=== PATIENT | female | born 1955 | race Caucasian/White ===

== ENCOUNTER → 2021-04-03 08:17 | Outpatient (BNVA) | payer MEDICARE, MEDICAID, SELFPAY | PROVIDERS: Visit Provider Nurse Practitioner Family | DX: G43.109 Migraine with aura, not intractable, without status migrainosus (principal); R25.1 Tremor, unspecified | CPT/HCPCS: Q3014 ==

== ENCOUNTER → 2021-05-26 08:21 | Outpatient (BNVA) | payer MEDICARE, MEDICAID, SELFPAY | PROVIDERS: PCP Internal Medicine; Visit Provider Nurse Practitioner Family | DX: G43.109 Migraine with aura, not intractable, without status migrainosus (principal); R53.1 Weakness; G25.0 Essential tremor | CPT/HCPCS: 99212 ==

== ENCOUNTER → 2021-08-04 08:09 | Outpatient (BNVA) | payer MEDICARE, MEDICAID, SELFPAY | PROVIDERS: PCP Internal Medicine; Visit Provider Nurse Practitioner Family | DX: G25.0 Essential tremor (principal); R20.2 Paresthesia of skin; R53.1 Weakness; G43.109 Migraine with aura, not intractable, without status migrainosus | CPT/HCPCS: 99212 ==

== ENCOUNTER 2021-08-20 08:28 | Outpatient (REF) | payer MEDICARE, MEDICAID, SELFPAY ==
--- NOTE | 2021-08-20 08:35 | EMG_ITS ---
This is a 65-year-old woman with numbness in both feet. She gets intermittent numbness and tingling that comes and goes. PHYSICAL EXAMINATION: On examination, she is alert and oriented with normal intellectual functions. Cranial nerves II through XII are normal. Reflexes hypoactive. IMPRESSION: Rule out sensory neuropathy. 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 Normal EMG of the right L4-S1 innervated muscles. MD OZE Macias/GRETCHEN / [id number]
== END 2021-08-20 08:29 | disposition home or self-care (01) ==
LOC: HO.NEURO 08:28
PROVIDERS: PCP Internal Medicine; Visit Provider Nurse Practitioner Family
DX: R20.2 Paresthesia of skin (principal)
CPT/HCPCS: 95885; 95911

== ENCOUNTER 2021-09-10 12:45 | Outpatient (REF) | payer MEDICARE, MEDICAID, SELFPAY ==
--- NOTE | 2021-09-10 12:48 | EEG_ITS ---
This is a 16-channel EEG with an EKG lead. The patient is reported awake during the tracing. Background EEG rhythm is 12 to 14 hertz low to medium amplitude posteriorly and lower amplitude fast anteriorly. Photic stimulation and hyperventilation were not performed. No definite sharp wave spikes or paroxysmal tendency noted. Cardiac lead does not reveal any significant abnormality. IMPRESSION: Unremarkable EEG. MD MAIA Villanueva/GRETCHEN / [id number]
== END 2021-09-10 12:46 | disposition home or self-care (01) ==
LOC: HO.NEURO 12:45
PROVIDERS: Visit Provider Nurse Practitioner Family
DX: G43.109 Migraine with aura, not intractable, without status migrainosus (principal); R53.1 Weakness
CPT/HCPCS: 95816

== ENCOUNTER → 2021-11-03 08:12 | Outpatient (BNVA) | payer MEDICARE, MEDICAID, SELFPAY | PROVIDERS: PCP Internal Medicine; Visit Provider Nurse Practitioner Family | DX: G25.0 Essential tremor (principal); R53.1 Weakness; G43.109 Migraine with aura, not intractable, without status migrainosus; R20.2 Paresthesia of skin | CPT/HCPCS: 99212 ==

== ENCOUNTER → 2022-07-01 10:31 | Outpatient (BNVA) | payer MEDICARE, MEDICAID, SELFPAY | PROVIDERS: PCP Internal Medicine; Visit Provider Nurse Practitioner Family | DX: G25.0 Essential tremor (principal); R20.2 Paresthesia of skin; Z79.899 Other long term (current) drug therapy | CPT/HCPCS: 99212 ==

== ENCOUNTER 2022-11-30 11:20 | Outpatient (AMB) | payer MEDICARE, MEDICAID, SELFPAY ==
--- NOTE | 2022-11-30 11:27 | MHC.OFFVIS ---
Intake Vital Signs 11/30/22 11:28 Height 5 ft 2 in Weight 220 lb 8 oz BMI 40.3 BP 130/72 Blood Pressure Location Rt brachial Position Sitting Pulse 98 Pulse Source Pulse Oximeter Pulse Oximetry (%) 99 Oxygen Delivery Method Room Air Intake Visit Reasons: 5m follow up Tremors-Confirmed Intake Note: Patient presents for 5 month follow up tremors. Patient states tremors are just getting worst . Allergies umeclidinium [From Incruse Ellipta] Allergy (Severe, Verified 11/30/22 11:30) Anaphylaxis mold Allergy (Intermediate, Verified 11/30/22 11:30) Itchy Eyes Medication List - Last Reconciled 11/30/22 by NAMRATA Guillermo albuterol sulfate 90 mcg/actuation (Ventolin HFA) 2 puffs inhalation Q4-6H PRN albuterol sulfate mg inhalation Q4H PRN alendronate 70 mg PO QWEEK amlodipine 10 mg PO DAILY aspirin 81 mg PO DAILY gvwyayeadt-nqydspmi-recdmbotmr 160-9-4.8 mcg/actuation (Breztri Aerosphere) inhalations inhalation cholecalciferol (vitamin D3) 25 mcg PO DAILY citalopram 20 mg PO DAILY estradiol 0.01%(0.1mg/gram) grams vaginal fenofibrate nanocrystallized 145 mg PO DAILY gabapentin 100mg bid and 300mg qhs orally bedtime; 30 days lancets (FreeStyle Lancets) As directed loratadine 20 mg PO DAILY lorazepam 0.5 mg PO DAILY PRN losartan 25 mg PO DAILY metformin 500 mg PO DAILY mirabegron ER (Myrbetriq) 25 mg PO DAILY multivitamin with folic acid 400 mcg (Daily-Alden (with folic acid)) 1 tab PO DAILY nortriptyline 50 mg PO BEDTIME omeprazole 40 mg PO DAILY ropinirole 0.5 mg (2 x 0.25 mg) PO TID 30 days rosuvastatin 40 mg PO DAILY tolterodine ER 4 mg PO DAILY topiramate (Topamax) 100 mg PO BEDTIME 30 days HPI HPI Comments History of Present Illness Details Right-handed 67-yr-old female presents for f/u visit. The tremor is more bothersome. The tremor is worse on the left, but she is more affected by the right handed tremor as she is right handed. The tremor makes it difficult to perform ADL's, such as writing, eating, holding something. The tremor causes social embarrassment, especially when trying to eat. Ropinirole is not helping. Pt is interested in trying Casey trio type device- her cardiac loop montor is being removed next week. Pt reports her BLE numbness/tingling is better with gabapentin and using slippers in her home helps. Her migariens are well-controlled. She is using her CPAP nightly, but sometimes she may not sleep well. [facility] Medical History COPD (chronic obstructive pulmonary disease) Family History Father Myocardial infarction FHx: prostate cancer Emphysema lung Mother HTN (hypertension) Breast cancer Cervical cancer Social History Household Members: None Housing: Apartment Alcohol intake: current Alcohol intake frequency: holidays/special occasions only Patient Tobacco Use Status: Former Tobacco user Substance Use Type: Marijuana Review of Systems Const All systems reviewed & are unremarkable except as noted in HPI and below Physical Exam Vital Signs: Last Vital Signs Pulse 98 11/30/22 11:28 BP 130/72 11/30/22 11:28 Pulse Ox 99 11/30/22 11:28 Oxygen Delivery Method Room Air 11/30/22 11:28 BMI result Body Mass Index 40.3 Const General: cooperative and no acute distress Resp Effort & Inspection: normal respiratory effort and able to speak in complete sentences Neuro Other: General: A&O x's 3 Expression: Intact- chronic mild left facial droop Voice: Intact Tremor: BUE L > R kinetic and postural tremor. Tone: None Dyskinesia: None FFM: Intact Gait: Steady gait Psych: Pleasant affect Assessment & Plan Assessment & Plan (1) Essential tremor: Code(s): G25.0 - Essential tremor (2) Migraine with aura: Code(s): G43.109 - Migraine with aura, not intractable, without status migrainosus (3) Paresthesia of both lower extremities: Code(s): R20.2 - Paresthesia of skin Plan For Essential tremor- Continue Ropinirole for now. Once cardiac loop recorder removed next week-will initiate order for Casey kIQ System with TAPS (Transcutaneous Afferent Patterned Stimulation)- bilateral arms. Pt would benefit from TAPs tx as pt has bothersome kinetic and postural tremor d/t ET which impedes ADL abilities of writing and eating, which causes emotional distress. Pt tremor perists despite reasonable trials of Primidone, Gabapentin, Ropinirole. Pt is not a candidate to try Beta-Blockers d/t symptomatic Asmtha/COPD. Future considerations- DBS, FUS. For paresthesias: Continue Gabapentin to 100mg bid and 300mg qhs For migraine: Continue Nortriptyline, Topiramate. ?f/u in 4 months or sooner prn Coding Level of Care Code Est Pt Level 4 (39932) Diagnoses Essential tremor G25.0 Migraine with aura G43.109 Paresthesia of both lower extremities R20.2
[2022-11-30 11:28] VITALS: BP 130/72; PULSE 98; O2SAT 99; BMI 40.3
== END 2022-11-30 12:03 | disposition home or self-care (01) ==
PROVIDERS: Visit Provider Nurse Practitioner Family
DX: G25.0 Essential tremor (principal); G43.109 Migraine with aura, not intractable, without status migrainosus; R20.2 Paresthesia of skin
CPT/HCPCS: 99214

== ENCOUNTER → 2022-11-30 11:20 | Outpatient (BNVA) | payer MEDICARE, MEDICAID, SELFPAY | PROVIDERS: Visit Provider Nurse Practitioner Family | DX: G25.0 Essential tremor (principal); G43.109 Migraine with aura, not intractable, without status migrainosus; R20.2 Paresthesia of skin | CPT/HCPCS: 99212 ==

== ENCOUNTER 2023-06-22 13:56 | Outpatient (AMB) | payer OTHER, SELFPAY ==
--- NOTE | 2023-06-22 13:57 | MHC.OFFVIS ---
Vital Signs 06/22/23 14:07 Height 5 ft 2 in Weight 231 lb 8 oz BMI 42.3 BP 142/70 H Blood Pressure Location Rt brachial Position Sitting Pulse 111 H Pulse Source Pulse Oximeter Pulse Oximetry (%) 97 Oxygen Delivery Method Room Air Intake Visit Reasons: 4 mnts f/u appt-CONF w/address Intake Note: Patient presents for 4 months f/u. the tremors on both hands are getting worse. Wants to talk about deep breathing simulator. Allergies umeclidinium [From Incruse Ellipta] Allergy (Severe, Verified 06/22/23 14:02) Anaphylaxis mold Allergy (Intermediate, Verified 06/22/23 14:02) Itchy Eyes Medication List - Last Reconciled 06/22/23 by ANMRATA Guillermo albuterol sulfate 90 mcg/actuation (Ventolin HFA) 2 puffs inhalation Q4-6H PRN albuterol sulfate mg inhalation Q4H PRN alendronate 70 mg PO QWEEK amlodipine 10 mg PO DAILY aspirin 81 mg PO DAILY imrfqrfxvg-ltwcbkht-jieovjqyop 160-9-4.8 mcg/actuation (Breztri Aerosphere) inhalations inhalation bupropion HCl 100 mg PO BID cholecalciferol (vitamin D3) 25 mcg PO DAILY citalopram 20 mg PO DAILY estradiol 0.01%(0.1mg/gram) grams vaginal fenofibrate nanocrystallized 145 mg PO DAILY gabapentin 100mg bid and 300mg qhs orally bedtime; 30 days lancets (FreeStyle Lancets) As directed loratadine 20 mg PO DAILY lorazepam 0.5 mg PO DAILY PRN losartan 25 mg PO DAILY metformin 500 mg PO DAILY mirabegron ER (Myrbetriq) 25 mg PO DAILY nortriptyline 50 mg PO BEDTIME omeprazole 40 mg PO DAILY rimegepant (Nurtec ODT) 75 mg PO ONCE PRN 30 days MDD 1 tab ropinirole 0.5 mg (2 x 0.25 mg) PO TID 30 days rosuvastatin 40 mg PO DAILY tolterodine ER 4 mg PO DAILY topiramate (Topamax) 100 mg PO BEDTIME 30 days HPI Comments Details: 67-yr-old female presents for f/u visit. Pt had a [facility] ER eval for sudden onset left sided weakness. Head CT, Head/Neck CTA, Brain MRI w/o- no acute findings, slight progression of white matter T2/FLAIR hyperintensities. Per pt, a nurse told he rsmatthew had had a TIA. Per d/c note- dx likely atypical migraine . Pt had notified the office after this, as pt has had increase in her typical migarine. Pt has h/o migraine a/w left sided weakness and paresthesias. Pt was advised to start Nurtec. Pt states since, her migraines are well controlled on Topiramate, and Nurtec helps with breakthrough migraine. Having 3-4 migraines per month. Pt is curious about DBS tx for tremor. Pt reports she can sometimes be dizzy- like the world is moving or like the ground is moving. She can also feel lightheaded, when she stands up to quickly will fall back onto her couch. She had a recent fall, tripped over her own 2 feet. Pt states at her PCP office, she had a vestibular eval- was told dizziness not r/t inner ear. Also EKG and orthostatic BPs- pt states was abnormal. Her PCP has recently referred her to Cardiology- [facility] clinic. She is working w/ a community health specialist from [employer] in her building. She is now attending meals in a community room- provided by [employer]. They are helping her get a lifeline device, MANAGER PATIENT, and straighten out her food stamps. Pt reports she is still having tremors- with rest and action. Does not notice if more right or left sided. She is prone to spill things. She is using her heavy silverware and rubber straws. Using covered water cup, but has not been using this for coffee. Hands can feel stiff, tingling, cold- especially if holding something for a long time. 03/10/23, Brain MRI w/o IMPRESSION: 1. No acute/subacute infarct, mass, hemorrhage, or other acute intracranial abnormality. 2. Minimal T2/FLAIR hyperintense foci in the white matter, nonspecific but most likely reflecting chronic small vessel disease which has slightly progressed since 10/07/2020. 03/09/23, CT Angio Head/Neck Hyperacute Stroke IMPRESSION: No proximal occlusion or high grade stenosis in the major arteries of the head and neck. 04/10/19, Echocardiogram, Summary The left ventricular size is normal. Left ventricular wall thickness is normal. The LV systolic function is vigorous . The left ventricular ejection fraction is 65-75 %. No obvious wall motion abnormalities seen on limited views. Left ventricular filling pressures are indeterminate. PFSH Medical History COPD (chronic obstructive pulmonary disease) Family History Father Myocardial infarction FHx: prostate cancer Emphysema lung Mother HTN (hypertension) Breast cancer Cervical cancer Social History Household Members: None Housing: Apartment Alcohol intake: current Alcohol intake frequency: holidays/special occasions only Patient Tobacco Use Status: Former Tobacco user Substance Use Type: Marijuana Review of Systems Const All systems reviewed & are unremarkable except as noted in HPI and below Physical Exam Vital Signs: Last Vital Signs Pulse 111 H 06/22/23 14:07 BP 142/70 H 06/22/23 14:07 Pulse Ox 97 06/22/23 14:07 Oxygen Delivery Method Room Air 06/22/23 14:07 BMI result Body Mass Index 42.3 Const General: cooperative and no acute distress Resp Effort & Inspection: normal respiratory effort and able to speak in complete sentences Neuro Other: General: A&O x's 3 Expression: Intact- chronic mild left facial droop Voice: Intact Tremor: BUE L > R kinetic and postural tremor. Tone: None Dyskinesia: None FFM: Intact Foot taps- slight decrease on left Gait: Steady gait Psych: Pleasant affect Assessment & Plan Assessment & Plan (1) Vertigo: Code(s): R42 - Dizziness and giddiness Category: Medical (2) Tremor: Code(s): R25.1 - Tremor, unspecified Category: Medical (3) Orthostatic lightheadedness: Code(s): R42 - Dizziness and giddiness Category: Medical (4) Paresthesia and pain of both upper extremities: Code(s): R20.2 - Paresthesia of skin; M79.601 - Pain in right arm; M79.602 - Pain in left arm Category: Medical (5) Migraine with aura: Code(s): G43.109 - Migraine with aura, not intractable, without status migrainosus Category: Medical Plan Pt is advsied to: Have PT vestibular eval & tx.- order given to pt. Tilt table test to assess for cardiogenic vs neurogenic orthostatic hypotension. Cardiology consult as ordered BUE EMG/NCS. For Essential tremor- Discussed that pt's s/s of dizziness, lightheadedness will need to be better managed prior to considering DBS tx for tremor. Continue Ropinirole for now- may need to consider reducing. Pt tremor perists despite reasonable trials of Primidone, Gabapentin, Ropinirole. Pt is not a candidate to try Beta-Blockers d/t symptomatic Asmtha/COPD. For paresthesias: Continue Gabapentin to 100mg bid and 300mg qhs For migraine: Continue Nortriptyline, Topiramate. Continue Nurtec ODT 75mg qd prn. Acute migraine tx contraindications: all triptans contraindicated d/t h/o TIA, HTN, HLD. ?f/u upon review of above and in 6 months or sooner prn Orders: Orders ECG Tilt Table Test Today M79.601 - Pain in right arm, M79.602 - Pain in left arm, R20.2 - Paresthesia of skin, R25.1 - Tremor, unspecified, R42 - Dizziness and giddiness NE electromyogram (EMG) Today M79.601 - Pain in right arm, M79.602 - Pain in left arm, R20.2 - Paresthesia of skin, R25.1 - Tremor, unspecified PT Evaluation and Treatment Today R42 - Dizziness and giddiness NE nerve conduction velocity Today M79.601 - Pain in right arm, M79.602 - Pain in left arm, R20.2 - Paresthesia of skin, R25.1 - Tremor, unspecified Coding Level of Care Code Est Pt Level 4 (42473) Diagnoses Vertigo R42 Tremor R25.1 Orthostatic lightheadedness R42 Paresthesia and pain of both upper extremities R20.2; M79.601; M79.602 Migraine with aura G43.109
[2023-06-22 14:07] VITALS: BP 142/70; PULSE 111; O2SAT 97; BMI 42.3
== END 2023-06-22 14:02 | disposition home or self-care (01) ==
PROVIDERS: PCP Internal Medicine; Visit Provider Nurse Practitioner Family
DX: R42 Dizziness and giddiness (principal); R25.1 Tremor, unspecified; R20.2 Paresthesia of skin; M79.601 Pain in right arm; M79.602 Pain in left arm; G43.109 Migraine with aura, not intractable, without status migrainosus
CPT/HCPCS: 99214

== ENCOUNTER → 2023-06-22 13:56 | Outpatient (BNVA) | payer OTHER, MEDICARE, SELFPAY | PROVIDERS: PCP Internal Medicine; Visit Provider Nurse Practitioner Family | DX: R42 Dizziness and giddiness (principal); R25.1 Tremor, unspecified; R20.2 Paresthesia of skin; M79.601 Pain in right arm; M79.602 Pain in left arm; G43.109 Migraine with aura, not intractable, without status migrainosus; Z79.899 Other long term (current) drug therapy | CPT/HCPCS: 99212 ==

== ENCOUNTER 2023-06-29 08:27 | Outpatient (REF) | payer OTHER, SELFPAY ==
--- NOTE | 2023-06-29 08:29 | EMG_ITS ---
Bilateral median and ulnar motor and sensory studies were performed. Bilateral radial and median and lateral antecubital sensory studies were performed and paraspinal muscles were tested with a needle. IMPRESSION: Mild bilateral median neuropathy across carpal tunnel affecting sensory components. MD MAIA Villanueva/GRETCHEN / [id number]
== END 2023-06-29 08:28 | disposition home or self-care (01) ==
LOC: HO.NEURO 08:27
PROVIDERS: PCP Internal Medicine; Visit Provider Nurse Practitioner Family
DX: R25.1 Tremor, unspecified (principal); R20.2 Paresthesia of skin; M79.601 Pain in right arm; M79.602 Pain in left arm
CPT/HCPCS: 95886; 95913

== ENCOUNTER 2024-02-04 14:12 | Outpatient (AMB) | payer OTHER, SELFPAY ==
--- OUTSIDE RECORDS SUMMARY | 2024-02-04 14:14 | XMS_ITS ---
Author Organization [facility] Address [address] [facility], [facility] [place] [address] Care Team Providers Care Coal Passer Name Role Phone Jude Potts [phone] ALLERGIES, ADVERSE REACTIONS, ALERTS Substance Code Code System Type Reaction Severity Status Start Date End Date Incruse Ellipta 0989443 RxNorm Drug allergy () 0 Incruse Ellipta 2643378 RxNorm Drug allergy () 1 MEDICATIONS Medication Code Code System Start Date Stop Date Route Dosage Directions Fill Instructions Augmentin 088155 RxNorm 020 2019 oral 1 doxycycline monohydrate 6295738 RxNorm 020 2019 1 prednisone 364075 RxNorm 020 2019 1 simvastatin RxNorm 11/05/19 22 tramadol RxNorm 11/05/19 22 loratadine RxNorm 11/05/19 22 alendronate RxNorm 04/03/19 23 benzonatate RxNorm 04/03/19 23 losartan RxNorm 04/03/19 23 rosuvastatin RxNorm 04/03/19 23 tolterodine RxNorm 04/03/19 23 Paxlovid (EUA) 7813446 RxNorm 04/03/19 23 2022 oral 3 requip RxNorm losartan 0 RxNorm oral lorazepam RxNorm 020 docusate sodium 0 RxNorm oral metformin RxNorm 11/05/19 22 hydralazine 0 RxNorm oral alendronate 0 RxNorm oral albuterol sulfate RxNorm diclofenac sodium 0 RxNorm topical gabapentin RxNorm citalopram RxNorm 020 benzonatate 585854 RxNorm 020 01/24 oral 1 topiramate RxNorm amlodipine RxNorm 020 omeprazole RxNorm 020 nortriptyline RxNorm 020 Vitamin D3 RxNorm benzonatate 514606 RxNorm 022 023 oral 1 prednisone 489857 RxNorm 1 021 oral 1 Aspirin Childrens RxNorm 020 Ventolin HFA RxNorm 04/03/19 rosuvastatin 0 RxNorm oral bupropion HBr 0 RxNorm oral Breztri Aerosphere 0 RxNorm inhalation Lagevrio (EUA) 1048998 RxNorm 11/05/19 22 2021 oral 4 PROBLEMS Problem Name Code Code System Start Date End Date Stat Anxiety disorder 01958330 [facility] 01/10/2020 Ac tive GERD 068649472 [facility] 01/10/2020 Active Hyperlipidemia 78962094 [facility] 01/10/2020 Acti ve Hypertension 84727329 [facility] 01/10/2020 Active Depression 38484606 [facility] 01/10/2020 Active Tremor, unspecified (781.0, R25.1) 57156597 [facility] Inactive Allergic rhinitis 23257979 [facility] 01/10/2020 A ctive Asthma 233995937 [facility] 01/10/2020 Active Migraines 91463061 [facility] 01/10/2020 Active Insomnia (780.52, G47.00) 001275628 [facility] 06/16/2020 Inactive Bronchitis, acute (466.0, J20.9) 46742853 [facility] 020 Inactive Chronic obstructive pulmonar y disease, unspecified 11909530 [facility] 01/15/2020 Active Contact with and (suspected) exposure to other viral communicable diseases (Z20.828) [facility] 01/19/2020 Inactive Chronic obstructive pulmonar y disease with (acute) lower respiratory infection (J44.0) [facility] 01/19/2020 Inactive Cough (R05) [facility] 01/19/2020 Inactive Other disorders of periphera l nervous system (355.9, G64) 406774884 [facility] 06/16/2020 Inactive COVID-19, confirmed by labor atory testing (U07.1) 627999253 [facility] 11/04/2021 Inactive Diabetes, Type 2 64996120 [facility] 11/04/2021 Act maren Cough, unspecified (R05.9) [facility] 11/06/2021 Inactive COVID-19, Screening Encounte r (Z11.52) 717384420 [facility] 02/10/2022 Inactive Viral infection, unspecified (B34.9) 04908184 [facility] 02/10/2022 Inactive Other fatigue (R53.83) [facility] 02/12/2022 Inactive Contact with and (suspected) exposure to COVID-19 (Z20.822) [facility] 02/12/2022 Inactive Acute pharyngitis, unspecifi ed (J02.9) [facility] 04/07/2022 Inactive Restless legs syndrome 17205576 [facility] Active Age-related osteoporosis wit hout current pathological fracture 42003862 [facility] Active Osteoporosis without current pathological fracture 76878554 [facility] Active Other specified forms of tremor 01158991 [facility] Active Chest pain, unspecified 43611257 [facility] 01/11/2024 Active ENCOUNTERS Encounter Diagnosis Code Code System Date Stat Chest pain, unspecified 93170920 [facility] 01/11/2024 A ctive IMMUNIZATIONS Vaccine Code Code System Vaccine Name Date Status Lot Number Photoengraving Etcher Name Additional Notes 115 CVX Tdap 06/27/19 23 Completed [id number] [employer] VITAL SIGNS Code Code System Vitals Name Date Value and Un its 8462-4 Loinc Blood Pressure-Diastolic 01/11/2024 68 mmHg 8480-6 [facility] Blood Pressure-Systolic 01/11/2024 1 07 mmHg 8867-4 [facility]inc Heart Rate 01/11/2024 113 /min 9279-1 Loinc Respiratory Rate 01/11/2024 20 /min 8310-5 Loinc Body Temperature 01/11/2024 97.6 F 00809-0 [facility] Oxygen Saturation 01/11/2024 98 % SOCIAL HISTORY * None PROCEDURES Code Code System Procedure Date Status Notes 40651 Cpt4 Electrocardiogra m - 12 Lead 01/11/2024 completed Jude Potts - 01/11/2024 96 beats per minute, regular rate, sinus rhythm, Impression: Normal sinus rhythm with rate of 96, wavy baseline but appears to have around half to [address] depression in 2, V4, V5, V6. A9150 Cpt4 PO Aspirin 01/11/2024 completed Melanie Pavon - 01/11/2024 Dose: 324 mg (4?81 mg). Form: tablet (chewable). Route: oral. Expiration date: 01/10/2025. Photoengraving Etcher lot #: [id number]. [facility] #: [id number].Patient was observed for 15 minutes. Patient tolerated procedure well. MEDICAL EQUIPMENT * Patient has no history of implantable devices ASSESSMENT * None TREATMENT PLAN No Treatment Plan Items Lab Tests None GOALS * None HEALTH CONCERNS * No Health Concerns FUNCTIONAL AND COGNITIVE STATUS * None CONSULTATION NOTES * Kailyn Steve - 01/11/2024 ED TransferSchedule: CompletedNotes:* Comments: 68-year-old female with a history of COPD, hypertension presenting with cough for 2 weeks, however, also notes she has been experiencing chest pain with right arm pain and numbness since last night. EKG here demonstrates ST abnormalities primarily in the lateral precordial leads. Full dose chewable aspirin given. Mode of transport is EMSStability Status is stableOrdered 01/11/2024 12:17 PM by Julian Juarez edited 01/12/2024 04:08 PM by Kailyn Steve MA HARGE SUMMARY NOTES * None HISTORY AND PHYSICAL NOTES * Reason for visit - Illness Patient: GAGE JORDAN, Sex: F (ID# [id number]) Date of : 1955 (68 years) Visit on 01/11/2024 (Log# [id number]) Historian: Self History of Present Illness: 68-year-old female with a history of hypertension and COPD presenting for evaluation of cough, chest pain and right arm pain. Patient states she has been coughing for 2 weeks. Cough seems to have gotten worse. Starting last night she began having pain in the right side of her chest that extends into her right arm with right arm numbness. She feels this is triggered by coughing, however, patient has been repeatedly coughing so seems difficult to discern pain induced by coughing from the chest/arm pain being from elsewhere. Patient has no associated diaphoresis, nausea vomiting or weakness. Complaint: The patient presents with a chief complaint of cough of the chest since 2 weeks ago. The patient also reports congestion, headache, and nasal congestion as abnormal symptoms related to the complaint. Review of Systems: The patient complains of the following recent symptoms: Neurological: headache ENT and Mouth: nasal congestion Respiratory: congestion cough: See HPI Allergies: Incruse Ellipta: Drug allergy. Medications: lorazepam: lorazepam; 0 refill(s); metformin: metformin; 0 refill(s); albuterol sulfate: albuterol sulfate; 0 refill(s); gabapentin: gabapentin; 0 refill(s); citalopram: citalopram; 0 refill(s); topiramate: topiramate; 0 refill(s); amlodipine: amlodipine; 0 refill(s); omeprazole: omeprazole; 0 refill(s); nortriptyline: nortriptyline; 0 refill(s); Vitamin D3: Vitamin D3; 0 refill(s); Aspirin Childrens: Aspirin Childrens; 0 refill(s); Ventolin HFA: Ventolin HFA; 0 refill(s); alendronate: alendronate; (oral) days; 0 refill(s); losartan: losartan; (oral) days; 0 refill(s); rosuvastatin: rosuvastatin; (oral) days; 0 refill(s); requip: requip; 0 refill(s); Breztri Aerosphere: Breztri Aerosphere; (inhalation) days; 0 refill(s); bupropion HBr: bupropion HBr; (oral) days; 0 refill(s); diclofenac sodium: diclofenac sodium; (topical) days; 0 refill(s); docusate sodium: docusate sodium; (oral) days; 0 refill(s); hydralazine: hydralazine; (oral) days; 0 refill(s); Problem List: Anxiety disorder (status Active) GERD (status Active) Hyperlipidemia (status Active) Hypertension (status Active) Depression (status Active) Allergic rhinitis (status Active) Asthma (status Active) Migraines (status Active) Chronic obstructive pulmonary disease, unspecified (status Active) Diabetes, Type 2 (status Active) Restless legs syndrome (status Active) Age-related osteoporosis without current pathological fracture (status Active) Osteoporosis without current pathological fracture (status Active) Other specified forms of tremor (status Active) Surgeries: Bladder surgery, w/cryosurgery: - (Not Sure of Date) Hysterectomy, Partial: - (Not Sure of Date) Ankle Surgery, NOS: - (Not Sure of Date) Appendectomy: - (Not Sure of Date) Carpal Tunnel Release: - (Not Sure of Date) Shoulder Surgery: - (Not Sure of Date) Tubal Ligation: - (Not Sure of Date) Social History: Tobacco Use: denies Alcohol: denies Street / Unprescribed Drugs: denies Family History: patient specifies no conditions Preventive Measures: patient specifies all up-to-date Vitals: 11:40 AM (01/11/2024)Temperature: 97.6 ?F, Pulse: 113 BPM, BP: 107/68, Respirations: 20/min, O2 Saturation: 98%, O2 Delivery: RAFirst entered 01/11/2024 11:40 by Melanie Pavon Physical Exam: The following exam elements were documented to be normal: Psychiatric: oriented and alert. General: Well appearing, no acute distress HEENT: - NC/AT - no conjunctival injection or scleral icterus CV: RRR, no mgr Lungs: Minor scattered wheezing, rhonchi that clear with cough MSK: Moving all extremities Neuro: Awake and alert x3, no focal deficits Procedures and Supplies: Electrocardiogram - 12 Lead96 beats per minute, regular rate, sinus rhythm, Impression: Normal sinus rhythm with rate of 96, wavy baseline but appears to have around half to [address] depression in 2, V4, V5, V6. Code(s): 23822 Ordered 01/11/2024 12:06 by Jude Potts Completed 01/11/2024 12:12 by Melanie Pavon Reviewed 01/11/2024 12:15 by Jude Potts PO AspirinDose: 324 mg (4?81 mg). Form: tablet (chewable). Route: oral. Expiration date: 01/10/2025. Photoengraving Etcher lot #: [id number]. [facility] #: [id number]. Patient was observed for 15 minutes. Patient tolerated procedure well. Code(s): A9150 Order entered 01/11/2024 12:18 by Melanie Pavon Completed 01/11/2024 12:18 by Melanie Pavon Diagnoses: Chest pain, unspecified (R07.9) Differential Diagnosis: ACS Muscular chest pain with pinched nerve Medical Decision Making Notes: EMS contacted immediately after evaluation and EKG obtained. Patient's chest and right arm pain concerning for potential cardiac etiology. No prior EKGs for comparison. Referrals: ED Transfer Schedule: To be scheduled STAT. Notes: Comments: 68-year-old female with a history of COPD, hypertension presenting with cough for 2 weeks, however, also notes she has been experiencing chest pain with right arm pain and numbness since last night. EKG here demonstrates ST abnormalities primarily in the lateral precordial leads. Full dose chewable aspirin given. Mode of transport is EMS Stability Status is stable Ordered 01/11/2024 12:17 PM by Jude Potts PA-C Visit discharged at 01/11/2024 12:26:49 PM by Jude Potts PA-C Signed electronically by Jude Potts PA-C on 01/11/2024 12:26:49 PM IMAGING NOTES * None LABORATORY REPORT NARRATIVE NOTES * None PATHOLOGY REPORT NARRATIVE NOTES * None PROGRESS NOTES * None
--- OUTSIDE RECORDS SUMMARY | 2024-02-04 14:14 | XMS_ITS ---
Author Organization [facility] Address [address] [facility], [facility] [place] [address] Care Team Providers Care Attacher Name Role Phone Jude Potts [phone] ALLERGIES, ADVERSE REACTIONS, ALERTS Substance Code Code System Type Reaction Severity Status Start Date End Date Incruse Ellipta 5214850 RxNorm Drug allergy () 1 Incruse Ellipta 8485437 RxNorm Drug allergy () 0 MEDICATIONS Medication Code Code System Start Date Stop Date Route Dosage Directions Fill Instructions Augmentin 123436 RxNorm 020 2019 oral 1 doxycycline monohydrate 8166786 RxNorm 020 2019 1 prednisone 917972 RxNorm 020 2019 1 simvastatin RxNorm 11/05/19 22 tramadol RxNorm 11/05/19 22 loratadine RxNorm 11/05/19 22 alendronate RxNorm 04/03/19 23 benzonatate RxNorm 04/03/19 23 losartan RxNorm 04/03/19 23 rosuvastatin RxNorm 04/03/19 23 tolterodine RxNorm 04/03/19 23 Paxlovid (EUA) 3701221 RxNorm 04/03/19 23 2022 oral 3 requip RxNorm losartan 0 RxNorm oral lorazepam RxNorm 020 docusate sodium 0 RxNorm oral metformin RxNorm 11/05/19 22 hydralazine 0 RxNorm oral alendronate 0 RxNorm oral albuterol sulfate RxNorm diclofenac sodium 0 RxNorm topical gabapentin RxNorm citalopram RxNorm 020 benzonatate 531883 RxNorm 020 01/24 oral 1 topiramate RxNorm amlodipine RxNorm 020 omeprazole RxNorm 020 nortriptyline RxNorm 020 Vitamin D3 RxNorm benzonatate 780821 RxNorm 022 023 oral 1 prednisone 465528 RxNorm 1 021 oral 1 Aspirin Childrens RxNorm 020 Ventolin HFA RxNorm 04/03/19 rosuvastatin 0 RxNorm oral bupropion HBr 0 RxNorm oral Breztri Aerosphere 0 RxNorm inhalation Lagevrio (EUA) 1492494 RxNorm 11/05/19 22 2021 oral 4 PROBLEMS Problem Name Code Code System Start Date End Date Stat Anxiety disorder 16476100 [facility] 01/10/2020 Ac tive GERD 952532853 [facility] 01/10/2020 Active Hyperlipidemia 23825790 [facility] 01/10/2020 Acti ve Hypertension 90124352 [facility] 01/10/2020 Active Depression 25882162 [facility] 01/10/2020 Active Tremor, unspecified (781.0, R25.1) 17798698 [facility] Inactive Allergic rhinitis 62798586 [facility] 01/10/2020 A ctive Asthma 111697473 [facility] 01/10/2020 Active Migraines 26834354 [facility] 01/10/2020 Active Insomnia (780.52, G47.00) 391288252 [facility] 06/16/2020 Inactive Bronchitis, acute (466.0, J20.9) 37317638 [facility] 020 Inactive Chronic obstructive pulmonar y disease, unspecified 34132389 [facility] 01/15/2020 Active Contact with and (suspected) exposure to other viral communicable diseases (Z20.828) [facility] 01/19/2020 Inactive Chronic obstructive pulmonar y disease with (acute) lower respiratory infection (J44.0) [facility] 01/19/2020 Inactive Cough (R05) [facility] 01/19/2020 Inactive Other disorders of periphera l nervous system (355.9, G64) 117192189 [facility] 06/16/2020 Inactive COVID-19, confirmed by labor atory testing (U07.1) 195389014 [facility] 11/04/2021 Inactive Diabetes, Type 2 88728666 [facility] 11/04/2021 Act maren Cough, unspecified (R05.9) [facility] 11/06/2021 Inactive COVID-19, Screening Encounte r (Z11.52) 708538610 [facility] 02/10/2022 Inactive Viral infection, unspecified (B34.9) 88041831 [facility] 02/10/2022 Inactive Other fatigue (R53.83) [facility] 02/12/2022 Inactive Contact with and (suspected) exposure to COVID-19 (Z20.822) [facility] 02/12/2022 Inactive Acute pharyngitis, unspecifi ed (J02.9) [facility] 04/07/2022 Inactive Restless legs syndrome 47738571 [facility] Active Age-related osteoporosis wit hout current pathological fracture 64982759 [facility] Active Osteoporosis without current pathological fracture 18559218 [facility] Active Other specified forms of tremor 15159280 [facility] Active Chest pain, unspecified 04002703 [facility] 01/11/2024 Active ENCOUNTERS Encounter Diagnosis Code Code System Date Stat COPD 68110265 [facility] 04/13/2023 Active Acute cough 64328659 [facility] 04/13/2023 Active IMMUNIZATIONS Vaccine Code Code System Vaccine Name Date Status Lot Number Revenue Agent Name Additional Notes 115 CVX Tdap 06/27/19 23 Completed [id number] [employer] P[employer]ur VITAL SIGNS Code Code System Vitals Name Date Value and Un its 8462-4 [facility] Blood Pressure-Diastolic 04/13/2023 85 mmHg 8480-6 [facility] Blood Pressure-Systolic 04/13/2023 1 43 mmHg 8867-4 [facility] Heart Rate 04/13/2023 96 /min 8310-5 Loinc Body Temperature 04/13/2023 98.2 F 75104-0 [facility] Oxygen Saturation 04/13/2023 99 % SOCIAL HISTORY * None PROCEDURES * None RESULTS Test Code Code System Description Result Value Date Ref erence Range [facility] SARS-CoV-2 NEGATIVE 04/13/2023 [facility] Flu A NEGATIVE 04/13/2023 Lo[facility] Flu B NEGATIVE 04/13/2023 Lo[facility] RSV NEGATIVE 04/13/2023 MEDICAL EQUIPMENT * Patient has no history of implantable devices ASSESSMENT Assessment You likely have a viral uppe r respiratory illness causing your symptoms.Take the prednisone as prescribed.Use your albuterol inhaler 2 puffs every 4-6 hours as needed.Warm tea with honey can be helpful.Take the cough medication as prescribed.We will contact you with the testing.We will contact you with the results of the COVID/FLU testing.If you test positive for COVID19:CDC guidelines for isolation:-Isolate for at least 5 days from symptom onset. Please note that the first day of illness is Day 0. - If you have no symptoms or your symptoms are resolving after 5 days you can leave your house, however, you must continue to wear a mask at all times when around others for an additional 5 days (through day 10 of illness). You should avoid high risk individuals. Avoid restaurants or other places where you would be required to take down your mask, which may result in you exposing others. - If you initially have no symptoms but begin feeling sick within 10 days of your positive result you must use the day of symptom onset as your new Day 0.- If you have a fever you must continue to stay home until your fever is resolved for at least 24 hours without the use of Tylenol and/or Motrin.-Do not go to places where you are unable to wear a mask, such as restaurants and some gyms, and avoid eating around others at home/school/work until after 10 days of illness.- Loss of sense of taste/smell does not need to be improved/resolved to meet criteria to come out of isolation as this can last for a prolonged period of time.- You may refer to the CDCs website, which has more detailed instructions and guidance TREATMENT PLAN Type Description Date MEDICATION Take 04/13/2023 MEDICATION Take 20 mg tablet 04/13/2023 APPOINTMENT If not feeling mervin r in 3 day(s), please see your primary care physician. If you do not have a primary care physician, please return to this clinic. 04/13/2023 Labs Tests Test Name Code Code System Date Cepheid SARS-CoV-2, Flu A/B, RSV Multiplex Assay, Amplified Probe Molecular RT-PCR / NAAT [address] [facility] 04/13/2023 GOALS * None HEALTH CONCERNS * No Health Concerns FUNCTIONAL AND COGNITIVE STATUS * None CONSULTATION NOTES * None DISCHARGE SUMMARY NOTES * None HISTORY AND PHYSICAL NOTES * Reason for visit - Illness IMAGING NOTES * None LABORATORY REPORT NARRATIVE NOTES * None PATHOLOGY REPORT NARRATIVE NOTES * None PROGRESS NOTES * None
[2024-02-04 14:36] VITALS: BMI 40.4
--- NOTE | 2024-02-04 14:36 | MHC.OFFVIS ---
Vital Signs 02/04/24 14:36 Height 5 ft 2 in Weight 221 lb BMI 40.4 Intake Visit Reasons: 6 mo f/u Intake Note: Patient presents for 6 month follow up. migraines are good but the tremors are bad. Allergies umeclidinium [From Incruse Ellipta] Allergy (Severe, Verified 02/04/24 14:40) Anaphylaxis mold Allergy (Intermediate, Verified 02/04/24 14:40) Itchy Eyes Medication List - Last Reconciled 02/04/24 by NAMRATA Guillermo albuterol sulfate 90 mcg/actuation (Ventolin HFA) 2 puffs inhalation Q4-6H PRN albuterol sulfate mg inhalation Q4H PRN alendronate 70 mg PO QWEEK amlodipine 10 mg PO DAILY aspirin 81 mg PO DAILY oteqnqhdbz-guoaamsf-hmmzqijoni 160-9-4.8 mcg/actuation (Breztri Aerosphere) inhalations inhalation bupropion HCl 100 mg PO BID cholecalciferol (vitamin D3) 25 mcg PO DAILY citalopram 20 mg PO DAILY estradiol 0.01%(0.1mg/gram) grams vaginal fenofibrate nanocrystallized 145 mg PO DAILY gabapentin 100mg bid and 300mg qhs orally bedtime; 30 days lancets (FreeStyle Lancets) As directed loratadine 20 mg PO DAILY lorazepam 0.5 mg PO DAILY PRN losartan 25 mg PO DAILY metformin 500 mg PO DAILY mirabegron ER (Myrbetriq) 25 mg PO DAILY nortriptyline 50 mg PO BEDTIME omeprazole 40 mg PO DAILY rimegepant (Nurtec ODT) 75 mg PO ONCE PRN 30 days MDD 1 tab ropinirole 0.5 mg (2 x 0.25 mg) PO TID 30 days rosuvastatin 40 mg PO DAILY tolterodine ER 4 mg PO DAILY topiramate (Topamax) 100 mg PO BEDTIME 30 days HPI Comments Details: 68-yr-old female presents for f/u visit. Pt reports her dizziness has been better w/ doing vestibular PT. She may occasionally have orthostatic lightheadedness if she stands up too quick. She has been having increased tremor- with rest and action. Does not notice if tremor is more right or left sided. Sometimes tremor interferes with her ability to prepare her food, paint, or draw. She states that the tremor does not normally make her anxious, as the people around her are used to her condition. However she does use some relaxation techniques, to try to reduce tremor when it occurs. She is prone to spill things. She is using her heavy silverware and rubber straws. Using covered water cup, but has not been using this for coffee. She is curious bout resuming medical marijuana- vapes or gummies. She had a medical marijuana card but just d/t a transportation issue. She has been going to [facility]. She has some hand tingling, soreness. She has distal finger nodules and left 2nd finger distal deformity- which patient attributes to how she washes the dishes. Reports her migraines are better controlled on Topiramate. Nurtec helps with breakthrough migraine. Having 3-4 migraines per month. [facility] Medical History COPD (chronic obstructive pulmonary disease) Family History Father Myocardial infarction FHx: prostate cancer Emphysema lung Mother HTN (hypertension) Breast cancer Cervical cancer Social History Household Members: None Housing: Apartment Alcohol intake: current Alcohol intake frequency: holidays/special occasions only Patient Tobacco Use Status: Former Tobacco user Substance Use Type: Marijuana Physical Exam Vital Signs: BMI result Body Mass Index 40.4 Const General: cooperative and no acute distress Resp Effort & Inspection: normal respiratory effort and able to speak in complete sentences Neuro Other: General: A&O x's 3 Expression: Intact- chronic mild left facial droop Voice: Intact Tremor: BUE L > R kinetic and postural tremor. Musculoskeletal: Bilateral DIP nodules. Left 2nd finger DIP deformity. Dyskinesia: None FFM: Intact Foot taps- slight decrease on left Gait: Steady gait Psych: Pleasant affect Assessment & Plan Assessment & Plan (1) Bilateral carpal tunnel syndrome: Code(s): G56.03 - Carpal tunnel syndrome, bilateral upper limbs Category: Medical (2) Vertigo: Code(s): R42 - Dizziness and giddiness Category: Medical (3) Tremor: Code(s): R25.1 - Tremor, unspecified Category: Medical (4) Orthostatic lightheadedness: Code(s): R42 - Dizziness and giddiness Category: Medical (5) Paresthesia and pain of both upper extremities: Code(s): R20.2 - Paresthesia of skin; M79.601 - Pain in right arm; M79.602 - Pain in left arm Category: Medical (6) Migraine with aura: Code(s): G43.109 - Migraine with aura, not intractable, without status migrainosus Category: Medical Plan For dizziness: Improved. Tilt table test- normal. Follow-up with cardiology as scheduled. For Essential tremor- Continue Ropinirole Discussed limitations of the current research in using marijuana for tremor symptoms. Discussed, if patient is to use this, she should do it through a certified medical marijuana clinic. Previous trials: Primidone, Gabapentin, Ropinirole. Pt is not a candidate to try Beta-Blockers d/t symptomatic Asmtha/COPD. For BUE paresthesias and hand soreness: BUE EMG/NCS- bilateral mild carpal tunnel syndrome. Trial bilateral carpal tunnel splint q.h.s.- order slip given to patient Continue Gabapentin to 100mg bid and 300mg qhs Will request Rheumatology consult- ? If arthritic changes could be contributing to her hand symptoms and tremor. For migraine: Continue Nortriptyline, Topiramate. Continue Nurtec ODT 75mg qd prn. Acute migraine tx contraindications: all triptans contraindicated d/t h/o TIA, HTN, HLD. ?f/u upon review of above and in 6 months or sooner prn Orders: Referrals Rheumatology Referral G25.0 - Essential tremor, G56.03 - Carpal tunnel syndrome, bilateral upper limbs, M79.601 - Pain in right arm, M79.602 - Pain in left arm, M79.643 - Pain in unspecified hand, R20.2 - Paresthesia of skin Medications: New [Bilateral cockup carpal tunnel splint] As directed 2 ea 0RF G56.03 - Carpal tunnel syndrome, bilateral upper limbs Refilled topiramate (Topamax) 100 mg PO BEDTIME 30 days 30 tabs 6RF Coding Level of Care Code Est Pt Level 4 (54944) Diagnoses Bilateral carpal tunnel syndrome G56.03 Vertigo R42 Tremor R25.1 Orthostatic lightheadedness R42 Paresthesia and pain of both upper extremities R20.2; M79.601; M79.602 Migraine with aura G43.109
== END 2024-02-04 15:11 | disposition home or self-care (01) ==
PROVIDERS: PCP Internal Medicine; Visit Provider Nurse Practitioner Family
DX: G56.03 Carpal tunnel syndrome, bilateral upper limbs (principal); R42 Dizziness and giddiness; R25.1 Tremor, unspecified; R20.2 Paresthesia of skin; M79.601 Pain in right arm; M79.602 Pain in left arm; G43.109 Migraine with aura, not intractable, without status migrainosus
CPT/HCPCS: 99214

== ENCOUNTER → 2024-02-04 14:12 | Outpatient (BNVA) | payer OTHER, SELFPAY | PROVIDERS: PCP Internal Medicine; Visit Provider Nurse Practitioner Family ==

== ENCOUNTER 2024-05-17 10:30 | Outpatient (AMB) | payer MEDICARE, SELFPAY ==
--- NOTE | 2024-05-17 10:33 | MHC.OFFVIS ---
Vital Signs 05/17/24 10:34 Height 5 ft 2 in Weight 214 lb 4.629 oz BMI 39.2 BP 130/70 Blood Pressure Location Rt brachial Position Sitting Pulse 79 Pulse Source Pulse Oximeter Pulse Oximetry (%) 97 Oxygen Delivery Method Room Air Intake Visit Reasons: CTS/internal ref Intake Note: Patient presents today with CTS. Allergies umeclidinium [From Incruse Ellipta] Allergy (Severe, Verified 05/17/24 10:34) Anaphylaxis mold Allergy (Intermediate, Verified 05/17/24 10:34) Itchy Eyes trellegy ellipta Allergy (Uncoded 05/17/24 10:37) Anaphylaxis HPI HPI CTS/internal ref: Details: New patient visit. Referred by Neurology for concern for arthritis. Patient has been experiencing constant pain in left 2nd finger DIPJ. She recently noticed the pain and it has been constant. She has had discomfort intermittently in other joints. No joint swelling. She is able to hold things. Denies things falling out of her hands. She has history of longstanding tremors previously treated with propranolol and gabapentin per patient. Patient is concerned her tremors are related to Parkinson's disease as her brother and father has had history of Parkinson's disease but her Neurology provider has reassured her that she does not have Parkinson's disease. She reports she was recently diagnosed with carpal tunnel syndrome on nerve conduction study. She was prescribed splints to wear at night but insurance will not cover them. 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 She is currently on disability. She vapes. Mother had rheumatoid arthritis. In no other rheumatological history in the family. Medical history, family history and medication list reviewed in expanse. [facility] Medical History (Updated 05/17/24 @ 11:53 by Mariano Juarez MD) Rupture of ligament of right ankle Rotator cuff injury COPD (chronic obstructive pulmonary disease) Family History Father Myocardial infarction FHx: prostate cancer Emphysema lung Mother HTN (hypertension) Breast cancer Cervical cancer Social History Household Members: None Housing: Apartment Alcohol intake: current Alcohol intake frequency: holidays/special occasions only Patient Tobacco Use Status: Former Tobacco user Substance Use Type: Marijuana Review of Systems Const All systems reviewed & are unremarkable except as noted in HPI and below Physical Exam Vital Signs: Last Vital Signs Pulse 79 05/17/24 10:34 BP 130/70 05/17/24 10:34 Pulse Ox 97 05/17/24 10:34 Oxygen Delivery Method Room Air 05/17/24 10:34 BMI result Body Mass Index 39.2 Const Other: General: Comfortable CVS: RRR Respiratory: clear to auscultation bilaterally. Good respiratory effort Skin: No lesions seen MSK: Tender to palpate multiple DIPJs of bilateral hands. Subluxation of DIPJs. No synovitis of any joint. Weak junk removal specialist bilateral. No tremors noted. Normal range of motion of upper extremity. Normal hip external rotation. Knee flexion bilateral 90 degrees. Assessment & Plan Assessment & Plan (1) Osteoarthritis of hands, bilateral: Comment: Nodular. Clinical diagnosis. We discussed diagnosis, next steps in evaluation and conservative management. Code(s): M19.041 - Primary osteoarthritis, right hand; M19.042 - Primary osteoarthritis, left hand Category: Medical Plan: Baseline labs ordered prior to starting diclofenac gel X-ray bilateral hands ordered OT ordered to improve hand strength She is agreeable to try diclofenac gel 1% applied to affected area up to 4 times a day. We discussed side effects and benefits She was told to avoid oral NSAIDs due to history of hypertension and hyperlipidemia Return to clinic in 3 months Orders: Orders XR hand RT min 3V Today M19.041 - Primary osteoarthritis, right hand, M19.042 - Primary osteoarthritis, left hand Alanine Aminotransferase Today M19.041 - Primary osteoarthritis, right hand, M19.042 - Primary osteoarthritis, left hand XR hand LT min 3V Today M19.041 - Primary osteoarthritis, right hand, M19.042 - Primary osteoarthritis, left hand Aspartate Amino Transferase Today M19.041 - Primary osteoarthritis, right hand, M19.042 - Primary osteoarthritis, left hand Creatinine Today M19.041 - Primary osteoarthritis, right hand, M19.042 - Primary osteoarthritis, left hand OT Evaluation and Treatment Today M19.041 - Primary osteoarthritis, right hand, M19.042 - Primary osteoarthritis, left hand Medications: New diclofenac sodium 1% apply to affected area every 4-6 hours PRN joint pain 2 grams topical QID 100 grams 5RF Coding Level of Care Code New Pt Level 4 (40309) Diagnoses Osteoarthritis of hands, bilateral M19.041; M19.042
[2024-05-17 10:34] VITALS: BP 130/70; PULSE 79; O2SAT 97; BMI 39.2
--- OUTSIDE RECORDS SUMMARY | 2024-05-17 12:22 | XMS_ITS | Clinical Summary ---
Author Organization [facility] Address [address] [place] [address] Phone Care Team Providers Care Obstetrics Scrub Nurse Name Role Phone Joel Collado MD Primary Care Provider [phone] Allergies Active Allergy Reactions Criticality Noted Date Comments Umeclidinium Worth 12/17/2016 Throat tightness Medications topiramate (TOPAMAX) 100 mg tablet Take 1 tablet (100 mg total) by mouth. 11/24/19 23 Active Breztri Aerosphere 160-9-4.8 mcg/actuation HFA aerosol inhaler inhaler Inhale 2 puffs by mouth 1 (one) time each day. 06/03/19 23 Active diclofenac (VOLTAREN) 1 % topical gel Apply 4 g topically 2 (two) times a day. 03/25/19 24 Active butalbital-ngoc taminophen-caf feine 50-300-40 mg capsule Take 1 capsule by mouth 1 (one) time each day. 06/30/19 23 Active clobetasoL (TEMOVATE) 0.05 % cream Apply to area for a week then as needed for itching 02/26/19 24 Active rosuvastatin (CRESTOR) 40 mg tablet Take 1 tablet (40 mg total) by mouth 1 (one) time each day. 01/06/20 23 Active aspirin 81 mg EC tablet Take 1 tablet (81 mg total) by mouth 1 (one) time each day. 11/21/20 23 Active amLODIPine (NORVASC) 10 mg tablet Take 1 tablet (10 mg total) by mouth 1 (one) time each day. 01/06/20 Active buPROPion SR (WELLBUTRIN SR) 100 mg 12 hr tablet Take 1 tablet (100 mg total) by mouth 2 (two) times a day. 01/29/20 Active citalopram (CeleXA) 20 mg tablet Take 1 tablet (20 mg total) by mouth 1 (one) time each day. 12/25/19 Active nortriptyline (PAMELOR) 50 mg capsule Take 1 capsule (50 mg total) by mouth at bedtime. 02/14/20 Active loratadine (CLARITIN) 10 mg tablet Take 1 tablet (10 mg total) by mouth 1 (one) time each day. 07/28/19 Active freestyle (Prodigy Lancets) 28 gauge lancets 1 Units by Not Applicable route. 09/03/19 Active blood-glucose meter [facility] [place] 05/08/19 Active isopropyl alcohol-benzoc wong 70-6 % pads, medicated 1 Device by Not Applicable route. 10/25/19 Active albuterol 2.5 mg /3 mL (0.083 %) nebulizer solution Take 1 Vial by nebulization every 4 hours as needed for Wheezing, Shortness of Breath or Cough. Active blood-glucose meter kit Blood Glucose Monitoring Suppl (ONE TOUCH ULTRA 2) w/Device Kit Use to check blood sugar once a day Active citalopram (CeleXA) 20 mg tablet Active estradioL (ESTRACE) 0.01 % (0.1 mg/gram) vaginal cream Use 1-2 grams weekly vaginally Active gabapentin (NEURONTIN) 100 mg capsule Take 3 Capsules by mouth at bedtime. Active incontinence pad, liner, disp pad Incontinence Supply Disposable (Depend Pant Extra Large) [facility] [place] Depends silhouette L-XL ??Use 2-3 times daily for Incontinence Indefinite Use Active LORazepam (ATIVAN) 0.5 mg tablet Take 1 tablet (0.5 mg total) by mouth every 6 (six) hours if needed for anxiety. Active rimegepant (Nurtec) 75 mg dispersible tablet Active OneTouch UltraSoft Lancets Use one lancet to check blood sugar once a day Active OneTouch Ultra Test test strip USE TO TEST BLOOD SUGAR TWICE DAILY. Active rOPINIRole (REQUIP) 0.25 mg tablet Take 2 Tablets by mouth 3 times daily. Active predniSONE (DELTASONE) 20 mg tablet Take 3 tablets daily x 3 days, then 2 tablets daily x 3 days then 1 tablet daily x 3 days 18 tablet 01/17/20 24 Active Ventolin HFA 90 mcg/actuation inhaler INHALE 2 PUFFS BY MOUTH FOUR TIMES A DAY NEEDED FOR WHEEZING OR SHORTNESS OF BREATH 18 g 3 02/15/19 25 026 Active alendronate (FOSAMAX) 70 mg tablet TAKE 1 TABLET BY MOUTH EVERY 7 DAYS ON AN EMPTY STOMACH WITH 8 OUNCES OF WATER. NO FOOD/DRINK FOR 30 MINUTES AFTER.TAKE 1 TABLET BY MOUTH EVERY 7 DAYS ON AN EMPTY STOMACH WITH 8 OUNCES OF WATER. NO FOOD/DRINK FOR 30 MINUTES AFTER. 4 tablet 1 03/21/19 25 Active hydrALAZINE (APRESOLINE) 10 mg tablet Take 1 tablet (10 mg total) by mouth 2 (two) times a day. 28 tablet 1 03/21/19 25 Active omeprazole (PriLOSEC) [address] capsule Take 2 capsules (40 mg total) by mouth 1 (one) time each day. 28 capsule 1 03/21/19 25 Active Vitamin D3 25 mcg (1,000 unit) capsule TAKE 1 CAPSULE BY MOUTH DAILY 28 capsule 5 03/21/19 25 Active hydrALAZINE (APRESOLINE) 10 mg tablet TAKE 1 TABLET BY MOUTH TWICE A DAY 56 tablet 5 03/21/19 25 Active omeprazole (PriLOSEC) [address] capsule TAKE 2 CAPSULES BY MOUTH DAILY 56 capsule 5 03/21/19 25 Active lancets (Execution LabsTouch Delica Plus Lancet) 30 gauge USE TO TEST BLOOD SUGAR TWICE A DAY 100 each 03/21/19 25 Active alendronate (FOSAMAX) 70 mg tablet TAKE 1 TABLET BY MOUTH EVERY 7 DAYS ON AN EMPTY STOMACH WITH 8 OUNCES OF WATER. NO FOOD/DRINK FOR 30 MINUTES AFTER.TAKE 1 TABLET BY MOUTH EVERY 7 DAYS ON AN EMPTY STOMACH WITH 8 OUNCES OF WATER. NO FOOD/DRINK FOR 30 MINUTES AFTER. 4 tablet 1 03/21/19 25 Active losartan (COZAAR) 100 mg tablet TAKE 1 TABLET BY MOUTH DAILY 90 tablet 1 04/11/19 25 Active metFORMIN (GLUCOPHAGE) 500 mg tablet TAKE 1 TABLET BY MOUTH EVERY MORNING 90 tablet 1 04/11/19 25 Active docusate sodium (COLACE) 100 mg capsule TAKE 1 CAPSULE BY MOUTH TWICE A DAY 56 capsule 2 05/11/19 25 Active docusate sodium (COLACE) 100 mg capsule Take 1 Capsule by mouth 2 times daily as needed for Constipation. 025 Discontinued Active Problems Problem Noted Date Diagnosed Date Moderate obstructive sleep apnea 11/25/2023 Primary osteoarthritis of left knee 06/07/2023 Primary osteoarthritis of right knee 06/07/2023 Morbid obesity with BMI of 40.0-44.9, adult 03/18 Morbid obesity 04/05/2023 Tension headache 03/18/2023 Type 2 diabetes mellitus, co ntrolled, with renal complications 05/20/2021 Chronic foot pain, right 06/18/2020 Stage 3a chronic kidney disease 12/04/2019 TIA (transient ischemic attack) 04/17/2019 Overview (04/05/2023): Left facial numbness, arm weakness 04/06 Left shoulder tendinitis 12/02/2018 Cervical spondylosis without myelopathy 10/22/19 Rotator cuff tendinitis, left 10/21/2018 Pulmonary nodules 08/26/2018 Chronic obstructive pulmonary disease 08/25/2017 IBS (irritable bowel syndrome) 06/17/2017 MARINO and COPD overlap syndrome 01/21/2017 Overview (04/05/2023): NOT TREATED (April 2019) [facility] Polysomnogram: Date 01/16/2017; Wt 204# SE 78%; SM 94%; REM 23%; RDI 34 (AHI 32), worse in REM (RDI 51- AHI 46), Central apneas 23; Obstructive apneas 86; Mixed apneas 1; hypopneas 109; RERAs 17; average oxygen saturation 895% (lowest 80% - without saturations <88% for 5% or more of study); PLMs 3. [facility] Polysomnogram treatment study. Date 03/29/2017 . SE 87 % SM 88 %; spent 23 % of the study in REM. At the optimal pressure of CPAP @ 9; RDI 1.2 (AHI 1.2), Central apneas 2; Obstructive apneas 0; Mixed apneas 0; hypopneas 0; RERAs 0; and, average oxygen saturation was 94%. For the entire study, PLMs ~5. [facility] Home Sleep Apnea Test: Date 08/11/2019; BMI 24; RDI 19, AHI 19; average oxygen saturation 95% (lowest 70% without saturations <88% for 5% or more of study) SMS treatment polysomnogram 05/03/2021; weight 217; BMI 40. Recommendations CPAP set at 10 with heated humidification and/or mask/interface fitting as recommended with close follow-up and monitoring; alternative options include O AT, ENT procedure; weight loss. - Obstructive sleep apnea - severe; mostly hypopneas and obstructive apneas; without sleep related hypoxia by 2016 diagnostic polysomnogram. CPAP study 2017 showed good control of AHI. - Obstructive Sleep Apnea - moderate; without sleep related hypoventilation by 2019 home sleep apnea test. Obstructive sleep apnea 01/21/2017 Overview (11/25/2023): [facility] treatment Polysomnogram: Date 01/21/2023; Wt 220#; BMI 40.24; SE 92%; SM 94%; REM 13%; CPAP @6 10- 12 cm: AHI 3, REM AHI 2, Central apneas 9; Obstructive apneas 0; Mixed apneas 0; hypopneas 13; average oxygen saturation 94% (lowest 88%); PL~11 [facility] Home Sleep Apnea Test: Date 08/11/2019; BMI 24 ; AHI 19; average oxygen saturation 95% (lowest 70% with saturations <88% for 5% or more of study) - Obstructive Sleep Apnea - moderate; with sleep related hypoventilation by 2019 home sleep apnea test. Last Assessment & Plan: Life supply CPAP 4 to 11 cm changed to CPAP 12 Thoracic degenerative disc disease 01/17/2016 Esophageal dysmotility 12/27/2015 Fibromyalgia 07/11/2015 PTSD (post-traumatic stress disorder) 07/11/2015 Tremor 06/12/2015 Overview (04/05/2023): Follows with neurology (jailene) GERD (gastroesophageal reflux disease) 5 Anxiety 02/28/2014 Depression, major, in partial remission 02/28/19 15 HTN (hypertension), benign 02/28/2014 Hyperlipidemia 02/28/2014 OAB (overactive bladder) 02/28/2014 Osteoporosis 02/28/2014 Overview (04/05/2023): 08/30 T score spine -1.3 hip -1.1 FRAX score 9.8% 10 year fracture risk 03/06 T score spine -1.7 hip -1.0 FRAX score 20% 10 year fracture risk Encounters Date Type Department Care Team Description 04/27/2024 Telephone [facility] [address] [place] [address] Joel Collado MD Request For Order(s) ([facility]) 02/21/2024 Telephone Internal [facility] [place] [address] [facility] [place] [address] Joel Collado MD Nausea from Last 3 Months Immunizations Name Administration Dates Next Due Influenza Quadravalent, MDCK , 0.5ml, preservative free (Flucelvax) 6mo and older 11/04/2017 Influenza Quadravalent, MDCK , 0.5ml, with preservative (Flucelvax) 6mo and older 12/17/2016 Influenza trivalent, 0.5mL ( Fluzone High-dose) 65yo and older 11/03/2022 Influenza trivalent, 0.5mL, preservative free (Fluarix; FluLaval; Fluzone) ages 6mo and older (Afluria) 3 years and older 12/06/2015 Influenza trivalent, with pr eservative (Fluzone; Afluria) 6mo and older 12/19/2020,12/07/2019,12/27/2013,02/15 Influenza, live, intranasal, quadrivalent (FluMist) 2yo to less than 50yo 11/26/2021 Moderna SARS-CoV-2 COVID-19, mRNA, LNP-S, preservative free 02/13/2021 Pneumococcal conjugate 20 va lent (Prevnar 20, PCV 20) 2mo and older 11/03/2022 Pneumococcal polysaccharide 23 valent (Pneumovax 23) 2yo and older 04/24/2012 Td Tetanus diptheria (Tdvax) 7yo and older 02/15/2005 Tdap Tetanus diptheria acell ular pertussis (Boostrix; Adacel) 7yo and older 06/26/2022,06/12/2015 Zoster recombinant (Shingrix ) 19yo and older 12/30/2018,09/23/2018 Surgical History Surgery Date Site/Laterality Comments APPENDECTOMY PROCEDURE: HISTORICAL APPENDECTOMY OTHER SURGICAL HISTORY 20 years ago PROCEDURE: HISTORICAL TOTAL HYSTERECTOMY W/O BSO; COMMENT: for bleeding CARPAL TUNNEL RELEASE Bilateral PROCEDURE: HISTORICAL CARPAL TUNNEL REL ROTATOR CUFF REPAIR 03/12/2015 Right PROCEDURE: HISTORICAL ROTATOR CUFF REPAIR; COMMENT: Dr. Declan Haynes OTHER SURGICAL HISTORY 03/12/2015 Right PROCEDURE: [place] PARTIAL EXCISION BONE CLAVICLE; COMMENT: Dr. Declan Haynes (distal clavical excision) TUBAL LIGATION PROCEDURE: HISTORICAL TUBAL LIGATION; COMMENT: and tubal BLADDER SURGERY 09/2015 PROCEDURE: HISTORICAL BLADDER SURGERY; COMMENT: bladder sling; Dr. Brannon OTHER SURGICAL HISTORY 08/2018 PROCEDURE: MAMMOGRAM Medical History Medical History Date Comments Diabetes ([facility]) DX:Diabetes ( [facility]) Hypertension DX:Hypertension Hyperlipemia DX:Hyperlipemia Obesity DX:Obesity Depression DX:Depression GERD (gastroesophageal reflux disease) DX:GERD (gastroesophageal reflux disease) Fibromyalgia 07/11/2015 DX:Fibromyalgia PTSD (post-traumatic stress disorder) 07/11/2015 DX:PTSD (post-traumatic stress disorder) TIA (transient ischemic attack) 04/17/2019 DX:TIA (transient ischemic attack); COMMENT: Left facial numbness, arm weakness 04/06 Type 2 diabetes mellitus, co ntrolled, with renal complications ([facility]) 05/20/2021 DX:Type 2 diabetes mellitus, controlled, with renal complications ([facility]) COVID-19 virus infection 11/07/2021 DX:COVI D-19 virus infection Right rotator cuff tear 01/21/2016 DX:Right rotator cuff tear; COMMENT: Partial tear s/p repair 03/12/[address] Declan Haynes Family History Medical History Relation Name Comments Lung cancer Brother esophageal canc er Alcohol abuse Daughter Emphysema Father MD, prostate ca ncer Breast cancer Mother Dementia Mother hypertension, b reast cancer, cervical cancer Lung cancer Sister also lymphoma Relation Name Status Comments Brother Daughter Father Mother Sister Social History Tobacco Use Types Packs/Day Years Used Date Smoking Tobacco: Former Cigarettes Q uit: 02/04/2016 Smokeless Tobacco: Never Alcohol Use Standard Drinks/Week Comments Yes 0 (1 standard drink = 0.6 oz pur e alcohol) Comments No Sex and Gender Information Value Date Recorded Sex Assigned at Not on file Legal Sex Female 5:19 PM EST Gender Identity Not on file Sexual Orientation Not on file Obstetrics History Last Filed Vital Signs Vital Sign Reading Time Taken Comments Blood Pressure 136/82 01/17/2024 11:48 AM EST Pulse 111 01/17/2024 11:27 AM EST Temperature 35.6 ??C (96 ??F) 01/05/2024 9:06 AM EST Respiratory Rate 16 01/05/2024 9:06 AM EST Oxygen Saturation 95% 01/17/2024 11:27 AM EST Inhaled Oxygen Concentration - - Weight 100 kg (220 lb 6.4 oz) 01/17/2024 11:27 A M EST Height 157.5 cm (5' 2 ) 01/17/2024 11:27 AM EST Body Mass Index 40.31 01/17/2024 11:27 AM EST Plan of Treatment Upcoming Encounters Date Type Department Care Team (Late st Contact Info) Description 05/25/2024 9:00 AM EDT Office Visit Internal Medicine [address] [phone] Joel Collado MD [address] [place] [address] 07/04/2024 9:10 AM EDT Office Visit Pulmonolgy - [place] [address] [place] [phone] Jacqui Cuellar NP [address] [place] [address] 08/21/2024 10:30 AM EDT Consult Bariatric Surgery - [place] [address] [facility] [address] [place] [address] Melanie Olivares PA [address] [place] [address] 10/13/2024 10:30 AM EDT Appointment Radiology Department - [address] [phone] Health Maintenance Due Date Last Done Comments Diabetes: Annual Foot Exam 09/28/1967 Diabetes: Annual Retina Eye Exam 09/28/1967 RSV Immunization Adult Patients (1 - Risk 60-74 years 1-dose series) 2017 Social Influencers of Health Screening 01/24/2022 COVID-19 Vaccine ( season) 2023 07/03/2021, 02/13/2021, 05/30/2020, Additional history exists Diabetes: Annual Urine Albumin-Creatinine Ratio (uACR) 11/04/2023 11/03/2022 Depression Screening 02/17/2024 02/16/2023 Falls Risk Assessment 02/17/2024 02/16/2023 Medicare Annual Wellness Visit 02/17/2024 02/16/2023 Diabetes: Blood Sugar Control Test (HGBA1C) 05/25/2024 11/25/2023, 02/16/2023 Diabetes: Annual GFR (Glomerular Filtration Rate) 11/24/2024 11/25/2023, 06/17/2023, 06/17/2023 Hypertension/CHF/CAD Annual BMP Blood Test 11/24/2024 11/25/2023, 06/17/2023, 06/17/2023 Breast Cancer Screening 10/06/2025 10/07/19 24, 10/07/2023, 09/22/2022, Additional history exists Cholesterol Screening (Lipid Panel) 11/24/2028 11/25/2023, 11/03/2022 Colorectal Cancer Screening: Colonoscopy 01/07/2032 01/06/2022 DTaP,Tdap,and Td Vaccines (4 - Td or Tdap) 06/26/2032 06/26/2022, 06/12/2015, 02/15/2005 Osteoporosis Screening (Bone Density Screening) 01/15/2033 01/15/2023, 02/20/2019 Hepatitis C Screening Completed 05/22/2016 Zoster Vaccines Completed 12/30/2018, 09/23/2018 Pneumococcal Vaccine: 50+ Years Completed 11/03/2022, 04/24/2012 Influenza Vaccine Completed 11/25/2023, , 11/26/2021, Additional history exists HIB Vaccines Aged Out No longer eligi ble based on patient's age to complete this topic HPV Vaccines Aged Out No longer eligi ble based on patient's age to complete this topic Hepatitis A Vaccines Aged Out No long er eligible based on patient's age to complete this topic Hepatitis B Vaccines Aged Out No long er eligible based on patient's age to complete this topic IPV Vaccines Aged Out No longer eligi ble based on patient's age to complete this topic MMR Vaccines Aged Out No longer eligi ble based on patient's age to complete this topic Meningococcal ACWY Vaccine Aged Out N o longer eligible based on patient's age to complete this topic Meningococcal B Vacine Aged Out No lo nger eligible based on patient's age to complete this topic RSV Immunization Patients Under 20 months Aged Out No longer eligible based on patient's age to complete this topic Varicella Vaccines Aged Out No longer eligible based on patient's age to complete this topic Procedures Procedure Name Priority Date/Time Associated Diagnosis Comments SCREENING MAMMOGRAPHY BI 2-VIEW BREAST INC CAD Routine 10/07/2023 2:09 PM EDT Encounter for screening mammogram for malignant neoplasm of breast ANNUAL BMP BLOOD TEST Routine 06/17/2023 DEPRESSION SCREENING Routine 02/16/2023 FALLS RISK ASSESSMENT Routine 02/16/2023 HEMOGLOBIN A1C Routine 02/16/2023 DXA BONE DENSITY STUDY 1+ SITS AXIAL SKEL Routine 01/15/2023 8:31 AM EST Age-related osteoporosis without current pathological fracture URINE ALBUMIN CREATININE RATIO Routine 11/03/2022 LIPID PANEL Routine 11/03/2022 COLONOSCOPY Routine 01/06/2022 HEPATITIS C SCREENING Routine 05/22/2016 from Last 3 Months or Most Recently Relevant to Health Maintenance Results * SCREENING MAMMOGRAPHY BI 2-VIEW BREAST INC CAD (10/07/2023 2:09 PM EDT) Anatomical Region Laterality Modality Radiographic Katerin ging 09/22/2022 8:47 AM EDT Narrative 10/08/2023 10:14 AM EDT This is a summary report. The complete report is available in the patient's medical record. If you cannot access the medical record, please contact the sending organization for a detailed fax or copy. Full field digital screening 2D C views and 3D tomosynthesis mammography, reviewed with CAD and compared to previous. The breast tissue is heterogeneously dense, limiting sensitivity. No suspicious mass, architectural distortion or suspicious calcifications are identified. IMPRESSION: : Dense breast tissue, limiting the sensitivity of mammography. No mammographic evidence of malignancy. BIRADS 1-Negative; N. 5 year breast cancer risk assessment 3.1 % Lifetime breast cancer risk assessment 11.0 % Breast cancer risk category Low (<15%) Procedure Note Aishwarya Guaman MD - 12/01/2023 This is a summary report. The complete report is available in thepatient's medical record. If you cannot access the medical record, pleasecontact the sending organization for a detailed fax or copy. Full field digital screening 2D C views and 3D tomosynthesis mammography,reviewed with CAD and compared to previous. The breast tissue isheterogeneously dense, limiting sensitivity. No suspicious mass,architectural distortion or suspicious calcifications are identified. IMPRESSION: : Dense breast tissue, limiting the sensitivity of mammography. Nomammographic evidence of malignancy. BIRADS 1-Negative; N. 5 year breast cancer risk assessment 3.1 % Lifetime breast cancer risk assessment 11.0 % Breast cancer risk category Low (<15%) Jennifer Camacho NP IMG XR PROCEDURES Final Result * Annual BMP Blood Test (06/17/2023) Pathologist [facility] Annual BMP Blood Test abstracted Result [facility] Provider [place] HEALTH MAINTENANCE Final Result * Falls Risk Assessment (02/16/2023) [facility] Falls Risk Assessment abstracted Result [facility] HEALTH MAINTENANCE Final Result * Depression Screening (02/16/2023) [facility] Depression Screening abstracted Result [facility] HEALTH MAINTENANCE Final Result * Hemoglobin A1c (02/16/2023) [facility] Hemoglobin A1C 6.4 <=6.5 % Blood Venous blood specimen / Unknown Result [facility] LAB BLOOD ORDERABLES Kerline l Result * DXA BONE DENSITY STUDY 1+ SITS AXIAL SKEL (01/15/2023 8:31 AM EST) Anatomical Region Laterality Modality Bone Densitometr y 11/03/2022 8:44 AM EDT Narrative 01/16/2023 5:13 PM EST BONE DENSITY ? Lumbar Spine T-score is -0.5 ?? (SD relative to 20-29 y/o adult) Z-score is +1.3 ??(SD relative to age matched peers) This is normal by criteria defined by the WHO. Left Hip T-score is -1.2 Z-score is +0.3 This is consistent with osteopenia by criteria defined by the WHO. Impression: Based on the World Health Organization criteria, Maria Luisa Mukherjee should be classified as having osteopenia. This patient has a 22% risk of major osteoporotic fracture and a 11% risk of hip fracture over the next 10 years. (World Health Organization Fracture Risk Assessment) [facility] Department of Internal Medicine recommends using National Osteoporosis Foundation (NOF) guidelines in treatment decisions related to osteoporosis. NOF guidelines suggest considering treatment for postmenopausal women and men aged 50 or older presenting with the following: History of hip or vertebral fracture. T-score less than or equal to -2.5 (DXA) at the femoral neck, total hip, or spine, after appropriate evaluation to exclude secondary causes. Low bone mass (T-score between -1.0 and -2.5 at the femoral neck or spine) AND a 10-year probability of a hip fracture greater than or equal to 3% OR a 10-year probability of a major osteoporosis-related fracture greater than or equal to 20% based on the [place]-adapted WHO algorithm Please note that all treatment decisions require clinical judgment and consideration of individual patient factors, including patient preferences, co-morbidities, previous drug use, risk factors not captured in the FRAX model (e.g., frailty, falls, vitamin D deficiency, increased bone turnover, interval significant decline in bone density) and possible under- or over-estimation of fracture risk by FRAX. Procedure Note Aishwarya Guaman MD - 03/23/2023 BONE DENSITY Lumbar Spine T-score is -0.5 (SD relative to 20-29 y/o adult) Z-score is +1.3 (SD relative to age matched peers) This is normal by criteria defined by the WHO. Left Hip T-score is -1.2 Z-score is +0.3 This is consistent with osteopenia by criteria defined by the WHO. Impression: Based on the World Health Organization criteria, Maria Luisa Mukherjee should beclassified as having osteopenia. This patient has a 22% risk of majorosteoporotic fracture and a 11% risk of hip fracture over the next 10years. (World Health Organization Fracture Risk Assessment) [facility] Department of Internal Medicine recommendsusing National Osteoporosis Foundation (NOF) guidelines in treatmentdecisions related to osteoporosis. NOF guidelines suggest consideringtreatment for postmenopausal women and men aged 50 or older presentingwith the following: History of hip or vertebral fracture. T-score less than or equal to -2.5 (DXA) at the femoral neck, total hip,or spine, after appropriate evaluation to exclude secondary causes. Low bone mass (T-score between -1.0 and -2.5 at the femoral neck or spine)AND a 10-year probability of a hip fracture greater than or equal to 3% ORa 10-year probability of a major osteoporosis-related fracture greaterthan or equal to 20% based on the [place]-adapted WHO algorithm Please note that all treatment decisions require clinical judgment andconsideration of individual patient factors, including patientpreferences, co-morbidities, previous drug use, risk factors not capturedin the FRAX model (e.g., frailty, falls, vitamin D deficiency, increasedbone turnover, interval significant decline in bone density) and possibleunder- or over-estimation of fracture risk by FRAX. Joann Wei NP IMG DXA PROCEDURES Fin al Result * Urine Albumin Creatinine Ratio (11/03/2022) [facility] Urine Albumin Creatinine Ratio abstracted Result [facility] Provider HEALTH MAINTENANCE Final Result * Lipid panel (11/03/2022) [facility] LDL/HDL Ratio 2 0 - 4 Triglycerides 106 0 - 150 mg/dL Cholesterol 117 0 - 200 mg/dL HDL 73 >=40 mg/dL LDL Cholesterol 23 0 - 100 mg/dL Blood Venous blood specimen / Unknown Result [facility] Provider LAB BLOOD ORDERABLES Kerline l Result * Colonoscopy (01/06/2022) [facility] Colonoscopy no interpretation , abstracted Anatomical Region Laterality Modality Other Result [facility] Provider HEALTH MAINTENANCE Final Result * Hepatitis C Screening (05/22/2016) [facility] Hepatitis C Screening abstacted Result [facility] Provider HEALTH MAINTENANCE Final Result from Last 3 Months or Most Recently Relevant to Health Maintenance [place] Care Teams Obstetrics Scrub Nurse Relationship Specialty Start Date End Date Joel Collado MD [address] [place] [address] PCP - General Internal Medicine 12/12/19
== END 2024-05-17 11:18 | disposition home or self-care (01) ==
LOC: HO.RHES 10:31
PROVIDERS: PCP Internal Medicine; Visit Provider Internal Medicine Rheumatology
DX: M19.041 Primary osteoarthritis, right hand (principal); M19.042 Primary osteoarthritis, left hand
CPT/HCPCS: 99204

== ENCOUNTER 2024-05-17 10:30 | Outpatient (REF) | payer MEDICARE, SELFPAY ==
--- OUTSIDE RECORDS SUMMARY | 2024-05-17 13:50 | XMS_ITS | Clinical Summary ---
Author Organization [address] [facility] Address [address] [place] [address] Phone Care Team Providers Care Revenue Settlements Administrator Name Role Phone Joel Collado MD Primary Care Provider [phone] Allergies Active Allergy Reactions Criticality Noted Date Comments Umeclidinium [place] 12/17/2016 Throat tightness Medications topiramate (TOPAMAX) 100 [...] Not Applicable route. 09/03/19 Active blood-glucose meter [facility] 05/08/19 Active isopropyl alcohol-benzoc wong 70-6 % [...] Incontinence Supply Disposable (Depend Pant Extra Large) [facility] Depends silhouette L-XL ??Use 2-3 times daily [...] 56 capsule 5 03/21/19 25 Active lancets (Ohio State UniversityTouch Delica Plus Lancet) 30 gauge USE TO [...] 94%. For the entire study, PLMs ~5. [facility] Home Sleep Apnea Test: Date 08/11/2019; BMI [...] test. Obstructive sleep apnea 01/21/2017 Overview (11/25/2023): [facility] treatment Polysomnogram: Date 01/21/2023; Wt 220#; BMI 40.24; SE 92%; SM 94%; REM 13%; CPAP @6 10- 12 cm: AHI 3, REM AHI 2, Central apneas 9; Obstructive apneas 0; Mixed apneas 0; hypopneas 13; average oxygen saturation 94% (lowest 88%); PL~11 [facility] Home Sleep Apnea Test: Date 08/11/2019; BMI [...] 04/27/2024 Telephone Internal Medicine - [place] [address] [facility] [place] [address] Joel Collado MD Request For Order(s) ([facility]) 02/21/2024 Telephone Internal Medicine - [place] [address] [facility] [place] [address] Joel Collado MD Nausea from [...] Hay[place] OTHER SURGICAL HISTORY 03/12/2015 Right PROCEDURE: VA PARTIAL EXCISION BONE CLAVICLE; COMMENT: Dr. Declan Haynes (distal clavical excision) TUBAL LIGATION PROCEDURE: HISTORICAL TUBAL LIGATION; COMMENT: and tubal BLADDER SURGERY 09/2015 PROCEDURE: HISTORICAL BLADDER SURGERY; COMMENT: bladder sling; Dr. Brannon OTHER SURGICAL HISTORY 08/2018 PROCEDURE: MAMMOGRAM Medical History Medical History Date Comments Diabetes ([facility]) DX:Diabetes ( [facility]) Hypertension DX:Hypertension Hyperlipemia DX:Hyperlipemia Obesity DX:Obesity Depression DX:Depression GERD (gastroesophageal reflux disease) DX:GERD (gastroesophageal reflux disease) Fibromyalgia 07/11/2015 DX:Fibromyalgia PTSD (post-traumatic stress disorder) 07/11/2015 DX:PTSD (post-traumatic stress disorder) TIA (transient ischemic attack) 04/17/2019 DX:TIA (transient ischemic attack); COMMENT: Left facial numbness, arm weakness 04/06 Type 2 diabetes mellitus, co ntrolled, with renal complications ([facility]) 05/20/2021 DX:Type 2 diabetes mellitus, controlled, with renal complications ([facility]) COVID-19 virus infection 11/07/2021 DX:COVI D-19 virus infection Right rotator cuff tear 01/21/2016 DX:Right rotator cuff tear; COMMENT: Partial tear s/p repair 03/12/[address] Declan Haynes Family History Medical History Relation Name Comments Lung cancer Brother esophageal canc er Alcohol abuse Daughter Emphysema Father [place], prostate ca ncer Breast cancer Mother Dementia [...] 9:00 AM EDT Office Visit Internal Medicine [address] [phone] Joel Collado MD [address] [place] [address] 07/04/2024 9:10 AM EDT Office Visit Pulmonolgy - [place] [address] [place] [phone] Jacqui Cuellar NP [address] [place] [address] 08/21/2024 10:30 AM EDT Consult Bariatric Surgery - [place] [address] [facility] [address] [place] [address] Melanie Olivares PA [address] [place] [address] 10/13/2024 10:30 AM EDT Appointment Radiology Department - [address] [phone] Health Maintenance Due Date Last Done Comments [...] BMP Blood Test (06/17/2023) Pathologist [facility] Annual BMP Blood Test abstracted Result [facility] Provider AL HEALTH MAINTENANCE Final Result * Falls Risk Assessment (02/16/2023) [facility] Falls Risk Assessment abstracted Result [facility] HEALTH MAINTENANCE Final Result * Depression Screening (02/16/2023) [facility] Depression Screening abstracted Result [facility] HEALTH MAINTENANCE Final Result * Hemoglobin A1c (02/16/2023) [facility] Hemoglobin A1C 6.4 <=6.5 % Blood Venous blood specimen / Unknown Result [facility] LAB BLOOD ORDERABLES Kerline l Result [...] (World Health Organization Fracture Risk Assessment) [facility] Department of Internal Medicine recommends [...] (World Health Organization Fracture Risk Assessment) [facility] Department of Internal Medicine recommendsusing [...] Result * Urine Albumin Creatinine Ratio (11/03/2022) [facility] Urine Albumin Creatinine Ratio abstracted Result [facility] Provider HEALTH MAINTENANCE Final Result * Lipid panel (11/03/2022) [facility] LDL/HDL Ratio 2 0 - 4 Triglycerides 106 0 - 150 mg/dL Cholesterol 117 0 - 200 mg/dL HDL 73 >=40 mg/dL LDL Cholesterol 23 0 - 100 mg/dL Blood Venous blood specimen / Unknown Result [facility] Provider LAB BLOOD ORDERABLES Kerline l Result * Colonoscopy (01/06/2022) [facility] Colonoscopy no interpretation , abstracted Anatomical Region Laterality Modality Other Result [facility] Provider HEALTH MAINTENANCE Final Result * Hepatitis C Screening (05/22/2016) [facility] Hepatitis C Screening abstacted Result [facility] Provider HEALTH MAINTENANCE Final Result from Last 3 Months or Most Recently Relevant to Health Maintenance [place] Care Teams Revenue Settlements Administrator Relationship Specialty Start Date End Date Joel Collado MD [address] [place] [address] PCP - General Internal Medicine 12/12/19
[2024-05-17 18:40] LABS: Alanine Aminotransferase 7 U/L (0-31); Aspartate Amino Transferase 16 U/L (5-31); Estimated Glomerular Filt Rate > 60
== END 2024-05-17 10:31 | disposition home or self-care (01) ==
LOC: HO.HKASLDS 10:30
PROVIDERS: PCP Internal Medicine; Visit Provider Internal Medicine Rheumatology
DX: Z13.89 Encounter for screening for other disorder (principal)
CPT/HCPCS: 36415; 82565; 84450; 84460

== ENCOUNTER 2024-05-17 11:54 | Outpatient (REF) | payer MEDICARE, SELFPAY ==
--- NOTE | ~2024-05-17 | XR_ITS ---
EXAMINATION: XR HAND/WRIST, RIGHT XR HAND/WRIST, LEFT CLINICAL INFORMATION: M19.041 - Primary osteoarthritis, right hand COMPARISON: None TECHNIQUE: PA, oblique, and Norgaard views of the each hand and wrist. FINDINGS: RIGHT HAND/WRIST: No fracture, dislocation, or suspicious bone lesion. Normal alignment. There are DIP joint arthritic changes with central erosion and marginal productive bony changes, in keeping with primary erosive osteoarthritis. There are severe changes in the second and third digits, with lesser changes in the fourth and fifth digits. Mild ulnar deviation of the second DIP joint. Mild changes in the interphalangeal joint of the thumb, and first MCP joint. There is otherwise relative preservation of the MCPs and PIPs. The carpal bones are normally aligned. Mild blunting of the lumbar styloid noted. Mild negative ulnar variance. Mild radiocarpal joint space narrowing and mild degenerative arthritis in the first CMC joint. No soft tissue abnormalities. LEFT HAND/WRIST: No fracture, dislocation, or suspicious bone lesion. Normal alignment. There are DIP joint arthritic changes with central erosion and marginal productive bony changes, in keeping with primary erosive osteoarthritis. There are severe changes in the second and third digits, with lesser changes in the fourth and fifth digits. Mild ulnar deviation of the second DIP joint. Mild changes in the interphalangeal joint of the thumb, and first MCP joint. There is otherwise relative preservation of the MCPs and PIPs. The carpal bones are normally aligned. Mild negative ulnar variance. Mild radiocarpal joint space narrowing and mild degenerative arthritis in the first CMC joint. No soft tissue abnormalities. XR/XR Hand Bilat min 3v IMPRESSION: 1. 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 2. Additional less severe arthritic findings as discussed. Electronically signed by: Demond Smith MD 05/18/2024 09:44 AM EDT
--- OUTSIDE RECORDS SUMMARY | 2024-05-17 14:26 | XMS_ITS | Encounter Summary ---
Author Organization [facility] Address [address] [place] [address] Care Team Providers Care Emergency Management Specialist Name Role Phone Carmen Skelton MD Primary Care Provider [phone] Joel Collado MD Primary Care Provider [phone] Ratna Brannon MD Unavailable Unavailable Reason for Visit * Reason Onset Date Comments Faxed Order 11/01/2019 Encounter Details Date Type Department Care Team Description 11/01/2019 Telephone Adult Medicine [facility] [address] [place] [address] [phone] Carmen Skelton MD [address] [place] [address] [phone] Faxed Order Social History Tobacco Use Types Packs/Day Years Used Date Smoking Tobacco: Former Cigarettes Q uit: 02/04/2016 Smokeless Tobacco: Never Alcohol Use Standard Drinks/Week Comments Yes 0 (1 standard drink = 0.6 oz pure alcohol) history alcohol abuse; occasionally Sex Assigned at Date Recorded Female 03/16/2023 7:[address] Job Start Date Occupation Industry Not on file Not on file Not on file documented as of this encounter Miscellaneous Notes * Telephone Encounter - Rhona Mcmullen - 11/01/2019 3:03 PM EDT Face to face encounter, for Dr. Carmen Skelton's signature documented in this encounter Plan of Treatment Not on file documented as of this encounter Visit Diagnoses Not on filedocumented in this encounter Care Teams Emergency Management Specialist Relationship Specialty Start Date End Date Carmen Skelton MD [address] [place] [address] PCP - General Internal Medicine 05/30/15 12/11/19 Joel Collado MD [address] [place] [address] PCP - General Internal Medicine 12/12/19 Ratna Brannon MD [address] [place] [address] Obstetrics/Gynecology 11/03/22 documented as of this encounter
--- OUTSIDE RECORDS SUMMARY | 2024-05-17 14:26 | XMS_ITS | Encounter Summary ---
Author Organization [facility] Address [address] [place] [address] Care Team Providers Care Educational Fundraising Director Name Role Phone Joel Collado MD Primary Care Provider [phone] Ratna Brannon MD Unavailable Unavailable Reason for Visit * Reason Onset Date Comments APPOINTMENT 11/26/2020 Encounter Details Date Type Department Care Team Description 11/26/2020 Telephone Pulmonology - [place] [address] [facility] [address] [place] [phone] Carie Nance, DEBUBBLIZER [address] [place] [address] APPOINTMENT Social History Tobacco Use Types Packs/Day Years [...] encounter Miscellaneous Notes * Telephone Encounter - Hayley Buck - 11/26/2020 4:40 PM EDT 11/26/20 Left mesaage for patient to call to scheduled 1 year follow up for MARINO with Carie Nance. documented in this encounter Plan of Treatment Not on file documented as of this encounter Visit Diagnoses Not on filedocumented in this encounter Care Teams Educational Fundraising Director Relationship Specialty Start Date End Date Joel Collado MD [address] [place] [address] PCP - General Internal Medicine 12/12/19 Ratna Brannon MD [address] [place] [address] Obstetrics/Gynecology 11/03/22 documented as of this encounter
--- OUTSIDE RECORDS SUMMARY | 2024-05-17 14:26 | XMS_ITS | Encounter Summary ---
Author Organization [facility] Address [address] [place] [address] Care Team Providers Care Glass Enamel Mixer Name Role Phone Joel Collado MD Primary Care Provider [phone] Ratna Brannon MD Unavailable Unavailable Reason for Visit * Reason Onset Date Comments Faxed Order 11/13/2020 [employer] e Encounter Details Date Type Department Care Team Description 11/13/2020 Telephone Adult Medicine [address] [phone] Joel Collado MD [address] [place] [address] Faxed Order ([facility] Care) Social History Tobacco Use Types Packs/Day Years Used Date Smoking Tobacco: Former Cigarettes Q uit: 02/04/2016 Smokeless Tobacco: Never Alcohol Use Standard Drinks/Week Comments Yes 0 (1 standard drink = 0.6 oz pure alcohol) history alcohol abuse; occasionally Sex Assigned at Date Recorded Female 03/16/2023 7:18 AM EST Job Start Date Occupation Industry Not on file Not on file Not on file COVID-19 Exposure Response Date Recorded In the last month, have you been in contact with someone who was confirmed or suspected to have Coronavirus / COVID-19? No / Unsure 10/24/2020 1:42 PM EDT documented as of this encounter Miscellaneous Notes * Telephone Encounter - Lois Jimenez - 11/13/2020 10:[address] in Doctor Bin :[facility] Please Sign,Fax when Completed documented in this encounter Plan of Treatment Not on file documented as of this encounter Visit Diagnoses Not on filedocumented in this encounter Care Teams Glass Enamel Mixer Relationship Specialty Start Date End Date Joel Collado MD [address] [place] [address] PCP - General Internal Medicine 12/12/19 Ratna Brannon MD [address] [place] [address] Obstetrics/Gynecology 11/03/22 documented as of this encounter
--- OUTSIDE RECORDS SUMMARY | 2024-05-17 14:26 | XMS_ITS | Encounter Summary ---
Author Organization [facility] Address [address] [place] [address] Care Team Providers Care Scrubber Operator Name Role Phone Joel Collado MD Primary Care Provider [phone] Ratna Brannon MD Unavailable Unavailable Reason for Visit * Reason Onset Date Comments refill request 07/27/2022 Encounter Details Date Type Department Care Team Description 07/27/2022 Refill Pulmonology - [place] [address] [facility] [address] [place] [phone] Jacqui Cuellar APRN 175 [facility] [address] [place] [phone] refill request Social History Tobacco Use Types Packs/Day Years [...] encounter Miscellaneous Notes * Telephone Encounter - Francisca Goodson - 07/27/2022 8:40 AM EDT STANLEY:06/02/22 NoV: 12/02/22 documented in this encounter Plan of Treatment Not on file documented as of this encounter Visit Diagnoses Diagnosis Centrilobular emphysema (HCC) Other emphysema documented in this encounter Care Teams Scrubber Operator Relationship Specialty Start Date End Date Joel Collado MD [address] [place] [address] PCP - General Internal Medicine 12/12/19 Ratna Brannon MD [address] [place] [address] Obstetrics/Gynecology 11/03/22 documented as of this encounter
--- OUTSIDE RECORDS SUMMARY | 2024-05-17 14:26 | XMS_ITS | Encounter Summary ---
Author Organization [facility] Address [address] [place] [address] Care Team Providers Care Business Instructor Name Role Phone Joel Collado MD Primary Care Provider [phone] Ratna Brannon MD Unavailable Unavailable Reason for Visit * Reason Onset Date Comments medication problems 11/18/2022 Encounter Details Date Type Department Care Team Description 11/18/2022 Telephone Adult Medicine [address] [phone] Joel Collado MD [address] [place] [address] [phone] medication problems Social History Tobacco Use Types Packs/Day Years [...] Exposure Response Date Recorded In the last 10 days, have yo u been in contact with someone who was confirmed or suspected to have Coronavirus/COVID-19? No / Unsure 11/03/2022 8:05 AM EDT documented as of this encounter Miscellaneous Notes * Telephone Encounter - Alysia Barclay - 11/18/2022 3:07 PM EDT documented in this encounter Plan of Treatment Not on file documented as of this encounter Visit Diagnoses Not on filedocumented in this encounter Care Teams Business Instructor Relationship Specialty Start Date End Date Joel Collado MD [address] [place] [address] PCP - General Internal Medicine 12/12/19 Ratna Brannon MD [address] [place] [address] Obstetrics/Gynecology 11/03/22 documented as of this encounter
--- OUTSIDE RECORDS SUMMARY | 2024-05-17 14:26 | XMS_ITS | Encounter Summary ---
Author Organization [facility] Address [address] [place] [address] Care Team Providers Care Piano Stringer Name Role Phone Joel Collado MD Primary Care Provider [phone] Ratna Brannon MD Unavailable Unavailable Reason for Visit * Reason Onset Date Comments Faxed Refill 04/16/2020 Encounter Details Date Type Department Care Team Description 04/16/2020 Refill Adult Medicine B - [address] [address] Joel Collado MD [address] [place] [address] Faxed Refill Social History Tobacco Use Types Packs/Day Years [...] encounter Miscellaneous Notes * Telephone Encounter - Katy Barnett M.A. - 04/16/2020 2:12 PM EST Last office visit: 02.12.20 Pending 04.24.20 Lab Results Component Value Date NA 142 12/02/2019 K 4.5 12/02/2019 CO2 32 12/02/2019 CL 105 12/02/2019 BUN 15 12/02/2019 CREAT 1.05 12/02/2019 GLU 100 12/02/2019 CA 9.4 12/02/2019 GFR 53 12/02/2019 Lab Results Component Value Date CHOL 166 12/02/2019 LDL 72 12/02/2019 HDL 75 12/02/2019 TRIG 96 12/02/2019 SGOT 22 06/21/2017 SGPT 28 06/21/2017 * Telephone Encounter - Rain Garduno - 04/16/2020 1:32 PM EST Patient would like script to be: E-PRESCRIBED/FAXED TO PHARMACY WHEN WAS THE PATIENT'S LAST APPOINTMENT IN ADULT MEDICINE? 02/12/2020 WHEN WAS THE LAST TIME THE PATIENT SAW THEIR PCP? Same as above Does patient have an upcoming appointment? Yes 04/24/2020 (THE MEDICATION REQUESTED IS ON THE MED LIST ABOVE) All of the medications requested were on the CURRENT MEDS list Did you check the Pharmacy information above?: YES Patient wants: 30 -day supply Is this a mail order prescription request ? NO If the refill is from a FAXED refill request what is the RX # listed on the fax? N/A Patients current insurance carrier is: [place] / [place] / Product Type: MEDICARE [id number] documented in this encounter Plan of Treatment Not on file documented as of this encounter Visit Diagnoses Not on filedocumented in this encounter Care Teams Piano Stringer Relationship Specialty Start Date End Date Joel Collado MD [address] [place] [address] PCP - General Internal Medicine 12/12/19 Ratna Brannon MD [address] [place] [address] Obstetrics/Gynecology 11/03/22 documented as of this encounter
--- OUTSIDE RECORDS SUMMARY | 2024-05-17 14:26 | XMS_ITS | Encounter Summary ---
Author Organization [facility] Address [address] [place] [address] Care Team Providers Care Pharmacy Informatics Manager Name Role Phone Joel Collado MD Primary Care Provider [phone] Ratna Brannon MD Unavailable Unavailable Encounter Details Date Type Department Care Team Description 11/25/2020 Home Health Certification Medical Records [address] [place] [address] Social History Tobacco Use Types Packs/Day Years [...] on file documented as of this encounter Plan of Treatment Not on file documented as of this encounter Visit Diagnoses Not on filedocumented in this encounter Care Teams Pharmacy Informatics Manager Relationship Specialty Start Date End Date Joel Collado MD [address] [place] [address] PCP - General Internal Medicine 12/12/19 Ratna Brannon MD [address] [place] [address] Obstetrics/Gynecology 11/03/22 documented as of this encounter
--- OUTSIDE RECORDS SUMMARY | 2024-05-17 14:26 | XMS_ITS | Encounter Summary ---
Author Organization [facility] Address [address] [place] [address] Care Team Providers Care Cabinet Assembler Name Role Phone Joel Collado MD Primary Care Provider [phone] Ratna Brannon MD Unavailable Unavailable Reason for Visit * Reason Onset Date Comments medication problems 10/31/2020 Encounter Details Date Type Department Care Team Description 10/31/2020 Telephone Adult Medicine [address] [phone] Joel Collado MD [address] [place] [address] [phone] medication problems Social History Tobacco Use Types [...] * Telephone Encounter - Lois Jimenez - 11/04/2020 12:17 PM EDT Pt is calling asking about the script and asking if she can get the frestyle one instead cause her insurance does pay for that one and for it not to say prediabetic * Telephone Encounter - Aishwarya Heck M.A. - 11/01/2020 4:42 PM EDT Script pended, but needs DM diagnosis attached, please add diagnosis, thank you. Script can not be approved with prediabetes diagnosis as it was sent this way yesterday. * Telephone Encounter - Joel Collado MD - 11/01/2020 4:40 PM EDT 6.5 is diabetes at this point-- thank you * Telephone Encounter - Aishwarya Heck M.A. - 11/01/2020 12:52 PM EDT Prediabetes is the only diagnosis on problem list related, a1c was 6.5% on 10/24/20. Please advise ifthis patient is now considered diabetic as glucometer Rx was sent with prediabetes diagnosis, heber. Patient last seen 10/24/20. * Telephone Encounter - Vilma [place] - 11/01/2020 11:56 AM EDT Pt states that her insurance co is not covering the glucose monitor because the diagnosis is listedas prediabetic and not diabetic. She ask could it be changed and resubmitted with the diabetic diagnosis. Pls send to: [facility]/pharmacy #[id number] - [place] - [address] [place] [address] AT [address], [address] [facility] I-90?[phone] * Telephone Encounter - Aishwarya Heck M.A. - 10/31/2020 3:25 PM EDT New meter pended. Last seen 10/24/20, next appt 01/27/21 Lab Results Component Value Date HGBA1C 6.5 10/24/2020 MALBUR < 5.0 10/24/2020 MALBCR < 8.6 10/24/2020 CHOL 126 10/24/2020 LDL 38 10/24/2020 HDL 64 10/24/2020 TRIG 123 10/24/2020 GLU 115 10/24/2020 CREAT 1.03 10/24/2020 * Telephone Encounter - Jia Gannon - 10/31/2020 3:16 PM EDT Who is calling? The patient Name of the medication Blood Glucose Monitoring Suppl (ONE TOUCH ULTRA 2) w/Device Kit ; ONE TOUCH BASIC STRIPS What is the specific problem or interaction? Patient stating pharmacy does not carry that model andher insurance doesn't cover it If the patient is having a problem with taking the med - how long has the problem been going on? N/A documented in this encounter Plan of Treatment Not on file documented as of this encounter Visit Diagnoses Diagnosis Prediabetes- Primary Other abnormal glucose Diabetes mellitus, latent Secondary diabetes mellitus without mention of complication, not stated as uncontrolled, or unspecified documented in this encounter Care Teams Cabinet Assembler Relationship Specialty Start Date End Date Joel Collado MD [address] [place] [phone] PCP - General Internal Medicine 12/12/19 Ratna Brannon MD [address] [place] [address] Obstetrics/Gynecology 11/03/22 documented as of this encounter
--- OUTSIDE RECORDS SUMMARY | 2024-05-17 14:26 | XMS_ITS | Encounter Summary ---
Author Organization [facility] Address [address] [place] [address] Care Team Providers Care Hand Sizer Name Role Phone Joel Collado MD Primary Care Provider [phone] Ratna Brannon MD Unavailable Unavailable Reason for Visit * Reason Onset Date Comments Medication 07/16/2022 Encounter Details Date Type Department Care Team Description 07/16/2022 Telephone Adult Medicine A [address] [address] Joel Collado MD [address] [place] [address] Medication Social History Tobacco Use Types Packs/Day Years [...] encounter Miscellaneous Notes * Telephone Encounter - Pau Isabel M.A. - 07/16/2022 9:36 AM EDT Last office visit 05/07/22 Lab Results Component Value Date NA 141 05/07/2022 K 3.8 05/07/2022 CO2 26 05/07/2022 CL 107 05/07/2022 BUN 17 05/07/2022 CREAT 1.10 05/07/2022 GLU 100 05/07/2022 CA 8.8 05/07/2022 GFR 56 05/07/2022 Lab Results Component Value Date HGBA1C 5.8 05/07/2022 MALBUR < 5.0 05/07/2022 MALBCR < 6.7 05/07/2022 CHOL 185 05/07/2022 LDL 92 05/07/2022 HDL 73 05/07/2022 TRIG 102 05/07/2022 GLU 100 05/07/2022 CREAT 1.10 05/07/2022 * Telephone Encounter - Rain West - 07/16/2022 9:26 AM EDT Who is calling? A pharmacist: Pharmacy: [facility] Pharmacist Name: Pharmacy Phone # Name of the medication FreeStyle Lancets Misc What is the specific problem or interaction? The insurance doestn cover this brand would need to beprotege brand for lancets and test strips If the patient is having a problem with taking the med - how long has the problem been going on? N/A documented in this encounter Plan of Treatment Not on file documented as of this encounter Visit Diagnoses Not on filedocumented in this encounter Care Teams Hand Sizer Relationship Specialty Start Date End Date Joel Collado MD [address] [place] [address] PCP - General Internal Medicine 12/12/19 Ratna Brannon MD [address] [place] [address] Obstetrics/Gynecology 11/03/22 documented as of this encounter
--- OUTSIDE RECORDS SUMMARY | 2024-05-17 14:26 | XMS_ITS | Encounter Summary ---
Author Organization [facility] Address [address] [place] [address] Care Team Providers Care Manager Of School Name Role Phone Joel Collado MD Primary Care Provider [phone] Ratna Brannon MD Unavailable Unavailable Reason for Visit * Reason Onset Date Comments Faxed Order 03/02/2022 [facility] Health Plan of Care Encounter Details Date Type Department Care Team Description 03/02/2022 Telephone Adult Medicine [address] [phone] Joel Collado MD [address] [place] [address] Faxed Order ([facility] ) Social History Tobacco Use Types Packs/Day Years [...] suspected to have Coronavirus/COVID-19? No / Unsure 03/04/2022 12:16 PM EST documented as of this encounter Miscellaneous Notes * Telephone Encounter - Chen Vincent - 03/02/2022 1:37 PM EST Faxed order received by [facility]. Order placed in Dr. Collado's bin for signature. Please fax back to [phone] after completion. documented in this encounter Plan of Treatment Not on file documented as of this encounter Visit Diagnoses Not on filedocumented in this encounter Care Teams Manager Of School Relationship Specialty Start Date End Date Joel Collado MD [address] [place] [address] PCP - General Internal Medicine 12/12/19 Ratna Brannon MD [address] [place] [address] Obstetrics/Gynecology 11/03/22 documented as of this encounter
--- OUTSIDE RECORDS SUMMARY | 2024-05-17 14:26 | XMS_ITS | Encounter Summary ---
Author Organization [facility] Address [address] [place] [address] Care Team Providers Care Landfill Gas Technician Name Role Phone Joel Collado MD Primary Care Provider [phone] Ratna Brannon MD Unavailable Unavailable Encounter Details Date Type Department Care Team Description 11/06/2020 Rescue Instructor Report Medical Records [address] [place] [address] Bright Purdy MD Social History Tobacco Use Types Packs/Day Years [...] PM EDT documented as of this encounter Plan of Treatment Not on file documented as of this encounter Visit Diagnoses Not on filedocumented in this encounter Care Teams Landfill Gas Technician Relationship Specialty Start Date End Date Joel Collado MD [address] [place] [address] PCP - General Internal Medicine 12/12/19 Ratna Brannon MD [address] [place] [address] Obstetrics/Gynecology 11/03/22 documented as of this encounter
--- OUTSIDE RECORDS SUMMARY | 2024-05-17 14:26 | XMS_ITS | Encounter Summary ---
Author Organization [facility] Address [address] [place] [address] Care Team Providers Care Fisher Crab Name Role Phone Joel Collado MD Primary Care Provider [phone] Ratna Brannon MD Unavailable Unavailable Encounter Details Date Type Department Care Team Description 08/03/2022 Orders Only [facility] Lung Screening Program [place] [address] [facility] [address] [place] [address] Phil Weems MD 299 [facility] [place] [address] [place] [address] History of tobacco abuse Social History Tobacco Use Types Packs/Day Years [...] on file documented as of this encounter Procedures Procedure Name Priority Date/Time Associated Diagnosis Comments CT LOW DOSE LUNG SCREEN ANNUAL Routine 07/25/2022 History of tobacco abuse documented in this encounter Results * CT LOW DOSE LUNG SCREEN ANNUAL (07/25/2022) Phil Weems MD CT SCANS documented in this encounter Visit Diagnoses Diagnosis History of tobacco abuse Personal history of tobacco use, presenting hazards to health documented in this encounter Care Teams Fisher Crab Relationship Specialty Start Date End Date Joel Collado MD [address] [place] [address] PCP - General Internal Medicine 12/12/19 Ratna Brannon MD [address] [place] [address] Obstetrics/Gynecology 11/03/22 documented as of this encounter
--- OUTSIDE RECORDS SUMMARY | 2024-05-17 14:26 | XMS_ITS | Encounter Summary ---
Author Organization [facility] Address [address] [place] [address] Care Team Providers Care Ski Molder Name Role Phone Joel Collado MD Primary Care Provider [phone] Ratna Brannon MD Unavailable Unavailable Reason for Visit * Reason Comments E-prescribe Rx Request Encounter Details Date Type Department Care Team Description 11/27/2022 Refill Pulmonology - [place] 175 [facility] [address] [place] [phone] Jacqui Cuellar APRN 175 [facility] 200 [place] [phone] E-prescribe Rx Request Social History Tobacco Use Types Packs/Day Years [...] encounter Miscellaneous Notes * Telephone Encounter - Winnie Ojeda - 11/27/2022 4:43 PM EDT [place] 06/02/22 NOV 12/02/22 documented in this encounter Plan of Treatment Not on file documented as of this encounter Visit Diagnoses Diagnosis MARINO and COPD overlap syndrome (HCC) Centrilobular emphysema (HCC) Other emphysema Follow up at [facility] for screening for malignant neoplasm of lung Pulmonary nodules Other nonspecific abnormal finding of lung field MARINO (obstructive sleep apnea) Obstructive sleep apnea (adult) (pediatric) Chronic idiopathic granulomatous disease (HCC) Fibromyalgia Mylagia and myositis, unspecified documented in this encounter Care Teams Ski Molder Relationship Specialty Start Date End Date Joel Collado MD [address] [place] [address] PCP - General Internal Medicine 12/12/19 Ratna Brannon MD [address] [place] [address] Obstetrics/Gynecology 11/03/22 documented as of this encounter
--- OUTSIDE RECORDS SUMMARY | 2024-05-17 14:26 | XMS_ITS | Encounter Summary ---
Author Organization [facility] Address [address] [place] [address] Care Team Providers Care Baby Attendant Name Role Phone Joel Collado MD Primary Care Provider [phone] Ratna Brannon MD Unavailable Unavailable Reason for Visit * Reason Onset Date Comments DME Request 08/24/2022 Encounter Details Date Type Department Care Team Description 08/24/2022 Telephone Pulmonology - [place] 175 [facility] [address] [place] [phone] Jacqui Cuellar APRN 175 [facility] [address] [place] [phone] DME Request Social History Tobacco Use Types Packs/Day [...] * Telephone Encounter - Francisca Goodson - 08/24/2022 2:27 PM EDT Name of Product: A7030 Full Face Mask Qty.1 3 mos A7031 Full Face Cushion Qty.1 1 mos A7032 Nasal Cushion Qty.2 2 mos A7033 Nasal Pillows Qty.2 2 mos A7037 Cpap Tubing, STD Qty.1 3 mos A4604 Heated Tubing, Qty.1 3 mos A7038 Disposable Filters Qty.2 1 mos A7039 Non-Disposable Filter Qty.1 6 mos A7036 Chin Strap Qty.1 6 mos A7046 Water Chamber Repl, Qty.1 6 mos A7035 Headgear, Cpap Qty.1 6 mos A7034 Nasal Mask Qty.1 3 mos Specific information about product same as above # Needed 12 Reason patient is asking for this supply? G47.33, I10, G47.10, F51.04 Have you received this supply before? If yes , when?: yes - 06/08/22 Have you discussed the need for this supply with a provider at a recent visit? NO If yes, with who and when? N/A When completed: Fax to other office/MD at fax # [phone] Have you told the patient it will take 7-10 days for completion of this request? NO documented in this encounter Plan of Treatment Not on file documented as of this encounter Visit Diagnoses Not on filedocumented in this encounter Care Teams Baby Attendant Relationship Specialty Start Date End Date Joel Collado MD [address] [place] [address] PCP - General Internal Medicine 12/12/19 Ratna Brannon MD [address] [place] [address] Obstetrics/Gynecology 11/03/22 documented as of this encounter
--- OUTSIDE RECORDS SUMMARY | 2024-05-17 14:26 | XMS_ITS | Encounter Summary ---
Author Organization [facility] Address [address] [place] [address] Care Team Providers Care Jewel Setter Name Role Phone Joel Collado MD Primary Care Provider [phone] Ratna Brannon MD Unavailable Unavailable Encounter Details Date Type Department Care Team Description 07/11/2020 Gas Or Water Meter Installer Report Medical Records [address] [place] [address] Bright Purdy MD Social History Tobacco Use [...] have Coronavirus / COVID-19? No / Unsure 07/09/2020 1:25 PM EDT documented as of this encounter Plan of Treatment Not on file documented as of this encounter Visit Diagnoses Not on filedocumented in this encounter Care Teams Jewel Setter Relationship Specialty Start Date End Date Joel Collado MD [address] [place] [address] PCP - General Internal Medicine 12/12/19 Ratna Brannon MD [address] [place] [address] Obstetrics/Gynecology 11/03/22 documented as of this encounter
--- OUTSIDE RECORDS SUMMARY | 2024-05-17 14:26 | XMS_ITS | Encounter Summary ---
Author Organization [facility] Address [address] [place] [address] Care Team Providers Care Pamphlet Distributor Name Role Phone Joel Collado MD Primary Care Provider [phone] Ratna Brannon MD Unavailable Unavailable Reason for Visit * Reason Onset Date Comments Medication 12/23/2021 Encounter Details Date Type Department Care Team Description 12/23/2021 Refill Gastroenterology - [place] 175 [facility] [address] [place] [phone] Jeannine Mackey MD [address] [place] [address] Medication Social History Tobacco Use Types Packs/Day [...] suspected to have Coronavirus/COVID-19? No / Unsure 12/12/2021 8:52 AM EDT documented as of this encounter Plan of Treatment Not on file documented as of this encounter Visit Diagnoses Not on filedocumented in this encounter Care Teams Pamphlet Distributor Relationship Specialty Start Date End Date Joel oCllado MD [address] [place] [address] PCP - General Internal Medicine 12/12/19 Ratna Brannon MD [address] [place] [address] Obstetrics/Gynecology 11/03/22 documented as of this encounter
--- OUTSIDE RECORDS SUMMARY | 2024-05-17 14:26 | XMS_ITS | Encounter Summary ---
Author Organization [facility] Address [address] [place] [address] Care Team Providers Care Stage Set Up Worker Name Role Phone Joel Collado MD Primary Care Provider [phone] Ratna Brannon MD Unavailable Unavailable Encounter Details Date Type Department Care Team Description 11/25/2020 Home Health Certification Medical Records [address] [place] [address] Social History Tobacco Use Types Packs/Day Years [...] on filedocumented in this encounter Care Teams Stage Set Up Worker Relationship Specialty Start Date End Date Joel Collado MD [address] [place] [address] PCP - General Internal Medicine 12/12/19 Ratna Brannon MD [address] [place] [address] Obstetrics/Gynecology 11/03/22 documented as of this encounter
--- OUTSIDE RECORDS SUMMARY | 2024-05-17 14:26 | XMS_ITS | Encounter Summary ---
Author Organization [facility] Address [address] [place] [address] Care Team Providers Care House Wirer Name Role Phone Joel Collado MD Primary Care Provider [phone] Ratna Brannon MD Unavailable Unavailable Reason for Visit * Reason Onset Date Comments Form 05/21/2020 Encounter Details Date Type Department Care Team Description 05/21/2020 Telephone Adult Medicine B - [address] [address] Joel Collado MD [address] [place] [address] Form Social History Tobacco Use Types Packs/Day Years [...] have Coronavirus / COVID-19? No / Unsure 04/24/2020 7:42 AM EST documented as of this encounter Miscellaneous Notes * Telephone Encounter - Shi Ro - 05/21/2020 11:43 AM EDT Please obatin more information. What kind of form was it? Where was it faxed over to and when? * Telephone Encounter - Melanie Victoria - 05/21/2020 11:01 AM EDT [facility] is calling regarding a form that was faxed over please advise and call when received . documented in this encounter Plan of Treatment Not on file documented as of this encounter Visit Diagnoses Not on filedocumented in this encounter Care Teams House Wirer Relationship Specialty Start Date End Date Joel Collado MD [address] [place] [address] PCP - General Internal Medicine 12/12/19 Ratna Brannon MD [address] [place] [address] Obstetrics/Gynecology 11/03/22 documented as of this encounter
--- OUTSIDE RECORDS SUMMARY | 2024-05-17 14:26 | XMS_ITS | Encounter Summary ---
Author Organization [facility] Address [address] [place] [address] Care Team Providers Care Ripper Operator Name Role Phone Joel Collado MD Primary Care Provider [phone] Ratna Brannon MD Unavailable Unavailable Reason for Visit * Reason Onset Date Comments DME Request 06/08/2022 Encounter Details Date Type Department Care Team Description 06/08/2022 Telephone Pulmonology - [place] 175 [facility] [address] [place] [phone] Jacqui Cuellar APRN 175 [facility] 200 [place] [phone] DME Request Social History Tobacco Use Types [...] suspected to have Coronavirus/COVID-19? No / Unsure 06/02/2022 3:26 PM EDT documented as of this encounter Miscellaneous Notes * Telephone Encounter - Isha Pittman - 06/08/2022 11:08 AM EDT New mask order sent to [employer],confirmation received documented in this encounter Plan of Treatment Not on file documented as of this encounter Visit Diagnoses Not on filedocumented in this encounter Care Teams Ripper Operator Relationship Specialty Start Date End Date Joel Collado MD [address] [place] [address] PCP - General Internal Medicine 12/12/19 Ratna Brannon MD [address] [place] [address] Obstetrics/Gynecology 11/03/22 documented as of this encounter
--- OUTSIDE RECORDS SUMMARY | 2024-05-17 14:26 | XMS_ITS | Encounter Summary ---
Author [facility] Address [address] [place] [address] Care Team Providers Care Cryptographic Clerk Name Role Phone Joel Collado MD Primary Care Provider Ratna Brannon MD Unavailable Unavailable Reason for Visit * Reason Onset Date Comments Faxed Order 06/09/2022 [facility] 04/02 order Encounter Details Date Type Department Care Team Description 06/09/2022 Telephone Adult Medicine [address] [address] Joel Collado MD [address] [place] [address] Faxed Order ([facility] 04/02 order ) Social History Tobacco Use Types Packs/Day [...] Miscellaneous Notes * Telephone Encounter - Chen Man Vincent - 06/09/2022 11:58 AM EDT Faxed order received by [facility]. Order placed in 's bin for signature. Please fax back to [phone] after completion. documented in this encounter Plan of Treatment Not on file documented as of this encounter Visit Diagnoses Not on filedocumented in this encounter Care Teams Cryptographic Clerk Relationship Specialty Start Date End Date Joel Collado MD [address] [place] [address] PCP - General Internal Medicine 12/12/19 Ratna Brannon MD [address] [place] [address] Obstetrics/Gynecology 11/03/22 documented as of this encounter
--- OUTSIDE RECORDS SUMMARY | 2024-05-17 14:26 | XMS_ITS | Encounter Summary ---
Author Organization [facility] Address [address] [place] [address] Care Team Providers Care Plastic Panel Installer Name Role Phone Carmen Skelton MD Primary Care Provider [phone] Joel Collado MD Primary Care Provider [phone] Ratna Brannon MD Unavailable Unavailable Reason for Visit * Reason Onset Date Comments Abnormal Mammogram 09/14/2019 Encounter Details Date Type Department Care Team Description 09/14/2019 Telephone Radiology - [address] [address] Radiology, Authorizing Abnormal Mammogram Social History Tobacco Use Types Packs/Day Years [...] encounter Miscellaneous Notes * Telephone Encounter - Yumiko Pereira - 09/14/2019 11:24 AM EDT Called pt and scheduled add view mammo for 10/05/19 nc documented in this encounter Plan of Treatment Not on file documented as of this encounter Visit Diagnoses Not on filedocumented in this encounter Care Teams Plastic Panel Installer Relationship Specialty Start Date End Date Carmen Skelton MD [address] [place] [address] PCP - General Internal Medicine 05/30/15 12/11/19 Joel Collado MD [address] [place] [address] PCP - General Internal Medicine 12/12/19 Ratna Brannon MD [address] [place] [address] Obstetrics/Gynecology 11/03/22 documented as of this encounter
--- OUTSIDE RECORDS SUMMARY | 2024-05-17 14:26 | XMS_ITS | Encounter Summary ---
Author Organization [facility] Address [address] [place] [address] Care Team Providers Care Engine Head Repairer Name Role Phone Carmen Skelton MD Primary Care Provider [phone] Joel Collado MD Primary Care Provider [phone] Ratna Brannon MD Unavailable Unavailable Encounter Details Date Type Department Care Team Description 08/25/2016 Business Doc Medical Records [address] [place] [address] Abstract, Provider Social History Tobacco Use Types Packs/Day Years Used Date Smoking Tobacco: Former Cigarettes Q uit: 02/04/2016 Smokeless Tobacco: Former Alcohol Use Standard Drinks/Week Comments Yes 0 [...] on filedocumented in this encounter Care Teams Engine Head Repairer Relationship Specialty Start Date End Date Carmen Skelton MD [address] [place] [address] PCP - General Internal Medicine 05/30/15 12/11/19 Joel Collado MD [address] [place] [address] PCP - General Internal Medicine 12/12/19 Ratna Brannon MD [address] [place] [address] Obstetrics/Gynecology 11/03/22 documented as of this encounter
--- OUTSIDE RECORDS SUMMARY | 2024-05-17 14:26 | XMS_ITS | Encounter Summary ---
Author Organization [facility] Address [address] [place] [address] Care Team Providers Care Audio Visual Facilities Engineer Name Role Phone Joel Collado MD Primary Care Provider [phone] Ratna Brannon MD Unavailable Unavailable Reason for Visit * Reason Onset Date Comments VNA Call 10/24/2020 Encounter Details Date Type Department Care Team Description 10/24/2020 Telephone Adult Medicine A [address] [phone] Joel Collado MD [address] [place], [place] [phone] VNA Call Social History Tobacco Use Types Packs/Day Years [...] encounter Miscellaneous Notes * Telephone Encounter - Joel Collado MD - 10/24/2020 3:51 PM EDT Face to face * Telephone Encounter - Talya Altamirano L.P.N. - 10/24/2020 3:50 PM EDT Pt was seen today. Do you know anything about this? Please advise. * Telephone Encounter - Nimco Morocho - 10/24/2020 3:38 PM EDT [facility] CALL Which [facility] office is calling? [facility] Full name of caller: Bandar The caller is A nurse Is the caller at the patients home?: NO Reason for call: Bandar states she needs Joel Collado to fill out a face to face form with the pt's last physical notes for pt. Bandar states Joel Collado had no idea what what the pt was talkingabout during her appt today and the pt needs the paperwork filled out carlene Does caller need an urgent call back? YES Was CONTACT Telephone # obtained above?: YES Fax #: documented in this encounter Plan of Treatment Not on file documented as of this encounter Visit Diagnoses Not on filedocumented in this encounter Care Teams Audio Visual Facilities Engineer Relationship Specialty Start Date End Date Joel Collado MD [address] [place] [address] PCP - General Internal Medicine 12/12/19 Ratna Brannon MD [address] [place] [address] Obstetrics/Gynecology 11/03/22 documented as of this encounter
--- OUTSIDE RECORDS SUMMARY | 2024-05-17 14:26 | XMS_ITS | Encounter Summary ---
Author Organization [facility] Address [address] [place] [address] Care Team Providers Care Copyright Clerk Name Role Phone Carmen Skelton MD Primary Care Provider [phone] Joel Collado MD Primary Care Provider [phone] Ratna Brannon MD Unavailable Unavailable Encounter Details Date Type Department Care Team Description 08/19/2017 Business Doc Medical Records [address] [place] [address] Abstract, Provider Social History Tobacco Use Types [...] on filedocumented in this encounter Care Teams Copyright Clerk Relationship Specialty Start Date End Date Carmen Skelton MD [address] [place] [address] PCP - General Internal Medicine 05/30/15 12/11/19 Joel Collado MD [address] [place] [address] PCP - General Internal Medicine 12/12/19 Ratna Brannon MD [address] [place] [address] Obstetrics/Gynecology 11/03/22 documented as of this encounter
--- OUTSIDE RECORDS SUMMARY | 2024-05-17 14:26 | XMS_ITS | Encounter Summary ---
Author Organization [facility] Address [address] [place] [address] Care Team Providers Care Refrigeration Systems Installer Name Role Phone Joel Collado MD Primary Care Provider [phone] Ratna Brannon MD Unavailable Unavailable Encounter Details Date Type Department Care Team Description 11/30/2022 Questioned Documents Examiner Report Medical Records [address] [place] [address] Bita Walsh Social History Tobacco Use Types Packs/Day Years [...] suspected to have Coronavirus/COVID-19? No / Unsure 12/02/2022 9:13 AM EDT documented as of this encounter Plan of Treatment Not on file documented as of this encounter Visit Diagnoses Not on filedocumented in this encounter Care Teams Refrigeration Systems Installer Relationship Specialty Start Date End Date Jole Collado MD [address] [place] [address] PCP - General Internal Medicine 12/12/19 Ratna Brannon MD [address] [place] [address] Obstetrics/Gynecology 11/03/22 documented as of this encounter
--- OUTSIDE RECORDS SUMMARY | 2024-05-17 14:26 | XMS_ITS | Encounter Summary ---
Author Organization [facility] Address [address] [place] [address] Care Team Providers Care Occupational Therapist Per Diem Name Role Phone Joel Collado MD Primary Care Provider [phone] Ratna Brannon MD Unavailable Unavailable Reason for Visit * Reason Onset Date Comments medication problems 07/15/2022 Encounter Details Date Type Department Care Team Description 07/15/2022 Telephone Adult Medicine [address] [phone] Joel Collado MD [address] [place], [place] [phone] medication problems Social History Tobacco Use Types [...] encounter Miscellaneous Notes * Telephone Encounter - Lindsay Blake - 07/15/2022 11:15 AM EDT .Message below was given to patient. NAKUL WAYNE * Telephone Encounter - Joel Collado MD - 07/15/2022 10:39 AM EDT This will need to come from her neurologist--for both gabapentin and Fioricet which was not prescribed by me * Telephone Encounter - Mariangel Stevenson M.A. - 07/15/2022 10:34 AM EDT No instruction on gabapentin * Telephone Encounter - Alysia Barclay - 07/15/2022 10:05 AM EDT Who is calling? A pharmacist: [facility] Name of the medication gabapentin (NEURONTIN) 100 MG capsule What is the specific problem or interaction? No directions If the patient is having a problem with taking the med - how long has the problem been going on? N/A Who is calling? A pharmacist: [facility]: [facility] Name of the medication [id number] 50-300-40 MG OR CAPS (Fioricet) 50-300-40 MG Cap What is the specific problem or interaction? Should be PRN need clarification If the patient is having a problem with taking the med - how long has the problem been going on? N/A documented in this encounter Plan of Treatment Not on file documented as of this encounter Visit Diagnoses Not on filedocumented in this encounter Care Teams Occupational Therapist Per Diem Relationship Specialty Start Date End Date Joel Collado MD [address] [place] [address] PCP - General Internal Medicine 12/12/19 Ratna Brannon MD [address] [place] [address] Obstetrics/Gynecology 11/03/22 documented as of this encounter
--- OUTSIDE RECORDS SUMMARY | 2024-05-17 14:26 | XMS_ITS | Encounter Summary ---
Author Organization [facility] Address [address] [place] [address] Care Team Providers Care Air Bag Stripper Name Role Phone Joel Collado MD Primary Care Provider [phone] Ratna Brannon MD Unavailable Unavailable Reason for Visit * Reason Onset Date Comments VNA Call 12/30/2021 [facility] Encounter Details Date Type Department Care Team Description 12/30/2021 Telephone Adult Medicine - [address] [id number] Joel Collado MD [address] [place] [address] VNA Call ([facility] Care) Social History Tobacco Use Types Packs/Day [...] suspected to have Coronavirus/COVID-19? No / Unsure 01/01/2022 8:02 AM EST documented as of this encounter Miscellaneous Notes * Telephone Encounter - Melanie Hastings L.P.N. - 12/30/2021 1:33 PM EST Spoke w/ nurse, Aishwarya. Calling to report pt's vitals today: BP 160/88 HR 111 R. Patient is asymptomatic. BP and HR have been elevated this month. Pt has an implantable loop recorder so nurse called [facility] a few weeks ago regarding elevated HR and the nurse was told that the patients HR is stable. No need for Cardiology appt. Nurse advised the pt to report to the ER if she becomes symptomatic. Pt agrees. Pt has a pending appt with [facility] on 01/01/22. Thank you. * Telephone Encounter - Enedina Snow - 12/30/2021 12:52 PM EST VNA CALL Which VNA office is calling? [facility] Full name of caller: Aishwarya The caller is A nurse Is the caller at the patients home?: NO Reason for call: saw pt today BP 160/88 and pulse 111 Does caller need an urgent call back? NO Was CONTACT Telephone # obtained above?: YES Fax #: documented in this encounter Plan of Treatment Not on file documented as of this encounter Visit Diagnoses Not on filedocumented in this encounter Care Teams Air Bag Stripper Relationship Specialty Start Date End Date Joel Collado MD [address] [place] [address] PCP - General Internal Medicine 12/12/19 Ratna Brannon MD [address] [place] [address] Obstetrics/Gynecology 11/03/22 documented as of this encounter
--- OUTSIDE RECORDS SUMMARY | 2024-05-17 14:26 | XMS_ITS | Encounter Summary ---
Author Organization [facility] Address [address] [place] [address] Care Team Providers Care Shoe Repairer Helper Name Role Phone Carmen Skelton MD Primary Care Provider [phone] Joel Collado MD Primary Care Provider [phone] Ratna Brannon MD Unavailable Unavailable Encounter Details Date Type Department Care Team Description 12/20/2017 Employment Officer Report Medical Records [address] [place] [address] Bright Purdy MD Social History Tobacco Use [...] on filedocumented in this encounter Care Teams Shoe Repairer Helper Relationship Specialty Start Date End Date Carmen Skelton MD [address] [place] [address] PCP - General Internal Medicine 05/30/15 12/11/19 Joel Collado MD [address] [place] [address] [id number] PCP - General Internal Medicine 12/12/19 Ratna Brannon MD [address] [place] [address] Obstetrics/Gynecology 11/03/22 documented as of this encounter
--- OUTSIDE RECORDS SUMMARY | 2024-05-17 14:26 | XMS_ITS | Encounter Summary ---
Author Organization [facility] Address [address] [place] [address] Care Team Providers Care Cause Analyst Name Role Phone Joel Collado MD Primary Care Provider [phone] Ratna Brannon MD Unavailable Unavailable Reason for Visit * Reason Comments E-prescribe Rx Request Encounter Details Date Type Department Care Team Description 02/05/2022 Refill Adult Medicine [address] [address] Joel Collado MD [address] [place] [address] E-prescribe Rx Request Social History Tobacco Use [...] suspected to have Coronavirus/COVID-19? No / Unsure 02/02/2022 11:32 AM EST documented as of this encounter Miscellaneous Notes * Telephone Encounter - Shi Ro - 02/05/2022 3:41 PM EST Date of last offie visit 02/02/22 No pended appt. Lab Results Component Value Date NA 140 07/24/2021 K 4.2 07/24/2021 CO2 26 07/24/2021 CL 107 07/24/2021 BUN 20 07/24/2021 CREAT 1.01 07/24/2021 GLU 95 07/24/2021 CA 9.4 07/24/2021 GFR 55 07/24/2021 * Telephone Encounter - Dilcia Harriet - 02/05/2022 1:54 PM EST Patient would like script to be: E-PRESCRIBED/FAXED TO PHARMACY WHEN WAS THE PATIENT'S LAST APPOINTMENT IN ADULT MEDICINE? 02/02/22 WHEN WAS THE LAST TIME THE PATIENT SAW THEIR PCP? Same as above Does patient have an upcoming appointment? no (THE MEDICATION REQUESTED IS ON THE MED LIST ABOVE) All of the medications requested were on the CURRENT MEDS list Did you check the Pharmacy information above?: YES Patient wants: 90 -day supply Is this a mail order prescription request ? NO If the refill is from a FAXED refill request what is the RX # listed on the fax? N/A Patients current insurance carrier is: [place] / [place] / Product Type: MEDICARE [id number] documented in this encounter Plan of Treatment Not on file documented as of this encounter Visit Diagnoses Not on filedocumented in this encounter Care Teams Cause Analyst Relationship Specialty Start Date End Date Joel Collado MD [address] [place] [address] PCP - General Internal Medicine 12/12/19 Ratna Brannon MD [address] [place] [address] Obstetrics/Gynecology 11/03/22 documented as of this encounter
--- OUTSIDE RECORDS SUMMARY | 2024-05-17 14:26 | XMS_ITS | Encounter Summary ---
Author Organization [facility] Address [address] [place] [address] Care Team Providers Care Embossing Press Operator Apprentice Name Role Phone Carmen Skelton MD Primary Care Provider [phone] Joel Collado MD Primary Care Provider [phone] Ratna Brannon MD Unavailable Unavailable Reason for Visit * Reason Onset Date Comments DME Request 10/17/2019 Encounter Details Date Type Department Care Team Description 10/17/2019 Telephone Pulmonology - [place] [address] [facility] [address] [place] [address] Carie Nance, DUMPING MACHINE OPERATOR [address] [place], [place] [phone] DME Request Social History Tobacco Use Types [...] encounter Miscellaneous Notes * Telephone Encounter - China Saldana - 10/17/2019 9:20 AM EDT FYI for Jessenia Espinal Has new CPAP equipment for approximately 3 weeks - only problem is the mask fitting Which will be corrected. Wanted Carie to know she is doing well. Thank You documented in this encounter Plan of Treatment Not on file documented as of this encounter Visit Diagnoses Not on filedocumented in this encounter Care Teams Embossing Press Operator Apprentice Relationship Specialty Start Date End Date Carmen Skelton MD [address] [place] [address] PCP - General Internal Medicine 05/30/15 12/11/19 Joel Collado MD [address] [place] [address] PCP - General Internal Medicine 12/12/19 Ratna Brannon MD [address] [place] [address] Obstetrics/Gynecology 11/03/22 documented as of this encounter
--- OUTSIDE RECORDS SUMMARY | 2024-05-17 14:26 | XMS_ITS | Encounter Summary ---
Author Organization [facility] Address [address] [place] [address] Care Team Providers Care Utility Helicopter Repairer Name Role Phone Joel Collado MD Primary Care Provider [phone] Ratna Brannon MD Unavailable Unavailable Encounter Details Date Type Department Care Team Description 01/30/2020 Telephone Adult Medicine [address] [phone] Joel Collado MD [address] [place] [address] [phone] Social History Tobacco Use Types Packs/Day Years [...] have Coronavirus / COVID-19? No / Unsure 01/10/2020 8:33 AM EST documented as of this encounter Plan of Treatment Not on file documented as of this encounter Visit Diagnoses Not on filedocumented in this encounter Care Teams Utility Helicopter Repairer Relationship Specialty Start Date End Date Joel Collado MD [address] [place] [address] PCP - General Internal Medicine 12/12/19 Ratna Brannon MD [address] [place] [address] Obstetrics/Gynecology 11/03/22 documented as of this encounter
--- OUTSIDE RECORDS SUMMARY | 2024-05-17 14:26 | XMS_ITS | Encounter Summary ---
Author Organization [facility] Address [address] [place] [address] Care Team Providers Care Tractor Trailer Technician Name Role Phone Joel Collado MD Primary Care Provider [phone] Ratna Brannon MD Unavailable Unavailable Encounter Details Date Type Department Care Team Description 07/01/2022 Animal Assistant Report Medical Records [address] [place] [address] Bita Walsh Social History Tobacco Use Types [...] on filedocumented in this encounter Care Teams Tractor Trailer Technician Relationship Specialty Start Date End Date Joel Collado MD [address] [place] [address] PCP - General Internal Medicine 12/12/19 Ratna Brannon MD [address] [place] [address] Obstetrics/Gynecology 11/03/22 documented as of this encounter
--- OUTSIDE RECORDS SUMMARY | 2024-05-17 14:26 | XMS_ITS | Encounter Summary ---
Author Organization [facility] Address [address] [place] [address] Care Team Providers Care Juvenile Justice Officer Name Role Phone Carmen Skelton MD Primary Care Provider [phone] Joel Collado MD Primary Care Provider [phone] Ratna Brannon MD Unavailable Unavailable Reason for Visit * Reason Comments E-prescribe Rx Request Encounter Details Date Type Department Care Team Description 11/19/2017 Refill Pulmonology - [place] [address] [facility] [address] [place] [phone] Jarvis Lebron MD [address] [facility] [address] [place] [phone] E-prescribe Rx Request Social History Tobacco Use [...] encounter Miscellaneous Notes * Telephone Encounter - Aishwarya Ya LPN - 11/22/2017 11:[address] Rodriguez is out of the office until 11/30/17. Please address this refill request for our patient. Thank you. documented in this encounter Plan of Treatment Not on file documented as of this encounter Visit Diagnoses Diagnosis Chronic obstructive pulmonary disease, unspecified COPD type (HCC) Obstructive sleep apnea severe AHI 32 Obstructive sleep apnea (adult) (pediatric) Esophageal dysmotility Dyskinesia of esophagus PTSD (post-traumatic stress disorder) Posttraumatic stress disorder Former smoker Personal history of tobacco use, presenting hazards to health MARINO and COPD overlap syndrome (HCC) documented in this encounter Care Teams Juvenile Justice Officer Relationship Specialty Start Date End Date Carmen Skelton MD [address] [place] [address] PCP - General Internal Medicine 05/30/15 12/11/19 Joel Collado MD [address] [place] [address] PCP - General Internal Medicine 12/12/19 Ratna Brannon MD [address] [place] [address] Obstetrics/Gynecology 11/03/22 documented as of this encounter
--- OUTSIDE RECORDS SUMMARY | 2024-05-17 14:27 | XMS_ITS | Encounter Summary ---
Author Organization [facility] Address [address] [place] [address] Care Team Providers Care Professional Nursing Tutor Name Role Phone Carmen Skelton MD Primary Care Provider [phone] Joel Collado MD Primary Care Provider [phone] Ratna Brannon MD Unavailable Unavailable Encounter Details Date Type Department Care Team Description 06/04/2017 Hospital Medical Records [address] [place] [id number] [place] [address] Social History Tobacco Use Types Packs/Day Years Used Date Smoking Tobacco: Former Cigarettes Q uit: 02/04/2016 Passive Smoke Exposure: Past Smokeless Tobacco: Never Alcohol Use Standard Drinks/Week [...] on filedocumented in this encounter Care Teams Professional Nursing Tutor Relationship Specialty Start Date End Date Carmen Skelton MD [address] [place] [address] PCP - General Internal Medicine 05/30/15 12/11/19 Joel Collado MD [address] [place] [address] PCP - General Internal Medicine 12/12/19 Ratna Brannon MD [address] [place] [address] Obstetrics/Gynecology 11/03/22 documented as of this encounter
--- OUTSIDE RECORDS SUMMARY | 2024-05-17 14:27 | XMS_ITS | Encounter Summary ---
Author Organization [facility] Address [address] [place] [address] Care Team Providers Care Clothing Sales Assistant Name Role Phone Joel Collado MD Primary Care Provider [phone] Ratna Brannon MD Unavailable Unavailable Reason for Visit * Reason Comments E-prescribe Rx Request Encounter Details Date Type Department Care Team Description 06/11/2023 Refill Pulmonology - [place] 175 [facility] [address] [place] [phone] Jacqui Cuellar APRN 175 [facility] [address] [place] [phone] E-prescribe Rx Request Social History Tobacco Use [...] encounter Miscellaneous Notes * Telephone Encounter - Thao Nunez - 06/11/2023 3:28 PM EDT Nov 07/05/23 Silva 04/05/23 documented in this encounter Plan of Treatment Not on file documented as of this encounter Visit Diagnoses Diagnosis MARINO and COPD overlap syndrome (HCC) Centrilobular emphysema (HCC) Other emphysema Follow up at [facility] for screening for malignant neoplasm of lung Pulmonary nodules Other nonspecific abnormal finding of lung field MARINO (obstructive sleep apnea) Obstructive sleep apnea (adult) (pediatric) Chronic idiopathic granulomatous disease (HCC) Fibromyalgia Mylagia and myositis, unspecified documented in this encounter Care Teams Clothing Sales Assistant Relationship Specialty Start Date End Date Joel Collado MD [address] [place] [address] PCP - General Internal Medicine 12/12/19 Ratna Brannon MD [address] [place] [address] Obstetrics/Gynecology 11/03/22 documented as of this encounter
--- OUTSIDE RECORDS SUMMARY | 2024-05-17 14:27 | XMS_ITS | Encounter Summary ---
Author Organization [facility] Address [address] [place] [address] Care Team Providers Care Lead Pourer Name Role Phone Joel Collado MD Primary Care Provider [phone] Ratna Brannon MD Unavailable Unavailable Reason for Visit * Reason Comments E-prescribe Rx Request Encounter Details Date Type Department Care Team Description 06/15/2021 Refill Pulmonology - [place] 175 [facility] [address] [place] [phone] Jacqui Cuellar APRN 175 [facility] 200 [place] [phone] E-prescribe Rx Request Social History Tobacco Use [...] emphysema (HCC) Other emphysema Follow up at [facility] for screening for malignant neoplasm of lung Pulmonary nodules Other nonspecific abnormal finding of lung field MARINO (obstructive sleep apnea) Obstructive sleep apnea (adult) (pediatric) Chronic idiopathic granulomatous disease (HCC) Fibromyalgia Mylagia and myositis, unspecified documented in this encounter Care Teams Lead Pourer Relationship Specialty Start Date End Date Joel Collado MD [address] [place] [address] PCP - General Internal Medicine 12/12/19 Ratna Brannon MD [address] [place] [address] Obstetrics/Gynecology 11/03/22 documented as of this encounter
--- OUTSIDE RECORDS SUMMARY | 2024-05-17 14:27 | XMS_ITS | Clinical Summary ---
Author Organization 175 [facility] Address [address] [place] [address] Phone Care Team Providers Care Court Stenographer Name Role Phone Joel Collado MD Primary Care Provider Allergies Active Allergy Reactions Criticality Noted Date Comments Umeclidinium [place] 12/17/2016 Throat tightness Medications topiramate (TOPAMAX) 100 [...] Not Applicable route. 09/03/19 Active blood-glucose meter [facility] 05/08/19 Active isopropyl alcohol-benzoc wong 70-6 % [...] Incontinence Supply Disposable (Depend Pant Extra Large) [facility] Depends silhouette L-XL ??Use 2-3 times daily [...] 56 capsule 5 03/21/19 25 Active lancets (JeNu BiosciencesTouch Delica Plus Lancet) 30 gauge USE TO [...] 94%. For the entire study, PLMs ~5. [facility] Home Sleep Apnea Test: Date 08/11/2019; [...] test. Obstructive sleep apnea 01/21/2017 Overview (11/25/2023): [facility] treatment Polysomnogram: Date 01/21/2023; Wt 220#; BMI 40.24; SE 92%; SM 94%; REM 13%; CPAP @6 10- 12 cm: AHI 3, REM AHI 2, Central apneas 9; Obstructive apneas 0; Mixed apneas 0; hypopneas 13; average oxygen saturation 94% (lowest 88%); PL~11 [facility] Home Sleep Apnea Test: Date 08/11/2019; [...] 04/27/2024 Telephone Internal Medicine - [place] [address] [facility] [place] [address] Joel Collado MD Request For Order(s) ([facility]) 02/21/2024 Telephone Internal Medicine - [place] [address] [facility] [place] [address] Joel Collado MD Nausea from [...] [place] OTHER SURGICAL HISTORY 03/12/2015 Right PROCEDURE: PA PARTIAL EXCISION BONE CLAVICLE; COMMENT: Dr. Declan [place] (distal clavical excision) TUBAL LIGATION PROCEDURE: HISTORICAL TUBAL LIGATION; COMMENT: and tubal BLADDER SURGERY 09/2015 PROCEDURE: HISTORICAL BLADDER SURGERY; COMMENT: bladder sling; Dr. Brannon OTHER SURGICAL HISTORY 08/2018 PROCEDURE: MAMMOGRAM Medical History Medical History Date Comments Diabetes ([facility]) DX:Diabetes ( [facility]) Hypertension DX:Hypertension Hyperlipemia DX:Hyperlipemia Obesity DX:Obesity Depression DX:Depression GERD (gastroesophageal reflux disease) DX:GERD (gastroesophageal reflux disease) Fibromyalgia 07/11/2015 DX:Fibromyalgia PTSD (post-traumatic stress disorder) 07/11/2015 DX:PTSD (post-traumatic stress disorder) TIA (transient ischemic attack) 04/17/2019 DX:TIA (transient ischemic attack); COMMENT: Left facial numbness, arm weakness 04/06 Type 2 diabetes mellitus, co ntrolled, 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 Declan [place]nes Family History Medical History Relation Name Comments Lung cancer Brother esophageal canc er Alcohol abuse Daughter Emphysema Father [place], prostate ca ncer Breast cancer Mother Dementia [...] 9:00 AM EDT Office Visit Internal Medicine [address] [phone] Joel Collaod MD [address] [place] [address] 07/04/2024 9:10 AM EDT Office Visit Pulmonolgy - [place] [address] [facility] [address] [place] [phone] Jacqui Cuellar NP [address] [place] [address] 08/21/2024 10:30 AM EDT Consult Bariatric Surgery - [place] [address] [facility] [address] [place] [address] Melanie Olivares PA [address] [place] [address] 10/13/2024 10:30 AM EDT Appointment Radiology Department - [address] [phone] Health Maintenance Due Date Last Done Comments [...] * Annual BMP Blood Test (06/17/2023) Pathologist [facility] Annual BMP Blood Test abstracted Result [facility] CO HEALTH MAINTENANCE Final Result * Falls Risk Assessment (02/16/2023) [facility] Falls Risk Assessment abstracted Result [facility] HEALTH MAINTENANCE Final Result * Depression Screening (02/16/2023) [facility] Depression Screening abstracted Result [facility] HEALTH MAINTENANCE Final Result * Hemoglobin A1c (02/16/2023) [facility] Hemoglobin A1C 6.4 <=6.5 % Blood Venous blood specimen / Unknown Result [facility] LAB BLOOD ORDERABLES Kerline l Result * [...] (World Health Organization Fracture Risk Assessment) [facility] Department of Internal Medicine recommends using National [...] (World Health Organization Fracture Risk Assessment) [facility] Department of Internal Medicine recommendsusing National Osteoporosis [...] Result * Urine Albumin Creatinine Ratio (11/03/2022) [facility] Urine Albumin Creatinine Ratio abstracted Result [facility] Provider HEALTH MAINTENANCE Final Result * Lipid panel (11/03/2022) [facility] LDL/HDL Ratio 2 0 - 4 Triglycerides 106 0 - 150 mg/dL Cholesterol 117 0 - 200 mg/dL HDL 73 >=40 mg/dL LDL Cholesterol 23 0 - 100 mg/dL Blood Venous blood specimen / Unknown Result [facility] LAB BLOOD ORDERABLES Kerline l Result * Colonoscopy (01/06/2022) [facility] Colonoscopy no interpretation , abstracted Anatomical Region Laterality Modality Other Result [facility] HEALTH MAINTENANCE Final Result * Hepatitis C Screening (05/22/2016) [facility] Hepatitis C Screening abstacted Result [facility] HEALTH MAINTENANCE Final Result from Last 3 Months or Most Recently Relevant to Health Maintenance Insurance [place] Care Teams Court Stenographer Relationship Specialty Start Date End Date Joel Collado MD [address] [place] [address] PCP - General Internal Medicine 12/12/19
--- OUTSIDE RECORDS SUMMARY | 2024-05-17 14:27 | XMS_ITS | Encounter Summary ---
Author Organization [facility] Address [address] [place] [address] Care Team Providers Care Drapery Estimator Name Role Phone Joel Collado MD Primary Care Provider [phone] Ratna Brannon MD Unavailable Unavailable Encounter Details Date Type Department Care Team Description 03/29/2023 Owner Manager Report Medical Records [address] [place] [address] Bita Walsh Social History Tobacco Use Types [...] on filedocumented in this encounter Care Teams Drapery Estimator Relationship Specialty Start Date End Date Joel Collado MD [address] [place] [address] PCP - General Internal Medicine 12/12/19 Ratna Brannon MD [address] [place] [address] Obstetrics/Gynecology 11/03/22 documented as of this encounter
--- OUTSIDE RECORDS SUMMARY | 2024-05-17 14:27 | XMS_ITS | Encounter Summary ---
Author Organization [facility] Address [address] [place] [address] Care Team Providers Care Balancing Machine Set Up Worker Name Role Phone Joel Collado MD Primary Care Provider [phone] Ratna Brannon MD Unavailable Unavailable Reason for Visit * Reason Onset Date Comments Error 08/23/2023 Encounter Details Date Type Department Care Team Description 08/23/2023 Telephone Pulmonology - [place] 175 [facility] [address] [place] [phone] Jacqui Cuellar APRN 175 [facility] 200 [place] [phone] Error Social History Tobacco Use Types Packs/Day Years [...] on filedocumented in this encounter Care Teams Balancing Machine Set Up Worker Relationship Specialty Start Date End Date Joel Collado MD [address] [place] [address] [phone] PCP - General Internal Medicine 12/12/19 Ratna Brannon MD [address] [place] [address] Obstetrics/Gynecology 11/03/22 documented as of this encounter
--- OUTSIDE RECORDS SUMMARY | 2024-05-17 14:27 | XMS_ITS | Encounter Summary ---
Author Organization [facility] Address [address] [place] [address] Care Team Providers Care Blown Film Extrusion Operator Name Role Phone Joel Collado MD Primary Care Provider Ratna Brannon MD Unavailable Unavailable Encounter Details Date Type Department Care Team Description 08/19/2023 Release of Information Medical Records [address] [place] [address] Abstract, Provider Social History Tobacco Use Types [...] on filedocumented in this encounter Care Teams Blown Film Extrusion Operator Relationship Specialty Start Date End Date Joel Collado MD [address] [place] [address] PCP - General Internal Medicine 12/12/19 Ratna Brannon MD [address] [place] [address] Obstetrics/Gynecology 11/03/22 documented as of this encounter
--- OUTSIDE RECORDS SUMMARY | 2024-05-17 14:27 | XMS_ITS | Encounter Summary ---
Author Organization [facility] Address [address] [place] [address] Care Team Providers Care Special Education Resource Teacher Name Role Phone Carmen Skelton MD Primary Care Provider [phone] Joel Collado MD Primary Care Provider Ratna Brannon MD Unavailable Unavailable Encounter Details Date Type Department Care Team Description 12/10/2016 Automobile Dealer Report Medical Records [address] [place] [address] Abstract, Provider Social History Tobacco Use Types [...] on filedocumented in this encounter Care Teams Special Education Resource Teacher Relationship Specialty Start Date End Date Carmen Skelton MD [address] [place] [address] PCP - General Internal Medicine 05/30/15 12/11/19 Joel Collado MD [address] [place] [address] PCP - General Internal Medicine 12/12/19 Ratna Brannon MD [address] [place] [address] Obstetrics/Gynecology 11/03/22 documented as of this encounter
--- OUTSIDE RECORDS SUMMARY | 2024-05-17 14:27 | XMS_ITS | Encounter Summary ---
Author Organization [facility] Address [address] [place] [address] Care Team Providers Care Doll Wig Maker Rooted Hair Name Role Phone Joel Collado MD Primary Care Provider [phone] Ratna Brannon MD Unavailable Unavailable Encounter Details Date Type Department Care Team Description 12/31/2022 Hospital Medical Records [address] [place] [address] Jeannine aMckey MD [address] [place] [address] Social History Tobacco Use Types Packs/Day Years [...] suspected to have Coronavirus/COVID-19? No / Unsure 12/28/2022 7:54 AM EST documented as of this encounter Plan of Treatment Not on file documented as of this encounter Visit Diagnoses Not on filedocumented in this encounter Care Teams Doll Wig Maker Rooted Hair Relationship Specialty Start Date End Date Joel Collado MD [address] [place] [address] [id number] PCP - General Internal Medicine 12/12/19 Ratna Brannon MD [address] [place] [address] Obstetrics/Gynecology 11/03/22 documented as of this encounter
--- OUTSIDE RECORDS SUMMARY | 2024-05-17 14:27 | XMS_ITS | Encounter Summary ---
Author Organization [facility] Address [address] [place] [address] Care Team Providers Care Day Camp Counselor Name Role Phone Joel Collado MD Primary Care Provider [phone] Ratna Brannon MD Unavailable Unavailable Reason for Visit * Reason Onset Date Comments medication problems 07/16/2021 Encounter Details Date Type Department Care Team Description 07/16/2021 Refill Adult Medicine A - [address] [id number] Joel Collado MD [address] [place] [address] [phone] medication problems Social History Tobacco Use Types [...] Miscellaneous Notes * Telephone Encounter - Thao Reid R.N. - 07/16/2021 9:24 AM EDT FYI Spoke with pt informed her Robitussin was sent to pharmacy on 05/16/21, pt was unaware. Pt is c/o cough is persisting still, pt saw dip filler, pt thought cough was related to CPAP machine she was told it is not. Pt states he saw PCP and ? related to meds pt c/o dry cough which can be productive at times and itis deep,pt states she gets coughing and has vomited at times. Pt has had cough 6-7 months she states as long as she has been on the Lisinopril ( pt started lisinopril in March) Pt is having yearly CT scan of chest for throat nodules next week at [facility]. Pt had a CXR 03/31/21 Pt scheduled a telehtela appt with PCP this pm. * Telephone Encounter - Sandy Luther L.P.N. - 07/16/2021 8:48 AM EDT pls triage/ script was wriiten on 05/16/21 * Telephone Encounter - Katy Thomas - 07/16/2021 8:35 AM EDT Who is calling? The patient Name of the medication Robitussin? Patient isn't sure what it is called. What is the specific problem or interaction? Insurance will not cover the cough medicine prescribed. Patient would like something similar that her insurance will cover as she still has a cough. If the patient is having a problem with taking the med - how long has the problem been going on? 1 month documented in this encounter Plan of Treatment Not on file documented as of this encounter Visit Diagnoses Not on filedocumented in this encounter Care Teams Day Camp Counselor Relationship Specialty Start Date End Date Joel Collado MD [address] [place] [address] PCP - General Internal Medicine 12/12/19 Ratna Brannon MD [address] [place] [address] Obstetrics/Gynecology 11/03/22 documented as of this encounter
--- OUTSIDE RECORDS SUMMARY | 2024-05-17 14:27 | XMS_ITS | Encounter Summary ---
Author Organization [facility] Address [address] [place] [address] Care Team Providers Care Boiler Repair Supervisor Name Role Phone Joel Collado MD Primary Care Provider [phone] Ratna Brannon MD Unavailable Unavailable Encounter Details Date Type Department Care Team Description 04/05/2023 Pt. Non Urgent Medical Question Adult Medicine B - [address] [address] Joel Collado MD [address] [place] [address] Social History Tobacco Use Types Packs/Day Years [...] Telephone Encounter - Pau Isabel M.A. - 04/05/2023 10:45 AM ESTFrom: Maria Luisa Mukherjee To: Leigh Collado Sent: 04/05/2023 10:42 AM EST Subject: Knee Do I need a referral to go to orthopedic doctor for my left knee? That???s been hurting me for a couple of months documented in this encounter Plan of Treatment Not on file documented as of this encounter Visit Diagnoses Not on filedocumented in this encounter Care Teams Boiler Repair Supervisor Relationship Specialty Start Date End Date Joel Collado MD [address] [place] [address] PCP - General Internal Medicine 12/12/19 Ratna Brannon MD [address] [place] [address] Obstetrics/Gynecology 11/03/22 documented as of this encounter
--- OUTSIDE RECORDS SUMMARY | 2024-05-17 14:27 | XMS_ITS | Encounter Summary ---
Author Organization [facility] Address [address] [place] [address] Care Team Providers Care Night Club Manager Name Role Phone Joel Collado MD Primary Care Provider [phone] Ratna Brannon MD Unavailable Unavailable Reason for Referral * EXTERNAL (Routine) - Authorized/Booked Specialty Diagnoses / Procedures Referred By Contact Referred To Contact Otolaryngology / Hearing Diagnoses Bilateral hearing loss, unspecified hearing loss type Procedures REFERRAL TO HEARING TEST Joel Collado MD [address] [place] [address] External Hearing Referral ID Status Reason Start Date Expiration Date V isits Requested Visits Authorized [id number] Authorized/B ooked 10/03/2021 01/07/2022 1 1 Reason for Visit * Reason Onset Date Comments REFERRAL 10/03/2021 Encounter Details Date Type Department Care Team Description 10/03/2021 Telephone Adult Medicine [address] [address] Joel Collado MD [address] [place] [address] REFERRAL Social History Tobacco Use Types Packs/Day Years [...] suspected to have Coronavirus/COVID-19? No / Unsure 09/18/2021 8:36 AM EDT documented as of this encounter Miscellaneous Notes * Telephone Encounter - Dennys Baird PA-C - 10/03/2021 1:27 PM EDT Referral placed as requested. * Telephone Encounter - Mariangel Stevenson M.A. - 10/03/2021 12:51 PM EDT [place]: 07/24/21 Called patient - she had hearing test done today at [facility] by Heriberto Krishna in [place] - she needs hearing aids and need a referral * Telephone Encounter - Nimco Morocho - 10/03/2021 12:06 PM EDT Caller requesting call back from provider: Is the caller the patient? YES If caller is not the patient, what is the callers name? N/A Callers relationship to patient? N/A If person calling is not the patient themselves, is there a verbal release in FYI or permanent comments for this person: YES Reason for call back: Pr states she needs an ENT referral to get her hearing aides, wants Joel Collado to refer her somewhere pt unsure where she wants referall to be placed Caller offered to speak with the nurse for assistance: YES Response: Patient offered to speak with nurse for assistance and patient agreed. Message forwarded to nurse. documented in this encounter Plan of Treatment Not on file documented as of this encounter Visit Diagnoses Diagnosis Bilateral hearing loss, unspecified hearing loss type- Primary documented in this encounter Care Teams Night Club Manager Relationship Specialty Start Date End Date Joel Collado MD [address] [place] [address] PCP - General Internal Medicine 12/12/19 Ratna Brannon MD [address] [place] [address] Obstetrics/Gynecology 11/03/22 documented as of this encounter
--- OUTSIDE RECORDS SUMMARY | 2024-05-17 14:27 | XMS_ITS | Encounter Summary ---
Author Organization [facility] Address [address] [place] [address] Care Team Providers Care Real Estate Consultant Name Role Phone Joel Collado MD Primary Care Provider [phone] Ratna Brannon MD Unavailable Unavailable Reason for Visit * Reason Onset Date Comments medication problems 07/22/2023 Encounter Details Date Type Department Care Team Description 07/22/2023 Telephone Adult Medicine A - [place] [address] [place], [place] [phone] Joel Collado MD [address] [place] [address] [phone] medication problems Social History Tobacco Use Types [...] Miscellaneous Notes * Telephone Encounter - Aishwarya Heck M.A. - 07/22/2023 4:06 PM EDT Called patient and she has one touch ultra now, received the test strips but needs the device and lancets. Rxs pended. Lab Results Component Value Date HGBA1C 6.4 02/16/2023 MALBUR < 5.0 11/03/2022 MALBCR < 10.8 11/03/2022 CHOL 117 11/03/2022 LDL 23 11/03/2022 HDL 73 11/03/2022 TRIG 106 11/03/2022 GLU 84 06/17/2023 CREAT 0.87 06/17/2023 * Telephone Encounter - Vilam Maurice - 07/22/2023 3:49 PM EDT Who is calling? The patient Name of the medication glucose blood test strips (ASCENSIA AUTODISC ,ONE TOUCH ULTRA TEST ) strip What is the specific problem or interaction? Pt's ins will no longer cover supplies for her old glucometer, so we sent the new glucose blood test strips (ASCENSIA AUTODISC ,ONE TOUCH ULTRA TEST ) strip to the pharmacy but the pt needs the new matching glucometer and lancets as none of these supplies fit the old meter. Pt states that she has not been able to test her blood sugar since 07-16-23. Please expedite to [facility] [address] [place] [address] - [address] [place] [address] DRIVE If the patient is having a problem with taking the med - how long has the problem been going on? N/A documented in this encounter Plan of Treatment Not on file documented as of this encounter Visit Diagnoses Diagnosis Controlled type 2 diabetes mellitus with diabetic nephropathy, without long-term current use of insulin (HCC)- Primary documented in this encounter Care Teams Real Estate Consultant Relationship Specialty Start Date End Date Joel Collado MD [address] [place] [address] PCP - General Internal Medicine 12/12/19 Ratna Brannon MD [address] [place] [address] Obstetrics/Gynecology 11/03/22 documented as of this encounter
--- OUTSIDE RECORDS SUMMARY | 2024-05-17 14:27 | XMS_ITS | Encounter Summary ---
Author Organization [facility] Address [address] [place] [address] Care Team Providers Care Lab Animal Technician Name Role Phone Joel Collado MD Primary Care Provider [phone] Ratna Brannon MD Unavailable Unavailable Encounter Details Date Type Department Care Team Description 02/18/2021 Pt. Non Urgent Medical Question Pulmonology - [place] [address] [facility] [address] [place] [phone] Carie Nance, [facility] [address] [place], [place] [phone] Social History Tobacco Use Types Packs/Day Years [...] have Coronavirus / COVID-19? No / Unsure 01/27/2021 12:48 PM EST documented as of this encounter Miscellaneous Notes * Telephone Encounter - Maranda Gregoriosheri - 02/18/2021 3:39 PM ESTFrom: Maria Luisa Mukherjee To: Alber Nance Sent: 02/18/2021 2:13 PM EST Subject: Allergies medicine Allergies medicine She???s putting me back on the allergy medicine loratadine starting today documented in this encounter Plan of Treatment Not on file documented as of this encounter Visit Diagnoses Not on filedocumented in this encounter Care Teams Lab Animal Technician Relationship Specialty Start Date End Date Joel Collado MD [address] [place] [address] PCP - General Internal Medicine 12/12/19 Ratna Brannon MD [address] [place] [address] Obstetrics/Gynecology 11/03/22 documented as of this encounter
--- OUTSIDE RECORDS SUMMARY | 2024-05-17 14:27 | XMS_ITS | Encounter Summary ---
Author Organization [facility] Address [address] [place] [address] Care Team Providers Care Solar Installer Name Role Phone Joel Collado MD Primary Care Provider [phone] Ratna Brannon MD Unavailable Unavailable Encounter Details Date Type Department Care Team Description 08/06/2023 Pt. Non Urgent Medical Question Pulmonology - [place] [address] [facility] [address] [place] [phone] Jacqui Cuellar APRN [address] [facility] [address] [place] [phone] Social History Tobacco Use Types Packs/Day Years [...] encounter Miscellaneous Notes * Telephone Encounter - Lisa Ro - 08/06/2023 2:15 PM EDTFrom: Maria Luisa Mukherjee To: Anna Cuellar Sent: 08/06/2023 8:54 AM EDT Subject: CPAP Do you know which company will take my insurance I think [employer] takes my insurance well, I get a newmachine. Also, I know my supply I got now is getting old. documented in this encounter Plan of Treatment Not on file documented as of this encounter Visit Diagnoses Not on filedocumented in this encounter Care Teams Solar Installer Relationship Specialty Start Date End Date Joel Collado MD [address] [place] [address] PCP - General Internal Medicine 12/12/19 Rtana Brannon MD [address] [place] [address] Obstetrics/Gynecology 11/03/22 documented as of this encounter
--- OUTSIDE RECORDS SUMMARY | 2024-05-17 14:27 | XMS_ITS | Encounter Summary ---
Author Organization [facility] Address [address] [place] [address] Care Team Providers Care Electrolysis Needle Operator Name Role Phone Joel Collado MD Primary Care Provider [phone] Ratna Brannon MD Unavailable Unavailable Reason for Visit * Reason Onset Date Comments Faxed Order 05/30/2021 [facility] physician summary form Encounter Details Date Type Department Care Team Description 05/30/2021 Telephone Adult Medicine [address] [address] Joel Collado MD [address] [place] [address] Faxed Order ([facility] physician summary form) Social History Tobacco Use Types Packs/Day Years [...] suspected to have Coronavirus/COVID-19? No / Unsure 05/06/2021 7:59 AM EDT documented as of this encounter Miscellaneous Notes * Telephone Encounter - Sloane Gerber - 05/30/2021 11:57 AM EDT Faxed order recived from [facility] physician summary form, Please review, sign, date, and fax back Placed in Doctors bin documented in this encounter Plan of Treatment Not on file documented as of this encounter Visit Diagnoses Not on filedocumented in this encounter Care Teams Electrolysis Needle Operator Relationship Specialty Start Date End Date Joel Collado MD [address] [place] [address] PCP - General Internal Medicine 12/12/19 Ratna Brannon MD [address] [place] [address] Obstetrics/Gynecology 11/03/22 documented as of this encounter
--- OUTSIDE RECORDS SUMMARY | 2024-05-17 14:27 | XMS_ITS | Encounter Summary ---
Author Organization [facility] Address [address] [place] [address] Care Team Providers Care Java Developer Architect Name Role Phone Carmen Skelton MD Primary Care Provider [phone] Joel Collado MD Primary Care Provider [phone] Ratna Brannon MD Unavailable Unavailable Encounter Details Date Type Department Care Team Description 11/30/2016 Patient Care Specialist Report Medical Records [address] [place] [address] Naty Machado PA-C [address] [phone] Social History Tobacco Use Types Packs/Day Years [...] on filedocumented in this encounter Care Teams Java Developer Architect Relationship Specialty Start Date End Date Carmen Skelton MD [address] [place] [address] PCP - General Internal Medicine 05/30/15 12/11/19 Joel Collado MD [address] [place] [address] PCP - General Internal Medicine 12/12/19 Ratna Brannon MD [address] [place] [address] Obstetrics/Gynecology 11/03/22 documented as of this encounter
--- OUTSIDE RECORDS SUMMARY | 2024-05-17 14:27 | XMS_ITS | Encounter Summary ---
Author Organization [facility] Address [address] [place] [address] Care Team Providers Care Physician Relations Manager Name Role Phone Joel Collado MD Primary Care Provider [phone] Ratna Brannon MD Unavailable Unavailable Reason for Visit * Reason Comments E-prescribe Rx Request Encounter Details Date Type Department Care Team Description 02/22/2021 Refill Adult Medicine B - [address] [address] Joel Collado MD [address] [place] [address] E-prescribe Rx Request Social History Tobacco Use [...] encounter Miscellaneous Notes * Telephone Encounter - Elle Carreon M.A. - 02/24/2021 12:09 PM EST Date of last office visit was 01/27/21. Pended appt for 06/27/21 Lab Results Component Value Date NA 140 10/24/2020 K 4.2 10/24/2020 CO2 27 10/24/2020 CL 109 10/24/2020 BUN 13 10/24/2020 CREAT 1.03 10/24/2020 GLU 115 10/24/2020 CA 8.6 10/24/2020 GFR 54 10/24/2020 * Telephone Encounter - Chen Berger - 02/24/2021 12:05 PM EST Patient would like script to be: E-PRESCRIBED/FAXED TO PHARMACY WHEN WAS THE PATIENT'S LAST APPOINTMENT IN ADULT MEDICINE? 01/27/2021 WHEN WAS THE LAST TIME THE PATIENT SAW THEIR PCP? Same as above Does patient have an upcoming appointment? No (THE MEDICATION REQUESTED IS ON THE MED [...] / Plan: [place] / Product Type: MEDICARE [id number] documented in this encounter Plan of Treatment Not on file documented as of this encounter Visit Diagnoses Not on filedocumented in this encounter Care Teams Physician Relations Manager Relationship Specialty Start Date End Date Joel Collado MD [address] [place] [address] PCP - General Internal Medicine 12/12/19 Ratna Brannon MD [address] [place] [address] Obstetrics/Gynecology 11/03/22 documented as of this encounter
--- OUTSIDE RECORDS SUMMARY | 2024-05-17 14:27 | XMS_ITS | Encounter Summary ---
Author Organization [facility] Address [address] [place] [address] Care Team Providers Care Longitudinal Float Operator Name Role Phone Joel Collado MD Primary Care Provider [phone] Ratna Brannon MD Unavailable Unavailable Reason for Visit * Reason Onset Date Comments other 03/09/2023 Encounter Details Date Type Department Care Team Description 03/09/2023 Telephone Adult Medicine [address] [address] Joel Collado MD [address] [place] [address] other Social History Tobacco Use Types Packs/Day Years [...] encounter Miscellaneous Notes * Telephone Encounter - Talya Chandra R.N. - 03/09/2023 10:52 AM EST Spoke with patient currently having symptoms , headache, facial numbness heaviness in arm. This automobile and property underwriter offered to call an ambulance patient decided to call on her own and go to ER she will go to [facility]. FYI * Telephone Encounter - Edenilsonestefania Samanthaus - 03/09/2023 10:46 AM EST Symptoms patient is presenting: patient believes she had a small TIA, face in pain and arm feels heavy For ALL patients calling to schedule any appointment (routine, sick visit, follow up, consult, etc.) in the outpatient setting please ask the following questions: ?? Do you have fever of higher than 101, sore throat with difficulty swallowing or severe shortnessof breath? NO If YES to any of these above symptoms, send a message to triage and do not book. Red dot. If no, an audio or video visit should be booked. ?? Have you had close contact with someone with Coronavirus in the last 14 days? NO ?? Have you traveled abroad? NO ?? Have you traveled recently to another state outside of [place], [place], [place], [place], [place], [place], [place]? NO o If yes, did you quarantine for 14 days or have a negative covid test? NO If yes to any of the above, patient is not to be scheduled in office until after 14 day quarantine or negative covid test. If pain or injury related was it due to an accident at work or from a motor vehicle accident? NO If yes, gather 3rd alliance party insurance information Date of accident/Injury: N/A How long has patient had these symptoms?: yesterday PCP: Joel Collado Payor: MEDICARE-[place] / Plan: [place] / Product Type: MEDICARE [id number] documented in this encounter Plan of Treatment Not on file documented as of this encounter Visit Diagnoses Not on filedocumented in this encounter Care Teams Longitudinal Float Operator Relationship Specialty Start Date End Date Joel Collado MD [address] [place] [address] PCP - General Internal Medicine 12/12/19 Ratna Brannon MD [address] [place] [address] Obstetrics/Gynecology 11/03/22 documented as of this encounter
--- OUTSIDE RECORDS SUMMARY | 2024-05-17 14:27 | XMS_ITS | Encounter Summary ---
Author Organization [facility] Address [address] [place] [address] Care Team Providers Care Teacher Cclc Name Role Phone Carmen Skelton MD Primary Care Provider Joel Collado MD Primary Care Provider [phone] Ratna Brannon MD Unavailable Unavailable Encounter Details Date Type Department Care Team Description 04/10/2019 Hospital Medical Records [address] [place] [address] Dangelo Bush MD Social History Tobacco Use Types Packs/Day [...] on filedocumented in this encounter Care Teams Teacher Cclc Relationship Specialty Start Date End Date Carmen Skelton MD [address] [place] [address] PCP - General Internal Medicine 05/30/15 12/11/19 Joel Collado MD [address] [place] [address] PCP - General Internal Medicine 12/12/19 Ratna Brannon MD [address] [place] [address] Obstetrics/Gynecology 11/03/22 documented as of this encounter
--- OUTSIDE RECORDS SUMMARY | 2024-05-17 14:27 | XMS_ITS | Encounter Summary ---
Author Organization [facility] Address [address] [place] [address] Care Team Providers Care Operator Engineer Name Role Phone Carmen Skelton MD Primary Care Provider [phone] Joel Collado MD Primary Care Provider [phone] Ratna Brannon MD Unavailable Unavailable Encounter Details Date Type Department Care Team Description 06/02/2017 [facility] Medical Records [address] [place] [address] Abstract, Provider Social History Tobacco Use Types [...] on filedocumented in this encounter Care Teams Operator Engineer Relationship Specialty Start Date End Date Carmen Skelton MD [address] [place] [address] PCP - General Internal Medicine 05/30/15 12/11/19 Joel Collado MD [address] [place] [address] PCP - General Internal Medicine 12/12/19 Ratna Brannon MD [address] [place] [address] Obstetrics/Gynecology 11/03/22 documented as of this encounter
--- OUTSIDE RECORDS SUMMARY | 2024-05-17 14:27 | XMS_ITS | Encounter Summary ---
Author Organization [facility] Address [address] [place] [address] Care Team Providers Care Egg Setter Name Role Phone Carmen Skelton MD Primary Care Provider [phone] Joel Collado MD Primary Care Provider [phone] Ratna Brannon MD Unavailable Unavailable Reason for Visit * Reason Onset Date Comments other 12/28/2016 Encounter Details Date Type Department Care Team Description 12/28/2016 Telephone Podiatry - [place] [address] [place] [address] Christopher Barajas, DPM other Social History Tobacco Use Types Packs/Day [...] encounter Miscellaneous Notes * Telephone Encounter - Sophia Chris M.A. - 12/28/2016 11:36 AM EST Pt will be seen today here in our office * Telephone Encounter - Mary Gallo - 12/28/2016 10:32 AM EST Ariel PT called to inform Dr Barajas that patients ankle is doing worst. Will be seen today at 2:15 documented in this encounter Plan of Treatment Not on file documented as of this encounter Visit Diagnoses Not on filedocumented in this encounter Care Teams Egg Setter Relationship Specialty Start Date End Date Carmen Skelton MD [address] [place] [address] PCP - General Internal Medicine 05/30/15 12/11/19 Joel Collado MD [address] [place] [address] PCP - General Internal Medicine 12/12/19 Ratna Brannon MD [address] [place] [address] Obstetrics/Gynecology 11/03/22 documented as of this encounter
--- OUTSIDE RECORDS SUMMARY | 2024-05-17 14:27 | XMS_ITS | Encounter Summary ---
Author Organization [facility] Address [address] [place] [address] Care Team Providers Care Senior Product Development Manager Name Role Phone Joel Collado MD Primary Care Provider [phone] Ratna Brannon MD Unavailable Unavailable Encounter Details Date Type Department Care Team Description 07/28/2023 Orders Only [facility] Lung Screening Program [place] [address] [facility] [address] [place] [address] Phil Weems MD [address] [facility] [place] [address] [place] [address] Former smoker Social History Tobacco Use Types Packs/Day Years [...] CT LOW DOSE LUNG SCREEN ANNUAL Routine 07/27/2023 Former smoker documented in this encounter Results * CT LOW DOSE LUNG SCREEN ANNUAL (07/27/2023) Phil Weems MD CT SCANS documented in this encounter Visit Diagnoses Diagnosis Former smoker Personal history of tobacco use, presenting hazards to health documented in this encounter Care Teams Senior Product Development Manager Relationship Specialty Start Date End Date Joel Collado MD [address] [place] [address] PCP - General Internal Medicine 12/12/19 Ratna Brannon MD [address] [place] [address] Obstetrics/Gynecology 11/03/22 documented as of this encounter
--- OUTSIDE RECORDS SUMMARY | 2024-05-17 14:27 | XMS_ITS | Encounter Summary ---
Author Organization [facility] Address [address] [place] [address] Care Team Providers Care Senior Instructor Name Role Phone Carmen Skelton MD Primary Care Provider [phone] Joel Collado MD Primary Care Provider [phone] Ratna Brannon MD Unavailable Unavailable Encounter Details Date Type Department Care Team Description 04/09/2019 Hospital Medical Records [address] [place] [address] Social History Tobacco Use Types Packs/Day Years [...] on filedocumented in this encounter Care Teams Senior Instructor Relationship Specialty Start Date End Date Carmen Skelton MD [address] [place] [address] PCP - General Internal Medicine 05/30/15 12/11/19 Joel Collado MD [address] [place] [address] PCP - General Internal Medicine 12/12/19 Ratna Brannon MD [address] [place] [address] Obstetrics/Gynecology 11/03/22 documented as of this encounter
--- OUTSIDE RECORDS SUMMARY | 2024-05-17 14:27 | XMS_ITS | Encounter Summary ---
Author Organization [facility] Address [address] [place] [address] Care Team Providers Care Curtains And Draperies Salesperson Name Role Phone Joel Collado MD Primary Care Provider [phone] Ratna Brannon MD Unavailable Unavailable Encounter Details Date Type Department Care Team Description 09/19/2021 Business Doc Medical Records [address] [place] [address] Abstract, Provider Social History Tobacco Use Types [...] on filedocumented in this encounter Care Teams Curtains And Draperies Salesperson Relationship Specialty Start Date End Date Joel Collado MD [address] [place] [address] PCP - General Internal Medicine 12/12/19 Ratna Brannon MD [address] [place] [address], [place] [address] Obstetrics/Gynecology 11/03/22 documented as of this encounter
--- OUTSIDE RECORDS SUMMARY | 2024-05-17 14:27 | XMS_ITS | Encounter Summary ---
Author Organization [facility] Address [address] [place] [address] Care Team Providers Care Digital Media Manager Name Role Phone Carmen Skelton MD Primary Care Provider [phone] Joel Collado MD Primary Care Provider [phone] Ratna Brannon MD Unavailable Unavailable Encounter Details Date Type Department Care Team Description 08/20/2016 Biomedical Engineering Director Report Medical Records [address] [place] [address] Chase Bae Social History Tobacco Use Types Packs/Day Years [...] on filedocumented in this encounter Care Teams Digital Media Manager Relationship Specialty Start Date End Date Carmen Skelton MD [address] [place], [place] [phone] PCP - General Internal Medicine 05/30/15 12/11/19 Joel Collado MD [address] [place] [address] [phone] PCP - General Internal Medicine 12/12/19 Ratna Brannon MD [address] [place] [address] Obstetrics/Gynecology 11/03/22 documented as of this encounter
--- OUTSIDE RECORDS SUMMARY | 2024-05-17 14:27 | XMS_ITS | Encounter Summary ---
Author Organization [facility] Address [address] [place] [address] Care Team Providers Care Vp Client Services Name Role Phone Joel Collado MD Primary Care Provider [phone] Ratna Brannon MD Unavailable Unavailable Encounter Details Date Type Department Care Team Description 07/23/2023 Pt. Non Urgent Medical Question Pulmonology - [place] [address] [facility] [address] [place] [phone] Jacqui Cuellar APRN [address] [facility] [address] [place] [phone] Social History Tobacco Use Types Packs/Day Years [...] * Telephone Encounter - Lisa Ro - 07/23/2023 11:40 AM EDTFrom: Maria Luisa Mukherjee To: Anna Cuellar Sent: 07/23/2023 10:52 AM EDT Subject: CPAP machine. Am I getting a new machine also documented in this encounter Plan of Treatment Not on file documented as of this encounter Visit Diagnoses Not on filedocumented in this encounter Care Teams Vp Client Services Relationship Specialty Start Date End Date Joel Colldao MD [address] [place] [address] PCP - General Internal Medicine 12/12/19 Ratna Brannon MD [address] [place] [address] Obstetrics/Gynecology 11/03/22 documented as of this encounter
--- OUTSIDE RECORDS SUMMARY | 2024-05-17 14:27 | XMS_ITS | Encounter Summary ---
Author Organization [facility] Address [address] [place] [address] Care Team Providers Care Sewer And Inspector Name Role Phone Carmen Skelton MD Primary Care Provider [phone] Joel Collado MD Primary Care Provider [phone] Ratna Brannon MD Unavailable Unavailable Encounter Details Date Type Department Care Team Description 02/22/2019 Business Doc Medical Records [address] [place] [address] Abstract, Provider Social History Tobacco Use Types [...] on filedocumented in this encounter Care Teams Sewer And Inspector Relationship Specialty Start Date End Date Carmen Skelton MD [address] [place] [address] PCP - General Internal Medicine 05/30/15 12/11/19 Joel Collado MD [address] [place] [address] PCP - General Internal Medicine 12/12/19 Ratna Brannon MD [address] [place] [address] Obstetrics/Gynecology 11/03/22 documented as of this encounter
--- OUTSIDE RECORDS SUMMARY | 2024-05-17 14:27 | XMS_ITS | Encounter Summary ---
Author Organization [facility] Address [address] [place] [address] Care Team Providers Care Floral Associate Name Role Phone Joel Collado MD Primary Care Provider [phone] Ratna Brannon MD Unavailable Unavailable Encounter Details Date Type Department Care Team Description 01/05/2023 Telephone Gastroenterology - [place] [address] [facility] [address] [place] [address] Melanie Dolan DScPAS Social History Tobacco Use Types Packs/Day Years [...] encounter Miscellaneous Notes * Telephone Encounter - Shannon Sierra C.M.A. - 01/05/2023 11:31 AM EST Patient is scheduled for a barium swallow on Mar 03 arrival time is 8:45 am please head to Patient registration, nothing to eat ot drink after midnight. This is over at [facility] documented in this encounter Plan of Treatment Not on file documented as of this encounter Visit Diagnoses Not on filedocumented in this encounter Care Teams Floral Associate Relationship Specialty Start Date End Date Joel Collado MD [address] [place] [address] PCP - General Internal Medicine 12/12/19 Ratna Brannon MD [address] [place] [address] Obstetrics/Gynecology 11/03/22 documented as of this encounter
--- OUTSIDE RECORDS SUMMARY | 2024-05-17 14:27 | XMS_ITS | Encounter Summary ---
Author Organization [facility] Address [address] [place] [address] Care Team Providers Care Stevedoring Supervisor Name Role Phone Joel Collado MD Primary Care Provider [phone] Ratna Brannon MD Unavailable Unavailable Encounter Details Date Type Department Care Team Description 05/28/2021 Pt. Non Urgent Medic al Question OBGYN - [place] [address] [place] [address] Krys Esposito, Social History Tobacco Use Types Packs/Day Years [...] encounter Miscellaneous Notes * Telephone Encounter - Kennedi Mcnulty R.N. - 05/28/2021 10:28 AM EDTFrom: Maria Luisa Mukherjee To: Rhiannon Esposito Sent: 05/28/2021 9:39 AM EDT Subject: Appointments Do I need a doctors appointment with you because you told me two years because you won???t renew myscript documented in this encounter Plan of Treatment Not on file documented as of this encounter Visit Diagnoses Not on filedocumented in this encounter Care Teams Stevedoring Supervisor Relationship Specialty Start Date End Date Joel Collado MD [address] [place] [address] PCP - General Internal Medicine 12/12/19 Ratna Brannon MD [address] [place] [address] Obstetrics/Gynecology 11/03/22 documented as of this encounter
--- OUTSIDE RECORDS SUMMARY | 2024-05-17 14:28 | XMS_ITS | Encounter Summary ---
Author Organization [facility] Address [address] [place] [address] Care Team Providers Care Floor Supervisor Name Role Phone Joel Collado MD Primary Care Provider [phone] Ratna Brannon MD Unavailable Unavailable Reason for Visit * Reason Onset Date Comments refill request 12/03/2023 Encounter Details Date Type Department Care Team Description 12/03/2023 Refill Pulmonology - [place] [address] [facility] [address] [place] [phone] Jacqui Cuellar APRN 175 [facility] [address] [place] [phone] refill request Social History Tobacco Use Types [...] encounter Miscellaneous Notes * Telephone Encounter - Joaquin Devine - 12/03/2023 10:36 AM EDT NOV- 01/05/24 STANLEY- 07/05/23 documented in this encounter Plan of Treatment Not on file documented as of this encounter Visit Diagnoses Diagnosis MARINO and COPD overlap syndrome (HCC) Centrilobular emphysema (HCC) Other emphysema Follow up at [facility] for screening for malignant neoplasm of lung Pulmonary nodules Other nonspecific abnormal finding of lung field MARINO (obstructive sleep apnea) Obstructive sleep apnea (adult) (pediatric) Chronic idiopathic granulomatous disease (HCC) Fibromyalgia Mylagia and myositis, unspecified Chronic obstructive pulmonary disease, unspecified COPD type (HCC) documented in this encounter Care Teams Floor Supervisor Relationship Specialty Start Date End Date Joel Collado MD [address] [place] [address] PCP - General Internal Medicine 12/12/19 Ratna Brannon MD [address] [place] [address] Obstetrics/Gynecology 11/03/22 documented as of this encounter
--- OUTSIDE RECORDS SUMMARY | 2024-05-17 14:28 | XMS_ITS | Clinical Summary ---
Author Organization [facility] Address [address] [place] [address] Care Team Providers Care Orthopedic Rn Name Role Phone Joel Collado MD Primary Care Provider [phone] Ratna Brannon MD Unavailable Unavailable Allergies Active Allergy Reactions Severity Noted Date Comments Umeclidinium [place] 12/17/2016 Throat tightness Medications Medication Sig Dispensed Refills Start Date End Date Status citalopram (CELEXA) 20 MG tablet 0 12/25/2019 Active nortriptyline (PAMELOR) 50 MG capsule TAKE 1 CAPSULE BY MOUTH EVERYDAY AT BEDTIME 0 02/13/2022 Active Incontinence Supply Disposable (Depend Pant Extra Large) Misc Depends silhouette L-XL Use 2-3 times daily for Incontinence Indefinite Use Dx; R32, E11.29, N18.39 100 Each 11 02/27/2022 Active ropinirole (REQUIP) 0.25 MG tabletIndications:R LS (restless legs syndrome) Take 2 Tablets by mouth 3 times daily. 0 11/23/2022 Active Diclofenac Sodium 1 % Gel Apply 4 g topically 2 times daily. 100 g 2 03/25/2023 Active topiramate (TOPAMAX) 100 MG tablet Take 1 Tablet by mouth. 0 03/09/2023 Active Nurtec 75 MG TABLET DISPERSIBLE 0 03/31/2023 Active gabapentin (NEURONTIN) 100 MG capsule Take 3 Capsules by mouth at bedtime. 0 03/09/2023 Active buPROPion (WELLBUTRIN) 100 MG tablet Take 1 Tablet by mouth 2 times daily. 0 Active docusate sodium (COLACE) 100 MG capsule Take 1 Capsule by mouth 2 times daily as needed for Constipation. 180 Capsule 1 06/16/2023 Active rosuvastatin (CRESTOR) 40 MG tablet @@TAKE 1 TABLET BY MOUTH DAILY. 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 56 Tablet 5 08/17/2023 Active metformin (GLUCOPHAGE) 500 MG tablet TAKE 1 TABLET BY MOUTH DAILY IN THE MORNING. 28 Tablet 5 08/17/2023 Active omeprazole (PRILOSEC) 20 MG capsule TAKE 2 CAPSULES BY MOUTH DAILY. 56 Capsule 5 08/17/2023 Active losartan (COZAAR) 100 MG tablet TAKE 1 TABLET BY MOUTH DAILY 28 Tablet 5 08/17/2023 Active alendronate (FOSAMAX) 70 MG tablet TAKE 1 TABLET BY MOUTH EVERY 7 DAYS ON AN EMPTY STOMACH WITH 8 OUNCES OF WATER. NO FOOD/DRINK FOR 30 MINUTES AFTER. 4 Tablet 5 08/17/2023 Active OneTouch Ultra Test strip USE TO TEST BLOOD SUGAR TWICE DAILY. 100 Strip 5 09/14/2023 Active D3-1000 25 MCG (1000 UT) CapIndications:Stag e 3a chronic kidney disease (HCC) TAKE 1 TABLET BY MOUTH DAILY. 28 Capsule 3 11/09/2023 Active docusate sodium (Colace) 100 MG capsule Take 1 Capsule by mouth 2 times daily for 30 days. 180 Capsule 1 11/25/2023 Active amlodipine (NORVASC) 10 MG tablet Take 1 Tablet by mouth daily. 28 Tablet 5 12/03/2023 Active aspirin (Aspirin Low Dose) 81 MG EC tablet Take 1 Tablet by mouth daily. 28 Tablet 5 12/03/2023 Active estradiol (ESTRACE) 0.1 MG/GM vaginal cream Use 1-2 grams weekly vaginally 42.5 g 0 12/03/2023 Active Ventolin HFA 108 (90 Base) MCG/ACT Aero SolnIndications:MARINO and COPD overlap syndrome (HCC),Centrilobular emphysema (HCC),Encounter for screening for malignant neoplasm of lung,Pulmonary nodules,MARINO (obstructive sleep apnea),Chronic idiopathic granulomatous disease (HCC),Fibromyalgia Inhale 2 Puffs into the lungs 4 times daily as needed for Wheezing or Shortness of Breath. 18 g 0 12/03/2023 Active loratadine (CLARITIN) 10 MG tabletIndications:C entrilobular emphysema (HCC) Take 1 Tablet by mouth daily. 90 Tablet 1 12/03/2023 Active Budeson-Glycopyrrol -Formoterol (Breztri Aerosphere) 160-9-4.8 MCG/ACT AerosolIndications: Centrilobular emphysema (HCC),MARINO and COPD overlap syndrome (HCC) Inhale 2 Puffs into the lungs 2 times daily. 32.1 g 3 12/03/2023 Active albuterol (PROVENTIL) (2.5 MG/3ML) 0.083% nebulizer solutionIndications :MARINO and COPD overlap syndrome (HCC),Centrilobular emphysema (HCC),Chronic obstructive pulmonary disease, unspecified COPD type (HCC) Take 1 Vial by nebulization every 4 hours as needed for Wheezing, Shortness of Breath or Cough. 1080 mL 1 12/03/2023 Active Active Problems Problem Noted Date Primary osteoarthritis of left knee 05/17 Primary osteoarthritis of right knee Morbid obesity 04/05/2023 Tension headache 03/18/2023 Type 2 diabetes mellitus, controlled, wi th renal complications 05/20/2021 Chronic foot pain, right 06/18/2020 Stage 3a chronic kidney disease 12/04/19 TIA (transient ischemic attack) 04/17/19 Overview: Left facial numbness, arm weakness 04/06 Left shoulder tendinitis 12/02/2018 Rotator cuff tendinitis, left 10/21/2018 Cervical spondylosis without myelopathy 10/21/2018 Pulmonary nodules 08/26/2018 MARINO and COPD overlap syndrome 08/26/2018 Chronic obstructive pulmonary disease Morbid obesity with BMI of 40.0-44.9, ad ult 08/19/2017 IBS (irritable bowel syndrome) 8 Obstructive sleep apnea moderate AHI 19 01/21/2017 Overview: SMS treatment Polysomnogram: Date 01/21/2023; Wt 220#; BMI 40.24; SE 92%; SM 94%; REM 13%; CPAP @6 10- 12 cm: AHI 3, REM AHI 2, Central apneas 9; Obstructive apneas 0; Mixed apneas 0; hypopneas 13; average oxygen saturation 94% (lowest 88%); PL~11 SMS Home Sleep Apnea Test: Date 08/11/2019; BMI 24 ; AHI 19; average oxygen saturation 95% (lowest 70% with saturations <88% for 5% or more of study) - Obstructive Sleep Apnea - moderate; with sleep related hypoventilation by 2019 home sleep apnea test. Last Assessment & Plan: Life supply CPAP 4 to 11 cm changed to CPAP 12 Thoracic degenerative disc disease 01/16 Esophageal dysmotility 12/27/2015 Fibromyalgia 07/11/2015 PTSD (post-traumatic stress disorder) Tremor 06/12/2015 Overview: Follows with neurology (jailene) GERD (gastroesophageal reflux disease) 0 04/18/2014 HTN (hypertension), benign 02/28/2014 Hyperlipidemia 02/28/2014 Depression, major, in partial remission 02/28/2014 Anxiety 02/28/2014 Osteoporosis 02/28/2014 Overview: 08/30 T score spine -1.3 hip -1.1 FRAX score 9.8% 10 year fracture risk 03/06 T score spine -1.7 hip -1.0 FRAX score 20% 10 year fracture risk OAB (overactive bladder) 02/28/2014 Resolved Problems Problem Noted Date Resolved Date Prediabetes 05/07/2022 11/03/2022 COVID-19 virus infection- po s test at urgent care of [place] on November 05, 2021 11/07/2021 11/03/2022 Myofascial pain on left side 10/21/2018 Follow up at [facility] for screeni ng for malignant neoplasm of lung 08/26/2018 09/14/2018 MARINO (obstructive sleep apnea) 08/26/2018 MARINO and COPD overlap syndrome 02/24/2018 Former smoker 08/25/2017 06/16/2018 Abnormal PFTs (pulmonary function tests) 018 06/16/2018 Nocturnal hypoxia 08/25/2017 11/03/2022 High triglycerides 06/21/2017 06/13/2018 History of foot surgery 06/09/2017 11/04/19 23 Overview: - Right ankle stabilization and peroneal tendon repair 06/04/17 Dr Barajas Right rotator cuff tear 01/21/2016 11/04/19 23 Overview: Partial tear s/p repair 03/12/[address] Declan Haynes Heartburn 02/28/2014 12/21/2017 Immunizations Name Administration Dates Next Due COVID-19 (Moderna) PT Reported 02/13/2021,2020,05/02/2020 Influenza (> 6 Months) 12/19/2020,2019,12/27/2013,02/15 Influenza Flu (PT Reported) 12/06/2015 Influenza Vaccine-preservati ve Free-quadrivalent 4 Years 11/04/2017 Influenza Vaccine-quadrivale nt 4 Years Plus 12/17/2016 Influenza vaccine high dose age 65 and over 11/25/2023,11/03/2022 PREVNAR 20 11/03/2022 Pneumoccoccal(Adult) Polysac charide PPSV23 04/24/2012 Shingrix (Recombinant zoster vaccine) 12/30/2018 ,09/23/2018 TD (STATE SUPPLIED FOR ADULT S AND CHILDREN) 02/15/2005 Tdap 06/12/2015 Family History Medical History Relation Name Comments Cancer of the Lung Brother esophagea l cancer Alcohol Abuse Daughter Emphysema Father [place], prostate ca ncer [place] Breast Mother Dementia Mother hypertension, b reast cancer, cervical cancer Cancer of the Lung Sister also lymp radhika Relation Name Status Comments Brother Daughter Father Mother Sister Social History Tobacco Use Types Packs/Day Years Used Date Smoking Tobacco: Former Cigarettes Q uit: 02/04/2016 Passive Smoke Exposure: Past Smokeless Tobacco: Never Tobacco Cessation:Counseling Given: Not Answered Alcohol Use Standard Drinks/Week Comments Yes 0 (1 standard drink = 0.6 oz pure alcohol) history alcohol abuse; occasionally Sex Assigned at Date Recorded Female 03/16/2023 7:[address] Job Start Date Occupation Industry Not on file Not on file Not on file Last Filed Vital Signs Vital Sign Reading Time Taken Comments Blood Pressure 124/74 11/25/2023 8:00 AM EDT Pulse 90 11/25/2023 8:00 AM EDT Temperature 36.5 ??C (97.7 ??F) 11/25/2023 8:00 AM ED T Respiratory Rate 16 07/05/2023 8:53 AM EDT Oxygen Saturation 98% 07/05/2023 8:53 AM EDT Inhaled Oxygen Concentration - - Weight 103.9 kg (229 lb 1.6 oz) 11/25/2023 8:00 AM EDT Height 157.5 cm (5' 2 ) 11/25/2023 8:00 AM EDT Body Mass Index 41.9 11/25/2023 8:00 AM EDT Plan of Treatment Health Maintenance Due Date Last Done Comments DIABETES: ANNUAL EYE EXAM 05/16/20222021, 05/16/2021 (External Completion) Covid-19 Vaccine (2022-03 4 season) 2023 02/13/2021, 05/30/2020, 05/02/2020 DIABETES: ANNUAL FOOT EXAM 11/04/2023 11/03/2022 BMI CHECK/ADVISE 02/16/2024 07/05/2023, 03/2023, 04/05/2023, Additional history exists DEPRESSION SCREEN 02/17/2024 02/16/2023, , 12/25/2019 (Completed), Additional history exists FALL RISK ASSESSMENT 02/17/2024 02/16/2023, 01/22/2023 (Completed), 02/02/2022 DIABETES: BLOOD SUGAR CONTRO L TEST (HGBA1C) 02/25/2024 11/25/2023, 02/16/2023, 11/03/2022, Additional history exists MAMMOGRAM 10/06/2024 10/07/2023, 0809/2022, 09/18/2021, Additional history exists DIABETES/HEART DISEASE: JOSE SANDOVAL CHOLESTEROL (LDL) 11/24/2024 11/25/2023, 11/03/2022, 05/07/2022, Additional history exists DIABETES: ANNUAL URINE PROTE IN TEST (MICROALBUMIN) 11/24/2024 11/25/2023, 11/03/2022, 05/07/2022, Additional history exists BONE DENSITY SCREENING 01/15/2025 , 02/20/2019, 08/21/2015 DTAP/TDAP/TD (2 - Td or Tdap) 06/11/2025 06/12/2015, 02/15/2005 COLON CANCER SCREENING 01/07/2032 , 06/06/2013 (External Completion) HEPATITIS C SCREENING Completed 05/22/2016, 016 SHINGLES VACCINE Completed 12/30/2018, 09/23/2018 PNEUMOCOCCAL VACCINE Completed 11/03/2022, 04/25/19 13 INFLUENZA Completed 11/25/2023, 10/16, 12/19/2020, Additional history exists Care Teams Orthopedic Rn Relationship Specialty Start Date End Date Joel Collado MD [address] [place] [phone] PCP - General Internal Medicine 12/12/19 Ratna Brannon MD [address] [place] [address] Obstetrics/Gynecology 11/03/22
--- OUTSIDE RECORDS SUMMARY | 2024-05-17 14:28 | XMS_ITS | Encounter Summary ---
Author Organization [facility] Address [address] [place] [address] Care Team Providers Care Math Instructor Name Role Phone Carmen Skelton MD Primary Care Provider [phone] Joel Collado MD Primary Care Provider [phone] Ratna Brannon MD Unavailable Unavailable Encounter Details Date Type Department Care Team Description 07/25/2019 Cloth Examiner Hand Report Medical Records [address] [place] [id number] [place] [address] Social History Tobacco Use Types Packs/Day Years [...] on filedocumented in this encounter Care Teams Math Instructor Relationship Specialty Start Date End Date Carmen Skelton MD [address] [place] [address] PCP - General Internal Medicine 05/30/15 12/11/19 Joel Collado MD [address] [place] [address] PCP - General Internal Medicine 12/12/19 Ratna Brannon MD [address] [place] [address] Obstetrics/Gynecology 11/03/22 documented as of this encounter
--- OUTSIDE RECORDS SUMMARY | 2024-05-17 14:28 | XMS_ITS | Encounter Summary ---
Author Organization [facility] Address [address] [place] [address] Care Team Providers Care Sales And Distribution Clerk Name Role Phone Carmen Skelton MD Primary Care Provider [phone] Joel Collado MD Primary Care Provider [phone] Ratna Brannon MD Unavailable Unavailable Encounter Details Date Type Department Care Team Description 09/19/2015 Night Triage Doc Medical Records [address] [place] [address] Abstract, Provider Social History Tobacco Use Types Packs/Day Years Used Date Smoking Tobacco: Former Cigarettes Smokeless Tobacco: Never Alcohol Use Standard Drinks/Week Comments Yes 0 (1 standard drink = 0.6 oz pur e alcohol) history alcohol abuse Sex Assigned at Date Recorded Female 03/16/2023 7:[address] Job Start Date Occupation Industry Not on file Not on file Not on file documented as of this encounter Plan of Treatment Not on file documented as of this encounter Visit Diagnoses Not on filedocumented in this encounter Care Teams Sales And Distribution Clerk Relationship Specialty Start Date End Date Carmen Skelton MD [address] [place] [address] PCP - General Internal Medicine 05/30/15 12/11/19 Joel Collado MD [address] [place] [address] PCP - General Internal Medicine 12/12/19 Ratna Brannon MD [address] [place] [address] Obstetrics/Gynecology 11/03/22 documented as of this encounter
--- OUTSIDE RECORDS SUMMARY | 2024-05-17 14:28 | XMS_ITS | Encounter Summary ---
Author Organization [facility] Address [address] [place] [address] Care Team Providers Care Rn Plastics Name Role Phone Carmen Skelton MD Primary Care Provider [phone] Joel Collado MD Primary Care Provider [phone] Ratna Brannon MD Unavailable Unavailable Encounter Details Date Type Department Care Team Description 02/06/2016 Hospital Medical Records [address] [place] [address] Jeannine Mackey MD [address] [place] [address] [phone] Social History Tobacco Use Types Packs/Day Years [...] on filedocumented in this encounter Care Teams Rn Plastics Relationship Specialty Start Date End Date Carmen Skelton MD [address] [place] [address] [phone] PCP - General Internal Medicine 05/30/15 12/11/19 Joel Collado MD [address] [place] [address] PCP - General Internal Medicine 12/12/19 Ratna Brannon MD [address] [place] [address] Obstetrics/Gynecology 11/03/22 documented as of this encounter
--- OUTSIDE RECORDS SUMMARY | 2024-05-17 14:28 | XMS_ITS | Encounter Summary ---
Author Organization [facility] Address [address] [place] [address] Care Team Providers Care Junior Database Administrator Name Role Phone Carmen Skelton MD Primary Care Provider [phone] Joel Collado MD Primary Care Provider [phone] Ratna Brannon MD Unavailable Unavailable Encounter Details Date Type Department Care Team Description 08/26/2015 Traffic Controller Cable Report Medical Records [address] [place] [address] Ratna Brannon MD Social History Tobacco Use Types Packs/Day Years Used Date Smoking Tobacco: Former Cigarettes Smokeless Tobacco: Former Alcohol Use Standard Drinks/Week [...] on filedocumented in this encounter Care Teams Junior Database Administrator Relationship Specialty Start Date End Date Carmen Skelton MD [address] [place] [address] PCP - General Internal Medicine 05/30/15 12/11/19 Joel Collado MD [address] [place] [address] PCP - General Internal Medicine 12/12/19 Ratna Brannon MD [address] [place] [address] Obstetrics/Gynecology 11/03/22 documented as of this encounter
--- OUTSIDE RECORDS SUMMARY | 2024-05-17 14:28 | XMS_ITS | Encounter Summary ---
Author Organization [facility] Address [address] [place] [address] Care Team Providers Care Packing Machine Pilot Can Router Name Role Phone Carmen Skelton MD Primary Care Provider [phone] Joel Collado MD Primary Care Provider [phone] Ratna Brannon MD Unavailable Unavailable Encounter Details Date Type Department Care Team Description 03/15/2018 Bad Cloth Checker Report Medical Records [address] [place] [address] Abstract, Provider Social History Tobacco Use Types [...] on filedocumented in this encounter Care Teams Packing Machine Pilot Can Router Relationship Specialty Start Date End Date Carmen Skelton MD [address] [place] [address] PCP - General Internal Medicine 05/30/15 12/11/19 Joel Collado MD [address] [place] [address] PCP - General Internal Medicine 12/12/19 Ratna Brannon MD [address] [place] [address] Obstetrics/Gynecology 11/03/22 documented as of this encounter
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
--- OUTSIDE RECORDS SUMMARY | 2024-05-17 14:28 | XMS_ITS | Encounter Summary ---
Author Organization [facility] Address [address] [place] [address] Care Team Providers Care Chalker Soles Name Role Phone Carmen Skelton MD Primary Care Provider [phone] Joel Collado MD Primary Care Provider [phone] Ratna Brannon MD Unavailable Unavailable Encounter Details Date Type Department Care Team Description 09/08/2018 Business Doc Medical Records [address] [place] [address] Abstract, Provider Social History Tobacco Use Types [...] on filedocumented in this encounter Care Teams Chalker Soles Relationship Specialty Start Date End Date Carmen Skelton MD [address] [place] [address] PCP - General Internal Medicine 05/30/15 12/11/19 Joel Collado MD [address] [place] [address] PCP - General Internal Medicine 12/12/19 Ratna Brannon MD [address] [place] [address] Obstetrics/Gynecology 11/03/22 documented as of this encounter
--- OUTSIDE RECORDS SUMMARY | 2024-05-17 14:28 | XMS_ITS | Encounter Summary ---
Author Organization [facility] Address [address] [place] [address] Care Team Providers Care Bag Washer Name Role Phone Carmen Skelton MD Primary Care Provider [phone] Joel Collado MD Primary Care Provider [phone] Ratna Brannon MD Unavailable Unavailable Encounter Details Date Type Department Care Team Description 11/24/2018 Power Saw Mechanic Report Medical Records [address] [place] [address] Rehab., Ariel Social History Tobacco Use Types Packs/Day Years [...] on filedocumented in this encounter Care Teams Bag Washer Relationship Specialty Start Date End Date Carmen Skelton MD [address] [place] [address] PCP - General Internal Medicine 05/30/15 12/11/19 Joel Collado MD [address] [place] [address] PCP - General Internal Medicine 12/12/19 Ratna Brannon MD [address] [place] [address] Obstetrics/Gynecology 11/03/22 documented as of this encounter
--- OUTSIDE RECORDS SUMMARY | 2024-05-17 14:28 | XMS_ITS | Encounter Summary ---
Author Organization [facility] Address [address] [place] [address] Care Team Providers Care Production Cell Leader Name Role Phone Carmen Skelton MD Primary Care Provider [phone] Joel Collado MD Primary Care Provider Ratna Brannon MD Unavailable Unavailable Encounter Details Date Type Department Care Team Description 01/26/2016 Transfer Records Medical Records [address] [place] [address] [facility] Social History Tobacco Use Types Packs/Day Years [...] on filedocumented in this encounter Care Teams Production Cell Leader Relationship Specialty Start Date End Date Carmen Skelton MD [address] [place] [address] PCP - General Internal Medicine 05/30/15 12/11/19 Joel Collado MD [address] [place] [address] PCP - General Internal Medicine 12/12/19 Ratna Brannon MD [address] [place] [address] Obstetrics/Gynecology 11/03/22 documented as of this encounter
--- OUTSIDE RECORDS SUMMARY | 2024-05-17 14:28 | XMS_ITS | Encounter Summary ---
Author Organization [facility] Address [address] [place] [address] Care Team Providers Care Extermination Supervisor Name Role Phone Carmen Skelton MD Primary Care Provider Joel Collado MD Primary Care Provider [phone] Ratna Brannon MD Unavailable Unavailable Reason for Visit * Reason Onset Date Comments Prior Authorization 06/19/2016 Encounter Details Date Type Department Care Team Description 06/19/2016 Telephone Adult Medicine [facility] [address] [place] [address] [phone] Carmen Skelton MD [address] [place] [address] [phone] Prior Authorization Social History Tobacco Use Types Packs/Day Years [...] encounter Miscellaneous Notes * Telephone Encounter - Catherine Pérez M.A. - 06/29/2016 1:45 PM EDT Called patient this is a plan exclusion on both plans. It is an otc product * Telephone Encounter - Sumeet Colunga - 06/24/2016 10:03 AM EDT Patient returning call, please contact at [phone] * Telephone Encounter - Catherine Pérez M.A. - 06/23/2016 10:04 AM EDT Telephone Information: Mobile Not on file. Called and left message to call the office * Telephone Encounter - Rhona Mcmullen - 06/19/2016 2:37 PM EDT Pre Authorization for Medication-do not complete and send this encounter unless you have the fax from the pharmacy. Is this a Cover My Meds request: [place] of Medication Lactobacillus-Inulin ([facility]) Cap Dose of Medication as stated above How does patient take this med? Take 1 Cap by mouth daily (with breakfast). Take 1 capsule (10 billion units) by mouth daily What Pharmacy did the fax come from: [facility] fax #: [phone] Third [employer]arian Information from fax: What Prescription Plan does the patient have? Medicare & Medicaid BIN/PCN if applicable: Cardholder ID: [id number] & [id number] Person Code: 01 Relationship Code: 1 Help desk phone: [phone] documented in this encounter Plan of Treatment Not on file documented as of this encounter Visit Diagnoses Not on filedocumented in this encounter Care Teams Extermination Supervisor Relationship Specialty Start Date End Date Carmen Skelton MD [address] [place] [address] PCP - General Internal Medicine 05/30/15 12/11/19 Joel Collado MD [address] [place] [address] PCP - General Internal Medicine 12/12/19 Ratna Brannon MD [address] [place] [address] Obstetrics/Gynecology 11/03/22 documented as of this encounter
--- OUTSIDE RECORDS SUMMARY | 2024-05-17 14:28 | XMS_ITS | Encounter Summary ---
Author Organization [facility] Address [address] [place] [address] Care Team Providers Care Registrar Assistant Name Role Phone Carmen Skelton MD Primary Care Provider [phone] Joel Collado MD Primary Care Provider Ratna Brannon MD Unavailable Unavailable Encounter Details Date Type Department Care Team Description 06/22/2016 Business Doc Medical Records [address] [place] [address] Abstract, Provider Social History Tobacco Use Types [...] on filedocumented in this encounter Care Teams Registrar Assistant Relationship Specialty Start Date End Date Carmen Skelton MD [address] [place] [address] PCP - General Internal Medicine 05/30/15 12/11/19 Joel Collado MD [address] [place] [address] PCP - General Internal Medicine 12/12/19 Ratna Brannon MD [address] [place] [address] Obstetrics/Gynecology 11/03/22 documented as of this encounter
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
--- OUTSIDE RECORDS SUMMARY | 2024-05-17 14:28 | XMS_ITS | Encounter Summary ---
Author Organization [facility] Address [address] [place] [address] Care Team Providers Care Scenic Artist Name Role Phone Carmen Skelton MD Primary Care Provider [phone] Joel Collado MD Primary Care Provider [phone] Ratna Brannon MD Unavailable Unavailable Encounter Details Date Type Department Care Team Description 11/01/2018 School Childcare Attendant Report Medical Records [address] [place] [address] Rehab., Ariel Social History Tobacco Use Types [...] on filedocumented in this encounter Care Teams Scenic Artist Relationship Specialty Start Date End Date Carmen Skelton MD [address] [place] [address] PCP - General Internal Medicine 05/30/15 12/11/19 Joel Collado MD [address] [place] [address] PCP - General Internal Medicine 12/12/19 Ratna Brannon MD [address] [place] [address] Obstetrics/Gynecology 11/03/22 documented as of this encounter
--- OUTSIDE RECORDS SUMMARY | 2024-05-17 14:28 | XMS_ITS | Encounter Summary ---
Author Organization [facility] Address [address] [place] [address] Care Team Providers Care Hr Representative Name Role Phone Carmen Skelton MD Primary Care Provider [phone] Joel Collado MD Primary Care Provider [phone] Ratna Brannon MD Unavailable Unavailable Reason for Visit * Reason Onset Date Comments Provider Call Back 01/24/2016 Encounter Details Date Type Department Care Team Description 01/24/2016 Telephone Adult Medicine [facility] [address] [place], [place] [phone] Carmen Skelton MD [address] [place] [address] [phone] Provider Call Back Social History Tobacco Use Types Packs/Day Years [...] encounter Miscellaneous Notes * Telephone Encounter - Lore Corona PA-C - 02/06/2016 6:51 PM EST Nida Trujillo: Thank you for this update. I specifically advised the patient the our physiatry department does [place] pain management cases. She was advised to call the number on the back of her insurance card to determine if a closer pain management clinic was available; she already has an appointment to seea paint crew supervisor, but simply does not wish to drive necessary distance to be seen in their office. Kindly, Lore Corona PA-C * Telephone Encounter - Cassandra Tyler - 01/29/2016 10:07 AM EST Spoke to patient I informed her that I am unable to refer her to any other provider until an ACRTER issigned and received back as she has sensitive information in her chart and the other offices that we can send her to first need to review notes before deciding if they will even see the patient. Patient is scheduled to see Dennis Nino PA-C in our Physiatry Department she wants him to evaluate her and see what he thinks. I he feels that she needs pain management and can't help her then he can refer her to whom he thinks can. Thank you, Cassandra Referrals Coordinator [facility] * Telephone Encounter - Lore Corona PA-C - 01/24/2016 12:12 PM EST Patient is unwilling to drive to [place], [place] (due to distance) for pain management appt; Please advise. * Telephone Encounter - Lore Lei C.M.A. - 01/24/2016 11:41 AM EST Lore please advise * Telephone Encounter - Sujey Lindsey - 01/24/2016 11:26 AM EST Caller requesting call back from provider: Is the caller the patient? YES If caller is not the patient, what is the callers name? N/A Callers relationship to patient? N/A If person calling is not the patient themselves, is there a verbal release in FYI or permanent comments for this person: NO Reason for call back: Patient was referred to pain management in [place]-Dr Gorman/patient does not want to travel/ could a new pain management center be recommended? Caller offered to speak with the nurse for assistance: YES Response: Patient offered to speak with nurse for assistance and patient agreed. Message forwarded to nurse. documented in this encounter Plan of Treatment Not on file documented as of this encounter Visit Diagnoses Not on filedocumented in this encounter Care Teams Hr Representative Relationship Specialty Start Date End Date Carmen Skelton MD [address] [place] [address] PCP - General Internal Medicine 05/30/15 12/11/19 Joel Collado MD [address] [place] [address] PCP - General Internal Medicine 12/12/19 Ratna Brannon MD [address] [place] [address] Obstetrics/Gynecology 11/03/22 documented as of this encounter
--- OUTSIDE RECORDS SUMMARY | 2024-05-17 14:28 | XMS_ITS | Encounter Summary ---
Author Organization [facility] Address [address] [place] [address] Care Team Providers Care Taper/Finisher Name Role Phone Carmen Skelton MD Primary Care Provider [phone] Joel Collado MD Primary Care Provider [phone] Ratna Brannon MD Unavailable Unavailable Encounter Details Date Type Department Care Team Description 10/14/2018 Night Triage Doc Medical Records [address] [place] [address] Abstract, Provider Social History Tobacco Use Types [...] on filedocumented in this encounter Care Teams Taper/Finisher Relationship Specialty Start Date End Date Carmen Skelton MD [address] [place] [address] PCP - General Internal Medicine 05/30/15 12/11/19 Joel Collado MD [address] [place] [address] PCP - General Internal Medicine 12/12/19 Ratna Brannon MD [address] [place] [address] Obstetrics/Gynecology 11/03/22 documented as of this encounter
--- OUTSIDE RECORDS SUMMARY | 2024-05-17 14:28 | XMS_ITS | Encounter Summary ---
Author Organization [facility] Address [address] [place] [address] Care Team Providers Care Mixing Place Supervisor Name Role Phone Carmen Skelton MD Primary Care Provider [phone] Joel Collado MD Primary Care Provider [phone] Ratna Brannon MD Unavailable Unavailable Reason for Visit * Reason Comments E-prescribe Rx Request Encounter Details Date Type Department Care Team Description 09/11/2019 Refill Adult Medicine [address] [address] Rain Denny PA-C E-prescribe Rx Request Social History Tobacco Use [...] Telephone Encounter - Lore Corona PA-C - 09/11/2019 3:09 PM EDT This medicine is not intended to be long-term due to risk of GI bleeding and kidney damage. Lore Corona PA-C * Telephone Encounter - Sindi Ro - 09/11/2019 2:35 PM EDT Last ov 07/31/19 Ov 11/09/19 Lab Results Component Value Date NA 141 09/06/2018 K 4.1 09/06/2018 CO2 32 09/06/2018 CL 103 09/06/2018 BUN 13 09/06/2018 CREAT 1.11 09/06/2018 GLU 96 09/06/2018 CA 9.4 09/06/2018 GFR 50 09/06/2018 * Telephone Encounter - Татьяна Baker - 09/11/2019 11:04 AM EDT Patient would like script to be: E-PRESCRIBED/FAXED TO PHARMACY WHEN WAS THE PATIENT'S LAST APPOINTMENT IN ADULT MEDICINE? 07/31/19 WHEN WAS THE LAST TIME THE PATIENT SAW THEIR PCP? 04/17/19 Does patient have an upcoming appointment? Yes 11/09/19 (THE MEDICATION REQUESTED IS ON THE MED [...] / Plan: [place] / Product Type: MEDICARE [id number] documented in this encounter Plan of Treatment Not on file documented as of this encounter Visit Diagnoses Not on filedocumented in this encounter Care Teams Mixing Place Supervisor Relationship Specialty Start Date End Date Carmen Skelton MD [address] [place] [address] PCP - General Internal Medicine 05/30/15 12/11/19 Joel Collado MD [address] [place] [address] PCP - General Internal Medicine 12/12/19 Ratna Brannon MD [address] [place] [address] Obstetrics/Gynecology 11/03/22 documented as of this encounter
--- OUTSIDE RECORDS SUMMARY | 2024-05-17 14:28 | XMS_ITS | Encounter Summary ---
Author Organization [facility] Address [address] [place] [address] Care Team Providers Care Pin Setter Name Role Phone Carmen Skelton MD Primary Care Provider Joel Collado MD Primary Care Provider [phone] Ratna Brannon MD Unavailable Unavailable Reason for Visit * Reason Comments E-prescribe Rx Request Encounter Details Date Type Department Care Team Description 06/06/2019 Refill Adult Medicine [address] [address] Rain Denny PA-C E-prescribe Rx Request Social [...] encounter Miscellaneous Notes * Telephone Encounter - Maria A Cervantes M.A. - 06/06/2019 4:52 PM EDT [place] 05/04/2019 F/U appt 11/09/2019 Lab Results Component Value Date NA 141 09/06/2018 K 4.1 09/06/2018 CO2 32 09/06/2018 CL 103 09/06/2018 BUN 13 09/06/2018 CREAT 1.11 09/06/2018 GLU 96 09/06/2018 CA 9.4 09/06/2018 GFR 50 09/06/2018 ] * Telephone Encounter - Rain Reyes - 06/06/2019 1:09 PM EDT Patient would like script to be: E-PRESCRIBED/FAXED TO PHARMACY WHEN WAS THE PATIENT'S LAST APPOINTMENT IN ADULT MEDICINE? 06/05/19 WHEN WAS THE LAST TIME THE PATIENT SAW THEIR PCP? 04/17/19 Does patient have an upcoming appointment? Yes 06/12/19 (THE MEDICATION REQUESTED IS ON THE MED [...] / Plan[place] / Product Type: MEDICARE [id number] documented in this encounter Plan of Treatment Not on file documented as of this encounter Visit Diagnoses Not on filedocumented in this encounter Care Teams Pin Setter Relationship Specialty Start Date End Date Carmen Skelton MD [address] [place] [id number] PCP - General Internal Medicine 05/30/15 12/11/19 Joel Collado MD [address] [place] [id number] PCP - General Internal Medicine 12/12/19 Ratna Brannon MD [address] [place] [address] Obstetrics/Gynecology 11/03/22 documented as of this encounter
--- OUTSIDE RECORDS SUMMARY | 2024-05-17 14:28 | XMS_ITS | Encounter Summary ---
Author Organization [facility] Address [address] [place] [address] Care Team Providers Care Manager Life Insurance Name Role Phone Joel Collado MD Primary Care Provider [phone] Ratna Brannon MD Unavailable Unavailable Reason for Visit * Reason Onset Date Comments REFERRAL 11/05/2021 [facility] Neurology Encounter Details Date Type Department Care Team Description 11/05/2021 Telephone Adult Medicine [address] [id number] Joel Collado MD [address] [place] [address] [phone] REFERRAL ([facility] Neurology) Social History Tobacco Use Types Packs/Day Years [...] suspected to have Coronavirus/COVID-19? No / Unsure 10/31/2021 8:11 AM EDT documented as of this encounter Miscellaneous Notes * Telephone Encounter - Vilma Josafat - 11/05/2021 2:59 PM EDT Re: Referral dated 11-11-20. [facility] Neurology called for the labs from the last 6-12 months. Please faxto [phone] documented in this encounter Plan of Treatment Not on file documented as of this encounter Visit Diagnoses Not on filedocumented in this encounter Care Teams Manager Life Insurance Relationship Specialty Start Date End Date Joel Collado MD [address] [place] [phone] PCP - General Internal Medicine 12/12/19 Ratna Brannon MD [address] [place] [phone] Obstetrics/Gynecology 11/03/22 documented as of this encounter
--- OUTSIDE RECORDS SUMMARY | 2024-05-17 14:28 | XMS_ITS | Encounter Summary ---
Author Organization [facility] Address [address] [place] [address] Care Team Providers Care Fabric And Accessories Estimator Name Role Phone Joel Collado MD Primary Care Provider [phone] Ratna Brannon MD Unavailable Unavailable Encounter Details Date Type Department Care Team Description 07/23/2021 Folder Seamer Automatic Report Medical Records [address] [place], [place] [phone] [place] [address] Social History Tobacco Use Types Packs/Day Years [...] suspected to have Coronavirus/COVID-19? No / Unsure 07/24/2021 10:18 AM EDT documented as of this encounter Plan of Treatment Not on file documented as of this encounter Visit Diagnoses Not on filedocumented in this encounter Care Teams Fabric And Accessories Estimator Relationship Specialty Start Date End Date Joel Collado MD [address] [place] [phone] PCP - General Internal Medicine 12/12/19 Ratna Brannon MD [address] [place] [address] Obstetrics/Gynecology 11/03/22 documented as of this encounter
== END 2024-05-17 11:55 | disposition home or self-care (01) ==
LOC: HO.HMGCX 11:54
PROVIDERS: PCP Internal Medicine; Visit Provider Internal Medicine Rheumatology
DX: M19.041 Primary osteoarthritis, right hand (principal); M19.042 Primary osteoarthritis, left hand
CPT/HCPCS: 36415; 73130; 82565; 84450; 84460; 99202

== ENCOUNTER → 2024-05-17 12:18 | Outpatient (BNV) | payer MEDICARE, SELFPAY | PROVIDERS: PCP Internal Medicine; Visit Provider Radiology Diagnostic Radiology | DX: M19.041 Primary osteoarthritis, right hand (principal); M19.042 Primary osteoarthritis, left hand | CPT/HCPCS: 73130 ==

== ENCOUNTER 2024-08-04 09:07 | Outpatient (AMB) | payer OTHER, SELFPAY ==
--- OUTSIDE RECORDS SUMMARY | 2024-08-04 09:21 | XMS_ITS | Clinical Summary ---
Author Organization 175 [facility] Address [address] [place] [address] Phone Care Team Providers Care Shirt Marker Name Role Phone Joel Collado MD Primary Care Provider [phone] Allergies Active Allergy Reactions Criticality Noted Date Comments Cat Dander 05/25/2024 House Dust 05/25/2024 Mold 08/05/2016 Umeclidinium [place] 12/17/2016 Throat tightness (Incruse Ellipta) Medications topiramate (TOPAMAX) 100 mg tablet Take 1 tablet (100 mg total) by mouth. 3 Active Breztri Aerosphere 160-9-4.8 mcg/actuation HFA aerosol inhaler inhaler Inhale 2 puffs by mouth 1 (one) time each day. 3 Active diclofenac (VOLTAREN) 1 % topical gel Apply 4 g topically 2 (two) times a day. 4 Active butalbital-acet aminophen-caffe ine 50-300-40 mg capsule Take 1 capsule by mouth 1 (one) time each day. 3 Active buPROPion SR (WELLBUTRIN SR) 100 mg 12 hr tablet Take 1 tablet (100 mg total) by mouth 2 (two) times a day. 3 Active citalopram (CeleXA) 20 mg tablet Take 1 tablet (20 mg total) by mouth 1 (one) time each day. 11/09/202 0 Active blood-glucose meter [facility] 3 Active isopropyl alcohol-benzoca ine 70-6 % pads, medicated 1 Device by Not Applicable route. 1 Active albuterol 2.5 mg /3 mL (0.083 %) nebulizer solution Take 1 Vial by nebulization every 4 hours as needed for Wheezing, Shortness of Breath or Cough. Active blood-glucose meter kit Blood Glucose Monitoring Suppl (ONE TOUCH ULTRA 2) w/Device Kit Use to check blood sugar once a day Active estradioL (ESTRACE) 0.01 % (0.1 mg/gram) vaginal cream Use 1-2 grams weekly vaginally Active gabapentin (NEURONTIN) 100 mg capsule Take 3 Capsules by mouth at bedtime. Active incontinence pad, liner, disp pad Incontinence Supply Disposable (Depend Pant Extra Large) [facility] [place] silhouette L-XL Use 2-3 times daily for Incontinence Indefinite Use Active LORazepam (ATIVAN) 0.5 mg tablet Take 1 tablet (0.5 mg total) by mouth every 6 (six) hours if needed for anxiety. Active rimegepant (Nurtec) 75 mg dispersible tablet Active OneTouch Ultra Test test strip USE TO TEST BLOOD SUGAR TWICE DAILY. Active rOPINIRole (REQUIP) 0.25 mg tablet Take 2 Tablets by mouth 3 times daily. Active Vitamin D3 25 mcg (1,000 unit) capsule TAKE 1 CAPSULE BY MOUTH DAILY 28 capsule 5 5 Active hydrALAZINE (APRESOLINE) 10 mg tablet TAKE 1 TABLET BY MOUTH TWICE A DAY 56 tablet 5 5 Active omeprazole (PriLOSEC) [address] capsule TAKE 2 CAPSULES BY MOUTH DAILY 56 capsule 5 5 Active losartan (COZAAR) 100 mg tablet TAKE 1 TABLET BY MOUTH DAILY 90 tablet 1 5 Active metFORMIN (GLUCOPHAGE) 500 mg tablet TAKE 1 TABLET BY MOUTH EVERY MORNING 90 tablet 1 5 Active docusate sodium (COLACE) 100 mg capsule TAKE 1 CAPSULE BY MOUTH TWICE A DAY 56 capsule 2 5 Active amLODIPine (NORVASC) 10 mg tablet Take 1 tablet (10 mg total) by mouth 1 (one) time each day. 90 each 1 5 11/22/19 25 Active rosuvastatin (CRESTOR) 40 mg tablet Take 1 tablet (40 mg total) by mouth 1 (one) time each day. 90 each 1 5 11/22/19 25 Active aspirin 81 mg EC tablet Take 1 tablet (81 mg total) by mouth 1 (one) time each day. 90 tablet 1 5 Active loratadine (CLARITIN) 10 mg tabletIndicatio ns:Non-seasonal allergic rhinitis, unspecified trigger TAKE 1 TABLET BY MOUTH DAILY 30 tablet 2 5 Active alendronate (FOSAMAX) 70 mg tablet TAKE 1 TABLET BY MOUTH EVERY 7 DAYS ON AN EMPTY STOMACH WITH 8 OUNCES OF WATER. NO FOOD/DRINK FOR 30 MINUTES AFTER.TAKE 1 TABLET BY MOUTH EVERY 7 DAYS ON AN EMPTY STOMACH WITH 8 OUNCES OF WATER. NO FOOD/DRINK FOR 30 MINUTES AFTER. 4 tablet 1 5 Active lancets (OneTouch Delica Plus Lancet) 30 gaugeIndication s:Controlled type 2 diabetes mellitus with chronic kidney disease, with long-term current use of insulin, unspecified CKD stage ([facility] V24, [facility] V28) use to test blood sugar twice daily 200 each 1 5 Active tirzepatide (Mounjaro) 2.5 mg/0.5 mL injectionIndica tions:Morbid obesity ([facility] V24, [facility] V28),HTN (hypertension), benign,MARINO and COPD overlap syndrome ([facility] V24, [facility] V28),Controlled type 2 diabetes mellitus with other diabetic kidney complication, unspecified whether longterm insulin use ([facility] V24, [facility] V28) Inject 0.5 mL (2.5 mg total) under the skin every 7 (seven) days. 2 mL 5 Active Ventolin HFA 90 mcg/actuation inhalerIndicati ons:Non-seasona l allergic rhinitis, unspecified trigger,Chronic obstructive pulmonary disease, unspecified COPD type ([facility] V24, [facility] V28) INHALE 2 PUFFS FOUR TIMES A DAY NEEDED WHEEZING OR SHORTNESS OF BREATH 18 g 3 5 Active polyethylene glycol (MIRALAX) 17 gram packet Take 17 g by mouth 1 (one) time each day. 510 g 5 08/05/19 25 Active wheat dextrin 3 gram/3.5 gram powder in packet Take 1 packet by mouth 1 (one) time each day. 30 packet 5 Active Active Problems Problem Noted Date Diagnosed Date Moderate obstructive sleep apnea 11/25/2023 Primary osteoarthritis of left knee 06/07/2023 Primary osteoarthritis of right knee 06/07/2023 Morbid obesity with BMI of 4 0.0-44.9, adult [place] [place] [facility] [place] 04/05/2023 Morbid obesity [place] [place] [facility] [place]) 2023 Tension headache 03/18/2023 Type 2 diabetes mellitus, co ntrolled, with renal complications [place] [place] [id number]) 05/20/2021 Chronic foot pain, right 06/18/2020 Stage 3a chronic kidney disease ([facility] [place], [facility] V28) 12/04/2019 TIA (transient ischemic attack) 04/17/2019 Overview (04/05/2023): Left facial numbness, arm weakness 04/06 Left shoulder tendinitis 12/02/2018 Cervical spondylosis without myelopathy 10/22/19 19 Rotator cuff tendinitis, left 10/21/2018 Pulmonary nodules 08/26/2018 Chronic obstructive pulmonar y disease ([facility] [place] [facility] [place]) 08/25/2017 IBS (irritable bowel syndrome) 06/17/2017 MARINO and COPD overlap syndrome ([facility] [place], [facility] V[facility]) 01/21/2017 Overview (04/05/2023): NOT TREATED (April 2019) [facility] Polysomnogram: Date 01/16/2017; Wt 204# SE 78%; [...] 94%. For the entire study, PLMs ~5. [facility] Home Sleep Apnea Test: Date 08/11/2019; BMI 24; RDI 19, AHI 19; average oxygen saturation 95% (lowest 70% without saturations <88% for 5% or more of study) [facility] treatment polysomnogram 05/03/2021; weight 217; BMI 40. [...] test. Obstructive sleep apnea 01/21/2017 Overview (11/25/2023): [facility] treatment Polysomnogram: Date 01/21/2023; Wt 220#; BMI 40.24; SE 92%; SM 94%; REM 13%; CPAP @6 10- 12 cm: AHI 3, REM AHI 2, Central apneas 9; Obstructive apneas 0; Mixed apneas 0; hypopneas 13; average oxygen saturation 94% (lowest 88%); PL~11 [facility] Home Sleep Apnea Test: Date 08/11/2019; [...] Anxiety 02/28/2014 Depression, major, in partial remission ([facility] V24) 02/28/2014 HTN (hypertension), benign 02/28/2014 Hyperlipidemia 02/28/2014 OAB (overactive bladder) 02/28/2014 Osteoporosis 02/28/2014 Overview (04/05/2023): 08/30 T score spine -1.3 hip -1.1 FRAX score 9.8% 10 year fracture risk 03/06 T score spine -1.7 hip -1.0 FRAX score 20% 10 year fracture risk Encounters Date Type Department Care Team Description 07/26/2024 7:16 AM EDT - 07/26/2024 11:59 PM EDT Hospital Encounter [facility] CT Scan [address] [place] [phone] Encounter for screening for lung cancer; Former smoker Discharge Disposition: Home or Self Care 07/20/2024 2:45 PM EDT Office Visit Walk-In Clinic - [address] [phone] Randy Paz NP Symptoms of upper respiratory infection (URI) (Primary Dx) 07/20/2024 Telephone Internal Medicine - [address] [phone] Joel Collado MD Sore Throat 07/11/2024 Telephone Lung Screening Program - [place] [address] [phone] Evonne Matta [place] Appointment (1st Notification) 07/04/2024 2:00 PM EDT Office Visit Internal Medicine - [address] [phone] Rain Gutierres NP Abdominal pain, unspecified abdominal location (Primary Dx); Diarrhea, unspecified type; Belching 07/04/2024 Telephone Bariatric Surgery [address] [phone] Melanie Olivares PA Advice Only (Severe stomach pain) 06/29/2024 Telephone Internal Medicine [address] [phone] Joel Collado MD Hospital Follow-up 06/23/2024 10:30 AM EDT Consult Bariatric Surgery [address] [phone] Melanie Olivares PA Morbid obesity ([facility] V24, [facility] V28) (Primary Dx); HTN (hypertension), benign; MARINO and COPD overlap syndrome ([facility] V24, [facility] V28); Controlled type 2 diabetes mellitus with other diabetic kidney complication, unspecified whether oysterman insulin use ([facility] V24, [facility] V28) 05/25/2024 9:00 AM EDT Office Visit Internal Medicine - [address] [phone] Joel Collado MD Controlled type 2 diabetes mellitus with stage 2 chronic kidney disease, without long-term current use of insulin ([facility] V24, [facility] V28) (Primary Dx); HTN (hypertension), benign; Pure hypercholesterolemia; Irritable bowel syndrome, unspecified type 05/22/2024 Telephone Internal Medicine - [address] [phone] Joel Collado MD Forms/questionnaires ([facility] Certification of Need for Reasonable Accommodation/Modific ation or Assistance Animal) from Last 3 Months Immunizations Name Administration [...] Haynes OTHER SURGICAL HISTORY 03/12/2015 Right PROCEDURE: [place] PARTIAL EXCISION BONE CLAVICLE; COMMENT: Dr. Declan Haynes (distal clavical excision) TUBAL LIGATION PROCEDURE: HISTORICAL TUBAL LIGATION; COMMENT: and tubal BLADDER SURGERY 09/2015 PROCEDURE: HISTORICAL BLADDER SURGERY; COMMENT: bladder sling; Dr. Brannon OTHER SURGICAL HISTORY 08/2018 PROCEDURE: MAMMOGRAM Medical History Medical History Date Comments Diabetes ([facility] V24, [facility] V28) DX:Diabetes ([facility]) Hypertension DX:Hypertension Hyperlipemia DX:Hyperlipemia Obesity DX:Obesity Depression DX:Depression GERD (gastroesophageal reflux disease) DX:GERD (gastroesophageal reflux disease) Fibromyalgia 07/11/2015 DX:Fibromyalgia PTSD (post-traumatic stress disorder) 07/11/2015 DX:PTSD (post-traumatic stress disorder) TIA (transient ischemic attack) 04/17/2019 DX:TIA (transient ischemic attack); COMMENT: Left facial numbness, arm weakness 04/06 Type 2 diabetes mellitus, co ntrolled, with renal complications (CMS/HCC V24, CMS/HCC V28) 05/20/2021 DX:Type 2 diabetes mellitus, controlled, with renal complications (HCC) COVID-19 virus infection 11/07/2021 DX:COVI D-19 virus infection Right rotator cuff tear 01/21/2016 DX:Right rotator cuff tear; COMMENT: Partial tear s/p repair 03/12/[address] Declan Haynes Family History Medical History Relation Name Comments Lung cancer Brother esophageal canc er Alcohol abuse Daughter Emphysema Father [place], prostate ca ncer Breast cancer Mother Dementia Mother hypertension, b reast cancer, cervical cancer Lung cancer Sister also lymphoma Relation Name Status Comments Brother Daughter Father Mother Sister Social History Tobacco Use Types Packs/Day Years Used Date Smoking Tobacco: Former Cigarettes Q uit: 02/04/2016 Smokeless Tobacco: Never Tobacco Cessation:Counseling Given: Not [...] Sign Reading Time Taken Comments Blood Pressure 132/74 07/20/2024 2:40 PM EDT Pulse 96 07/20/2024 2:40 PM EDT Temperature 37.2 C (99 F) 07/20/2024 2:40 PM EDT Respiratory Rate 16 01/05/2024 9:06 AM EST Oxygen Saturation 99% 07/20/2024 2:40 PM EDT Inhaled Oxygen Concentration - - Weight 98.1 kg (216 lb 3.2 oz) 07/04/2024 1:52 P M EDT Height 157.5 cm (5' 2 ) 07/04/2024 1:52 PM EDT Body Mass Index 39.54 07/04/2024 1:52 PM EDT Plan of Treatment Upcoming Encounters Date Type Department Care Team (Late st Contact Info) Description 08/14/2024 2:45 PM EDT Office Visit Pulmonolgy - [place] [address] [facility] [address] [facility] [place] [phone] Jacqui Cuellar NP [address] [place] [address] [place] [address] 09/28/2024 10:15 AM EDT Office Visit Bariatric Surgery - [place] [address] [place] [phone] Melanie Olivares PA [address] [place] [address] [place] [address] 10/03/2024 9:20 AM EDT Office Visit [facility] [address] [place] [address] [place] [phone] Patrick Rosen MD [address] [place] [address] [address] [place] [address] [place] [address] 10/13/2024 10:30 AM EDT Appointment Radiology Department [address] [phone] Health Maintenance Due Date Last Done Comments Diabetes: Annual Foot Exam 09/28/1967 Diabetes: Annual Retina Eye Exam 09/28/1967 Hepatitis A Vaccines (1 of 2 - Risk 2-dose series) 1976 RSV Immunization Adult Patients (1 - Risk 60-74 years 1-dose series) 2017 Social Influencers of Health Screening 01/24/2022 COVID-19 Vaccine ( season) 2023 07/03/2021, 02/13/2021, 05/30/2020, Additional history exists Depression Screening 02/17/2024 02/16/2023 Falls Risk Assessment 02/17/2024 02/16/2023 Medicare Annual Wellness Visit 02/17/2024 02/16/2023 Diabetes: Blood Sugar Control Test (HGBA1C) 11/24/2024 05/25/2024, 11/25/2023, 02/16/2023 Diabetes: Annual Urine Albumin-Creatinine Ratio (uACR) 05/25/2025 05/25/2024, 11/03/2022 Diabetes: Annual GFR (Glomerular Filtration Rate) 05/25/2025 05/25/2024, 11/25/2023, 06/17/2023, Additional history exists Hypertension/CHF/CAD Annual BMP Blood Test 05/25/2025 05/25/2024, 11/25/2023, 06/17/2023, Additional history exists Breast Cancer Screening 10/06/2025 10/07/19 24, 10/07/2023, 09/22/2022, Additional history exists Cholesterol Screening (Lipid Panel) 05/25/2029 05/25/2024, 11/25/2023, 11/03/2022 Colorectal Cancer Screening: Colonoscopy 01/07/2032 [...] age to complete this topic Meningococcal B Vaccine Aged Out No l onger eligible based on patient's age to complete this topic RSV Immunization Patients Under 20 months Aged Out No longer eligible based on patient's age to complete this topic Varicella Vaccines Aged Out No longer eligible based on patient's age to complete this topic Procedures Procedure Name Priority Date/Time Associated Diagnosis Comments CT LUNG SCREENING Routine 07/26/2024 7:2 9 AM EDT Encounter for screening for lung cancer Former smoker POC RAPID STREP A Routine 07/20/2024 4:4 8 PM EDT Symptoms of upper respiratory infection (URI) POC RAPID [id number], MOLECULAR Routine 07/20/2024 4:47 PM EDT Symptoms of upper respiratory infection (URI) STREP A PCR Routine 07/20/2024 3:31 PM EDT Symptoms of upper respiratory infection (URI) MICROALBUMIN CREATININE URINE RATIO Routine 05/25/2024 9:37 AM EDT Controlled type 2 diabetes mellitus with stage 2 chronic kidney disease, without long-term current use of insulin ([facility] V24, [facility] V28) COMPREHENSIVE METABOLIC PANEL Routine 05/25/2024 9:36 AM EDT Controlled type 2 diabetes mellitus with stage 2 chronic kidney disease, without long-term current use of insulin (CMS/HCC V24, CMS/HCC V28) HEMOGLOBIN A1C Routine 05/25/2024 9:36 AM EDT Controlled type 2 diabetes mellitus with stage 2 chronic kidney disease, without long-term current use of insulin (CMS/HCC V24, CMS/HCC V28) LIPID PANEL WITH REFLEX TO DIRECT LDL Routine 05/25/2024 9:36 AM EDT Controlled type 2 diabetes mellitus with stage 2 chronic kidney disease, without long-term current use of insulin (CMS/HCC V24, CMS/HCC V28) EXTERNAL CLINICAL LAB 05/18/2024 EXTERNAL CLINICAL LAB 05/18/2024 EXTERNAL XRAY REPORT 05/18/2024 SCREENING MAMMOGRAPHY BI 2-VIEW BREAST INC CAD Routine 10/07/2023 2:09 PM EDT Encounter for screening mammogram for malignant neoplasm of breast HM DEPRESSION SCREENING Routine 02/16/2023 FALLS RISK ASSESSMENT Routine 02/16/2023 DXA BONE DENSITY STUDY 1+ SITS AXIAL SKEL Routine 01/15/2023 8:31 AM EST Age-related osteoporosis without current pathological fracture COLONOSCOPY Routine 01/06/2022 HEPATITIS C SCREENING Routine 05/22/2016 from Last 3 Months or Most Recently Relevant to Health Maintenance Results * CT Lung Screening (07/26/2024 7:29 AM EDT) Anatomical Region Laterality Modality Chest Computed Tomogra phy 07/26/2024 10:4 7 AM EDT Impressions 07/26/2024 10:58 AM EDT No new or suspicious pulmonary nodules. Lung RADS 1-negative. Recommend continued screening with low-dose chest CT in 12 months. -------- FINAL REPORT -------- Dictated By: AMADOU LOPEZ Dictated Date: 07/26/2024 10:47 ET Assigned Physician: AMADOU LOPEZ Reviewed and Electronically Signed By: AMADOU LOPEZ Signed Date: 07/26/2024 10:58 ET Workstation ID: [id number] Transcribed By: Self Edit Transcribed Date: 07/26/2024 10:47 ET Narrative 07/26/2024 10:58 AM EDT PROCEDURE: Chest CT INDICATION: Lung cancer screening, former smoker, 38 pack year smoking history TECHNIQUE: Chest CT without contrast. Multi planar reformats were created and interpreted. The examination was performed utilizing dose reduction techniques. Total DLP 146 COMPARISON: 07/27/2023 FINDINGS: LUNGS/PLEURA: Central airways are patent. No new or suspicious pulmonary nodules. Calcified granulomas in the left lower lobe. No pleural effusion or pneumothorax. MEDIASTINUM: Thyroid gland is unremarkable. No mediastinal or hilar lymphadenopathy. Calcified mediastinal and left hilar lymph nodes indicative of prior granulomatous exposure. Cardiac chambers are normal in size. No pericardial effusion. Esophagus is normal. CHEST WALL: No axillary lymphadenopathy or superficial hematoma. UPPER ABDOMEN:The visualized portions of the upper abdomen are unremarkable. BONES: No acute fracture. Scattered degenerative changes seen throughout the bones. Procedure Note Amadou Lopez MD - 07/26/2024 PROCEDURE: Chest CT INDICATION: Lung cancer screening, former smoker, 38 pack year smokinghistory TECHNIQUE: Chest CT without contrast. Multi planar reformats were createdand interpreted. The examination was performed utilizing dose reductiontechniques. Total DLP 146 COMPARISON: 07/27/2023 FINDINGS: LUNGS/PLEURA: Central airways are patent. No new or suspicious pulmonarynodules. Calcified granulomas in the left lower lobe. No pleuraleffusion or pneumothorax. MEDIASTINUM: Thyroid gland is unremarkable. No mediastinal or hilarlymphadenopathy. Calcified mediastinal and left hilar lymph nodesindicative of prior granulomatous exposure. Cardiac chambers are normalin size. No pericardial effusion. Esophagus is normal. CHEST WALL: No axillary lymphadenopathy or superficial hematoma. UPPER ABDOMEN:The visualized portions of the upper abdomen areunremarkable. BONES: No acute fracture. Scattered degenerative changes seen throughoutthe bones. IMPRESSION: No new or suspicious pulmonary nodules. Lung RADS 1-negative. Recommendcontinued screening with low-dose chest CT in 12 months. -------- FINAL REPORT -------- Dictated By: AMADOU LOPEZ Dictated Date: 07/26/2024 10:47 ET Assigned Physician: AMADOU LOPEZ Reviewed and Electronically Signed By: AMADOU LOPEZ Signed Date: 07/26/2024 10:58 ET Workstation ID: [id number] Transcribed By: Self Edit Transcribed Date: 07/26/2024 10:47 ET Phil Weems MD IMG CT PROCEDURES Final Result * POC rapid strep A manually resulted (07/20/2024 4:48 PM EDT) Rapid Strep A Screen POC Negative Negative Swab Structure of anterior portion of neck / Unknown 07/20/2024 4:48 PM EDT Randy Paz NP POINT OF CARE TEST ENTER/EDIT ORDERABLES Final Result * Poc Rapid [id number], MOLECULAR (07/20/2024 4:47 PM EDT) [facility] COVID-19/SARS- COV-2 Rapid POC Negative Negative Swab Nasopharyngeal structure / Unknown 07/20/2024 4:47 PM EDT us Randy Paz NP POINT OF CARE TEST ENTER/EDIT ORDERABLES Final Result * Strep A molecular study (07/20/2024 3:31 PM EDT) [facility] GRP A Strep PCR Not Detected Not Detected LAB MICROBIOLOGY METHOD 07/20/2024 8:47 PM EDT [facility] Swab Structure of anterior portion of neck / Unknown Non-blood Collection / Unknown 07/20/2024 3:31 PM EDT 07/20/2024 3:31 PM EDT us Randy Paz NP LAB MICROBIOLOGY - GENERAL OR DERABLES Final Result [facility] [address] [place] [address], * Microalbumin creatinine urine ratio (05/25/2024 9:37 AM EDT) [facility] Creatinine, Urine 38.0 mg/dL LAB CHEMISTRY METHOD 05/25/2024 4:02 PM EDT [facility] Microalb, Ur <5.0 0.0 - 29.0 mg/L LAB CHEMISTRY METHOD 05/25/2024 4:02 PM EDT [facility] Microalb/Creat Ratio <13 <30 mg/g creat LAB CHEMISTRY METHOD 05/25/2024 4:02 PM EDT [facility] Urine Urine specimen obtained by clean catch procedure / Unknown Non-blood Collection / Unknown 05/25/2024 9:37 AM EDT 05/25/2024 9:37 AM EDT us Joel Collado MD LAB URINE ORDERABLES Final Res ult [facility] [address] [place] [address], [place] [phone] * (ABNORMAL) Lipid panel with reflex to direct LDL (05/25/2024 9:36 AM EDT) Cholesterol 207(H) 0 - 200 mg/dL LAB CHEMISTRY METHOD 05/25/2024 12:56 PM EDT [facility] Triglycerides 210(H) 0 - 150 mg/dL LAB CHEMISTRY METHOD 05/25/2024 12:56 PM EDT [facility] HDL 60 >=40 mg/dL LAB CHEMISTRY METHOD 05/25/2024 12:56 PM EDT [facility] LDL Calculated 105(H) 0 - 100 mg/dL LAB CHEMISTRY METHOD 05/25/2024 12:56 PM EDT [facility] VLDL Cholesterol Dann 42 mg/dL LAB CHEMISTRY METHOD 05/25/2024 12:56 PM EDT [facility] Non HDL Chol. (LDL+VLDL) 147(H) <145 mg/dL LAB CHEMISTRY METHOD 05/25/2024 12:56 PM EDT [facility] Chol/HDL Ratio 3.5 0.0 - 4.4 LAB CHEMISTRY METHOD 05/25/2024 12:56 PM EDT [facility] Blood Venous blood specimen / Unknown Venipuncture / Unknown 05/25/2024 9:36 AM EDT 05/25/2024 9:36 AM EDT us Joel Collado MD LAB BLOOD ORDERABLES Final Res ult [facility] [address] [place] [address], [place] [phone] * Hemoglobin A1c (05/25/2024 9:36 AM EDT) [facility] Hemoglobin A1C 6.1 <6.5 % LAB CHEMISTRY METHOD 05/25/2024 1:46 PM EDT [facility] Mean Bld Glu Estim. 128 mg/dL LAB CHEMISTRY METHOD 05/25/2024 1:46 PM [facility] Blood Venous blood specimen / Unknown Venipuncture / Unknown 05/25/2024 9:36 AM EDT 05/25/2024 9:36 AM EDT us Joel Collado MD LAB BLOOD ORDERABLES Final Res ult [facility] [address] [place] [address], [place] [phone] * (ABNORMAL) Comprehensive metabolic panel (05/25/2024 9:36 AM EDT) [facility] Sodium 142 133 - 145 mmol/L LAB CHEMISTRY METHOD 05/25/2024 12:56 PM [facility] Potassium 3.7 3.5 - 5.5 mmol/L LAB CHEMISTRY METHOD 05/25/2024 12:56 PM [facility] Chloride 109 96 - 110 mmol/L LAB CHEMISTRY METHOD 05/25/2024 12:56 PM [facility] CO2 28 21 - 32 mmol/L LAB CHEMISTRY METHOD 05/25/2024 12:56 PM [facility] Anion Gap 5 3 - 11 LAB CHEMISTRY METHOD 05/25/2024 12:56 PM [facility] Glucose 110(H) 70 - 100 mg/dL LAB CHEMISTRY METHOD 05/25/2024 12:56 PM [facility] BUN 14 5 - 25 mg/dL LAB CHEMISTRY METHOD 05/25/2024 12:56 PM [facility] Creatinine 0.94 0.50 - 1.10 mg/dL LAB CHEMISTRY METHOD 05/25/2024 12:56 PM [facility] eGFR 67 >=60 mL/min/1. 73m2 LAB CHEMISTRY METHOD 05/25/2024 12:56 PM [facility] Comment:Calculation based on the Chronic Kidney Disease Epidemiology Collaboration (CKD-EPI) equation refit without adjustment for race. BUN/Creatinine Ratio 14.9 LAB CHEMISTRY METHOD 05/25/2024 12:56 PM [facility] Calcium 9.1 8.5 - 10.5 mg/dL LAB CHEMISTRY METHOD 05/25/2024 12:56 PM [facility] AST (SGOT) 16 10 - 42 unit/L LAB CHEMISTRY METHOD 05/25/2024 12:56 PM [facility] ALT (SGPT) 17 10 - 60 unit/L LAB CHEMISTRY METHOD 05/25/2024 12:56 PM [facility] Alkaline Phosphatase 106 42 - 121 unit/L LAB CHEMISTRY METHOD 05/25/2024 12:56 PM [facility] Total Protein 7.0 6.0 - 8.0 g/dL LAB CHEMISTRY METHOD 05/25/2024 12:56 PM [facility] Albumin 3.5 3.2 - 5.0 g/dL LAB CHEMISTRY METHOD 05/25/2024 12:56 PM [facility] Total Bilirubin 0.2 0.0 - 1.4 mg/dL LAB CHEMISTRY METHOD 05/25/2024 12:56 PM [facility] Blood Venous blood specimen / Unknown Venipuncture / Unknown 05/25/2024 9:36 AM EDT 05/25/2024 9:36 AM EDT us Joel Collado MD LAB BLOOD ORDERABLES Final Res ult [facility] [address] [place] [address], [place] [phone] * External Xray Report (05/18/2024) Anatomical Region Laterality Modality Radiographic Katerin ging us Provider [facility] IMG XR PROCEDURES Final Result * External clinical lab (05/18/2024) Only the most recent of2 resultswithin the time period is included. us Provider [facility] LAB BLOOD ORDERABLES Fin al Result * SCREENING MAMMOGRAPHY BI 2-VIEW BREAST INC [...] Breast cancer risk category Low (<15%) Jennifer Doug FITTING SUPERVISOR IMG XR PROCEDURES Final Result * Falls Risk Assessment (02/16/2023) Falls Risk Assessment abstracted Historical Provider HEALTH MAINTENANCE Final Result * Depression Screening (02/16/2023) Depression Screening abstracted [facility] Provider HEALTH MAINTENANCE Final Result * DXA BONE DENSITY STUDY 1+ SITS AXIAL SKEL (01/15/2023 8:31 AM EST) Anatomical Region Laterality Modality Bone Densitometr y 11/03/2022 8:44 AM EDT Narrative 01/16/2023 5:13 PM EST BONE DENSITY Lumbar Spine T-score is -0.5 (SD relative to 20-29 y/o adult) Z-score is +1.3 (SD relative to age matched peers) This is normal by criteria defined by the WHO. Left Hip T-score is -1.2 Z-score is +0.3 This is consistent with osteopenia by criteria defined by the WHO. Impression: Based on the World Health Organization criteria, Gage Jordan should be classified as having osteopenia. This patient has a 22% risk of major osteoporotic fracture and a 11% risk of hip fracture over the next 10 years. (World Health Organization Fracture Risk Assessment) [facility] Department of Internal Medicine recommends using [...] Based on the World Health Organization criteria, Gage Jordan should beclassified as having osteopenia. This patient has a 22% risk of majorosteoporotic fracture and a 11% risk of hip fracture over the next 10years. (World Health Organization Fracture Risk Assessment) [facility] Department of Internal Medicine recommendsusing National [...] IMG DXA PROCEDURES Fin al Result * Hm Colonoscopy (01/06/2022) Colonoscopy no interpretation , abstracted Anatomical Region Laterality Modality Other Historical Provider HEALTH MAINTENANCE Final Result * Hepatitis C Screening (05/22/2016) Hepatitis C Screening abstacted Historical Provider HEALTH MAINTENANCE Final Result from Last 3 Months or Most Recently Relevant to Health Maintenance [place] Care Teams Shirt Marker Relationship Specialty Start Date End Date Joel Collado MD [address] [place] [id number] PCP - General Internal Medicine 12/12/19
--- NOTE | 2024-08-04 09:32 | A.OFFVIS_ITS ---
Vital Signs 08/04/24 09:33 Height 5 ft 2 in Weight 213 lb BMI 39.0 BP 140/78 H Blood Pressure Location Lt brachial Position Sitting Pulse 75 Pulse Source Pulse Oximeter Pulse Oximetry (%) 97 Oxygen Delivery Method Room Air Intake Visit Reasons: 6 mo follow up Intake Note: Patient presents 6 month follow up for migraines/tremor Accompanied by: Self / Same As Patient Allergies umeclidinium (From Incruse Ellipta) Allergy (Severe, Verified 08/04/24 09:39) Anaphylaxis mold Allergy (Intermediate, Verified 08/04/24 09:39) Itchy Eyes trellegy ellipta Allergy (Uncoded 05/17/24 10:37) Anaphylaxis Medication List - Last Reconciled 08/04/24 by NAMRATA Guillermo albuterol sulfate 90 mcg/actuation (Ventolin HFA) 2 puffs inhalation Q4-6H PRN albuterol sulfate mg inhalation Q4H PRN alendronate 70 mg PO QWEEK amlodipine 10 mg PO DAILY aspirin 81 mg PO DAILY [Bilateral cockup carpal tunnel splint As directed] [id number] 160-9-4.8 mcg/actuation (Breztri Aerosphere) inhalations inhalation bupropion HCl 100 mg PO BID cholecalciferol (vitamin D3) 25 mcg PO DAILY citalopram 20 mg PO DAILY diclofenac sodium 1% 2 grams topical QID estradiol 0.01%(0.1mg/gram) grams vaginal fenofibrate nanocrystallized 145 mg PO DAILY gabapentin 100mg bid and 300mg qhs orally bedtime; 30 days lancets (FreeStyle Lancets) As directed loratadine 20 mg PO DAILY lorazepam 0.5 mg PO DAILY PRN losartan 25 mg PO DAILY metformin 500 mg PO DAILY mirabegron ER (Myrbetriq) 25 mg PO DAILY nortriptyline 50 mg PO BEDTIME omeprazole 40 mg PO DAILY rimegepant (Nurtec ODT) 75 mg PO ONCE PRN 30 days MDD 1 tab ropinirole 0.5 mg (2 x 0.25 mg) PO TID 30 days rosuvastatin 40 mg PO DAILY tolterodine ER 4 mg PO DAILY topiramate (Topamax) 100 mg PO BEDTIME 30 days HPI Comments Details: 68-yr-old female presents for f/u visit of migraine and tremor. Pt had rheumatology consult, and was dx'd w/ bilateral hand OA. She was advised to start OT, which she has just started. She continues to have some hand tingling and soreness. She has been having increased tremor- with rest and action. Does not notice if tremor is more right or left sided. Tremor does interferes with her ability to perform many of her daily activities including, ability to prepare her food, paint, or draw. She states that the tremor does not normally make her anxious, as the people around her are used to her condition. However she still does use some relaxation techniques, to try to reduce tremor when it occurs. She is prone to spill things. She is using her heavy silverware and rubber straws. Using covered water cup. She is using some medical marijuana, through [facility] in [employer] [place]. She is compliant with ropinirole, however does not fully effective. She does use gabapentin for pain management, however it is ineffective for her tremor. She has some hand tingling, soreness. She has distal finger nodules and left 2nd finger distal deformity- which patient attributes to how she washes the dishes. Reports her migraines are better controlled on Topiramate. Nurtec helps with breakthrough migraine. Having 3-4 migraines per month. She may occasionally have dizziness or orthostatic lightheadedness if she stands up too quick. [facility] Medical History Rupture of ligament of right ankle Rotator cuff injury COPD (chronic obstructive pulmonary disease) Family History Father Myocardial infarction FHx: prostate cancer Emphysema lung Mother HTN (hypertension) Breast cancer Cervical cancer Social History Household Members: None Housing: Apartment Alcohol intake: current Alcohol intake frequency: holidays/special occasions only Patient Tobacco Use Status: Former Tobacco user Substance Use Type: Marijuana Physical Exam Vital Signs: Last Vital Signs Pulse 75 08/04/24 09:33 BP 140/78 H 08/04/24 09:33 Pulse Ox 97 08/04/24 09:33 Oxygen Delivery Method Room Air 08/04/24 09:33 BMI result Body Mass Index 39.0 Const General: cooperative and no acute distress Resp Effort & Inspection: normal respiratory effort and able to speak in complete sentences Neuro Other: General: A&O x's 3 Expression: Intact- chronic mild left facial droop Voice: Intact Tremor: BUE L > R kinetic and postural tremor. Musculoskeletal: Bilateral DIP nodules. Left 2nd finger DIP deformity. Dyskinesia: None FFM: Intact Foot taps- slight decrease on left Gait: Steady gait Psych: Pleasant affect Assessment & Plan Assessment & Plan (1) Essential tremor: Comment: BUE, L > R Code(s): G25.0 - Essential tremor Category: Medical (2) Paresthesia and pain of both upper extremities: Code(s): R20.2 - Paresthesia of skin; M79.601 - Pain in right arm; M79.602 - Pain in left arm Category: Medical (3) Bilateral carpal tunnel syndrome: Code(s): G56.03 - Carpal tunnel syndrome, bilateral upper limbs Category: Medical (4) Vertigo: Code(s): R42 - Dizziness and giddiness Category: Medical (5) Tremor: Code(s): R25.1 - Tremor, unspecified Category: Medical (6) Orthostatic lightheadedness: Code(s): R42 - Dizziness and giddiness Category: Medical (7) Migraine with aura: Code(s): G43.109 - Migraine with aura, not intractable, without status migrainosus Category: Medical Qualifiers: Status migrainosus presence: without status migrainosus Intractability: not intractable Qualified Code(s): G43.109 - Migraine with aura, not i ntractable, without status migrainosus Plan For Essential tremor- Continue Ropinirole Discussed limitations of the current research in using marijuana for tremor symptoms. Discussed, if patient is to use this, she should do it through a certified medical marijuana clinic. Essential tremor: Will initiate right handed Casey-Trio order. * Patient has no contraindications to Casey trio, an external upper limb tremor stimulator therapy. * Casey trio, an external upper limb tremor stimulator, is being prescribed to treat patient's RUE, which is patient's dominant upper limb. * Casey trio, an external upper limb tremor stimulator, is clinically indicated for this patient, as the severity of patient's ET symptoms significantly impairs the patient's ability to perform dominant hand, jkbax-kwmo-luyhfxf activities of daily living (ADLs) as evidenced by the results of today's Moira & Brant Tremor ADL Scale (BF-ADL), which show a score of 3 or above. * Patient is not taking any tremor exacerbating medications. * Previous essential tremor medication trials include: Primidone-ineffective and poorly tolerated, Gabapentin- ineffective for tremor, Ropinirole- not fully effective and unable to increase further due to symptoms of orthostatic lightheadedness/dizziness. * Essential tremor treatment contraindications include: All Beta-Blockers d/t symptomatic Asmtha/COPD. * Casey trio, an external upper limb tremor stimulator therapy is being prescribed as an alternative to invasive and/or permanent surgical treatment options. For BUE paresthesias and hand soreness: Previous BUE EMG/NCS- bilateral mild carpal tunnel syndrome. Again trial bilateral carpal tunnel splint q.h.s.- order slip again given to patient Continue Gabapentin to 100mg bid and 300mg qhs Follow-up with Rheumatology as scheduled. Concur with follow-up BUE EMG/NCS. We will request orthopedic consult as well. For migraine: Continue Nortriptyline, Topiramate. Continue Nurtec ODT 75mg daily as needed, as patient has had good clinical effect from use. Acute migraine tx contraindications: all triptans contraindicated d/t h/o TIA, HTN, HLD. For dizziness: Encouraged to stand slowly, and to consume at least 64-80 oz of fluid per day including at least 1 serving of an electrolyte replacement beverage, such as Gatorade or liquid IV. Tilt table test- normal. Follow-up with cardiology as scheduled. ?f/u upon review of above and in 6 months or sooner prn Orders: Orders NE nerve conduction velocity 08/11/24 LILIANE Bowman R20.0 - Anesthesia of skin, R20.2 - Paresthesia of skin NE electromyogram (EMG) 08/11/24 LILIANE Bowman R20.0 - Anesthesia of skin, R20.2 - Paresthesia of skin Referrals Orthopedics Referral NAMRATA Guillermo G56.03 - Carpal tunnel syndrome, bilateral upper limbs, R20.2 - Paresthesia of skin, M79.601 - Pain in right arm, M79.602 - Pain in left arm Coding Level of Care Code Est Pt Level 4 (09691) Diagnoses Essential tremor G25.0 Paresthesia and pain of both upper extremities R20.2; M79.601; M79.602 Bilateral carpal tunnel syndrome G56.03 Vertigo R42 Tremor R25.1 Orthostatic lightheadedness R42 Migraine with aura and without status migrainosus, not intractable G43.109 Status migrainosus presence: without status migrainosus Intractability: not intractable BFADL Questionnaire: Cut food with a knife and fork: 3 - Able to do activity with a lot of effort, Use a spoon to drink soup: 3 - Able to do activity with a lot of effort, Hold a cup of tea: 3 - Able to do activity with a lot of effort, Pour milk from a bottle or carton: 4 - Cannot do the activity by yourself, Wash and dry dishes: 4 - Cannot do the activity by yourself, [place] your teeth: 1 - Able to do activity without difficulty, Use a handkerchief to blow your nose: 1 - Able to do activity without difficulty, Use a bath: 2 - Able to do activity with a little effort, Use the lavoratory: 2 - Able to do activity with a little effort, Wash your face and hands: 3 - Able to do activity with a lot of effort, Tie your shoelaces: 3 - Able to do activity with a lot of effort, Do up buttons: 4 - Cannot do the activity by yourself, Do up a zip: 3 - Able to do activity with a lot of effort, Write a letter: 4 - Cannot do the activity by yourself, Put a letter in an envelope: 3 - Able to do activity with a lot of effort, Hold and read a newspaper: 4 - Cannot do the activity by yourself, Dial a telephone: 3 - Able to do activity with a lot of effort, Make yourself understood on a telephone: 1 - Able to do activity without difficulty, Watch television: 1 - Able to do activity without difficulty, track superintendent your change in a shop: 3 - Able to do activity with a lot of effort, Inset an electrical plug into a socket: 3 - Able to do activity with a lot of effort, Unlock your front door with a mullins: 3 - Able to do activity with a lot of effort, Walk up and down stairs: 4 - Cannot do the activity by yourself, Get up out of an armchair: 2 - Able to do activity with a little effort and Carry a full shopping ba - Able to do activity with a lot of effort
[2024-08-04 09:33] VITALS: BP 140/78; PULSE 75; O2SAT 97; BMI 39.0
== END 2024-08-04 10:38 | disposition home or self-care (01) ==
LOC: HO.HSMS 09:07
PROVIDERS: PCP Internal Medicine; Visit Provider Nurse Practitioner Family
DX: G25.0 Essential tremor (principal); R20.2 Paresthesia of skin; G56.03 Carpal tunnel syndrome, bilateral upper limbs; G43.109 Migraine with aura, not intractable, without status migrainosus; M79.601 Pain in right arm; M79.602 Pain in left arm; R42 Dizziness and giddiness
CPT/HCPCS: 99214

== ENCOUNTER 2024-08-24 12:55 | Outpatient (AMB) | payer MEDICARE, MEDICAID, SELFPAY ==
--- NOTE | 2024-08-24 12:57 | MHC.OFFVIS ---
Vital Signs 08/24/24 12:59 Height 5 ft 2 in Weight 214 lb BMI 39.1 BP 132/70 Blood Pressure Location Lt brachial Position Sitting Pulse 98 Pulse Source Pulse Oximeter Pulse Oximetry (%) 99 Oxygen Delivery Method Room Air Intake Visit Reasons: 3 Months Intake Note: Patient presents today with CTS. Allergies umeclidinium (From Incruse Ellipta) Allergy (Severe, Verified 08/04/24 09:39) Anaphylaxis mold Allergy (Intermediate, Verified 08/04/24 09:39) Itchy Eyes trellegy ellipta Allergy (Uncoded 05/17/24 10:37) Anaphylaxis HPI HPI 3 Months: Details: She is currently experiencing a cold that has not resolved in the last week. She has had benefit with occupational therapy. She is using meloxicam 3 to 4 times a week with benefit. She is using it for PRN pain. She is currently experiencing numbness at the tips of her fingers. She has diagnosis of carpal syndrome in bilateral hands and reports that she failed carpal tunnel release. Her neurology provider has prescribed her wrist braces to wear at night but Carol did not receive the prescription. She has been referred to Orthopedic surgery for management of carpal tunnel syndrome. [facility] Medical History Rupture of ligament of right ankle Rotator cuff injury COPD (chronic obstructive pulmonary disease) Family History Father Myocardial infarction FHx: prostate cancer Emphysema lung Mother HTN (hypertension) Breast cancer Cervical cancer Social History Household Members: None Housing: Apartment Alcohol intake: current Alcohol intake frequency: holidays/special occasions only Patient Tobacco Use Status: Former Tobacco user Substance Use Type: Marijuana Physical Exam Vital Signs: Last Vital Signs Pulse 98 08/24/24 12:59 BP 132/70 08/24/24 12:59 Pulse Ox 99 08/24/24 12:59 Oxygen Delivery Method Room Air 08/24/24 12:59 BMI result Body Mass Index 39.1 Const Other: General: Comfortable Skin: No lesions seen MSK: Tender to palpate multiple DIPJs of bilateral hands. Subluxation of DIPJs. No synovitis of any joint. Weak senior benefits manager bilateral. No tremors noted. Normal range of motion of upper extremity. Normal hip external rotation. Knee flexion bilateral 90 degrees. Assessment & Plan Assessment & Plan (1) Erosive osteoarthritis of hands, bilateral: Comment: Improved pain with meloxicam and occupational therapy. Personally reviewed x-ray with patient, which confirms erosive osteoarthritis. We discussed diagnosis, natural course and management. Code(s): M15.4 - Erosive (osteo)arthritis Category: Medical Plan: She has 1 last session of occupational therapy schedule. Discussed importance of consistency with exercises learned from occupational therapy She will continue to use meloxicam 15 mg PRN hand pain She will have labs for drug monitoring on chronic NSAID prior to requiring refill of her current prescription. Labs have been ordered for patient. 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-inflammatories (nsaid): Code(s): Z79.1 - superintendent container terminal (current) use of non-steroidal anti-inflammatories (NSAID) Category: Medical Plan: See above Orders: Orders Alanine Aminotransferase 3 Months Z79.1 - senior care (current) use of non-steroidal anti-inflammatories (NSAID) Aspartate Amino Transferase 3 Months Z79.1 - superintendent container terminal (current) use of non-steroidal anti-inflammatories (NSAID) Creatinine 3 Months Z79.1 - superintendent container terminal (current) use of non-steroidal anti-inflammatories (NSAID) Medications: Refilled [Bilateral cockup carpal tunnel splint] As directed 2 ea 0RF G56.03 - Carpal tunnel syndrome, bilateral upper limbs Coding Level of Care Code Est Pt Level 3 (53193) Complex EM visit Add On G2211 Diagnoses Erosive osteoarthritis of hands, bilateral M15.4 senior care (current) use of non-steroidal anti-inflammatories (nsaid) Z79.1
[2024-08-24 12:59] VITALS: BP 132/70; PULSE 98; O2SAT 99; BMI 39.1
--- OUTSIDE RECORDS SUMMARY | 2024-08-24 12:59 | XMS_ITS | Clinical Summary ---
Author Organization [address] [facility] Address [address] [place] [address] Phone Care Team Providers Care Dried Fruit Washer Name Role Phone Joel Collado MD Primary Care Provider [phone] Allergies Active Allergy Reactions Criticality Noted Date Comments Cat Dander 05/25/2024 House Dust 05/25/2024 Mold 08/05/2016 Umeclidinium [place] 12/17/2016 Throat tightness (Incruse Ellipta) Medications topiramate [...] each day. 11/09/202 0 Active blood-glucose meter [facility] 3 Active isopropyl alcohol-benzoca ine 70-6 % [...] Incontinence Supply Disposable (Depend Pant Extra Large) [facility] Dep[facility] silhouette L-XL Use 2-3 times daily [...] time each day. 90 each 1 5 025 Active rosuvastatin (CRESTOR) 40 mg tablet Take 1 tablet (40 mg total) by mouth 1 (one) time each day. 90 each 1 5 025 Active aspirin 81 mg EC tablet Take [...] current use of insulin, unspecified CKD stage ([facility] V24, [facility] V28) use to test blood sugar twice daily 200 each 1 5 Active tirzepatide (Mounjaro) 2.5 mg/0.5 mL injectionIndica tions:Morbid obesity ([facility] V24, [facility] V28),HTN (hypertension), benign,MARINO and COPD overlap syndrome ([facility] V24, [facility] V28),Controlled type 2 diabetes mellitus with other diabetic kidney complication, unspecified whether assisted insulin use ([facility] V24, [facility] V28) Inject 0.5 mL (2.5 mg total) under the skin every 7 (seven) days. 2 mL 5 Active Ventolin HFA 90 mcg/actuation inhalerIndicati ons:Non-seasona l allergic rhinitis, unspecified trigger,Chronic obstructive pulmonary disease, unspecified COPD type ([facility] V24, [facility] V28) INHALE 2 PUFFS FOUR TIMES A DAY NEEDED WHEEZING OR SHORTNESS OF BREATH 18 g 3 5 Active wheat dextrin 3 gram/3.5 gram powder in packet Take 1 packet by mouth 1 (one) time each day. 30 packet 5 Active polyethylene glycol (MIRALAX) 17 gram packet Take 17 g by mouth 1 (one) time each day. 510 g 5 025 Active Problems Problem Noted Date Diagnosed Date Moderate obstructive sleep apnea 11/25/2023 Primary osteoarthritis of left knee 06/07/2023 Primary osteoarthritis of right knee 06/07/2023 Morbid obesity with BMI of 4 0.0-44.9, adult ([facility] V24, [facility] V28) 04/05/2023 Morbid obesity ([facility] V24, [facility] V28) 2023 Tension headache 03/18/2023 Type 2 diabetes mellitus, co ntrolled, with renal complications ([facility] V24, [facility] V28) 05/20/2021 Chronic foot pain, right 06/18/2020 Stage 3a chronic kidney disease ([facility] V24, [facility] V28) 12/04/2019 TIA (transient ischemic attack) 04/17/2019 Overview (04/05/2023): Left facial numbness, arm weakness 04/06 Left shoulder tendinitis 12/02/2018 Cervical spondylosis without myelopathy 10/22/19 19 Rotator cuff tendinitis, left 10/21/2018 Pulmonary nodules 08/26/2018 Chronic obstructive pulmonar y disease ([facility] V24, [facility] V28) 08/25/2017 IBS (irritable bowel syndrome) 06/17/2017 MARINO and COPD overlap syndrome ([facility] V24, [facility] V28) 01/21/2017 Overview (04/05/2023): NOT TREATED (April 2019) [facility] Polysomnogram: Date 01/16/2017; Wt 204# SE 78%; SM 94%; REM 23%; RDI 34 (AHI 32), worse in REM (RDI 51- AHI 46), Central apneas 23; Obstructive apneas 86; Mixed apneas 1; hypopneas 109; RERAs 17; average oxygen saturation 895% (lowest 80% - without saturations <88% for 5% or more of study); PLMs 3. [facility]. Date 03/29/2017 . SE 87 % SM 88 %; spent 23 % of the study in REM. At the optimal pressure of CPAP @ 9; RDI 1.2 (AHI 1.2), Central apneas 2; Obstructive apneas 0; Mixed apneas 0; hypopneas 0; RERAs 0; and, average oxygen saturation was 94%. For the entire study, PLMs ~5. [facility] Home Sleep Apnea Test: Date 08/11/2019; BMI 24; RDI 19, AHI 19; average oxygen saturation 95% (lowest 70% without saturations <88% for 5% or more of study) [facility] treatment polysomnogram 05/03/2021; weight 217; BMI 40. [...] test. Obstructive sleep apnea 01/21/2017 Overview (11/25/2023): [facility] treatment Polysomnogram: Date 01/21/2023; Wt 220#; BMI 40.24; SE 92%; SM 94%; REM 13%; CPAP @6 10- 12 cm: AHI 3, REM AHI 2, Central apneas 9; Obstructive apneas 0; Mixed apneas 0; hypopneas 13; average oxygen saturation 94% (lowest 88%); PL~11 [facility] Home Sleep Apnea Test: Date [...] Anxiety 02/28/2014 Depression, major, in partial remission ([facility] V24) 02/28/2014 HTN (hypertension), benign 02/28/2014 Hyperlipidemia 02/28/2014 OAB (overactive bladder) 02/28/2014 Osteoporosis 02/28/2014 Overview (04/05/2023): 08/30 T score spine -1.3 hip -1.1 FRAX score 9.8% 10 year fracture risk 03/06 T score spine -1.7 hip -1.0 FRAX score 20% 10 year fracture risk Encounters Date Type Department Care Team Description 07/26/2024 7:16 AM EDT - 07/26/2024 11:59 PM EDT Hospital Encounter [facility] CT Scan [address] [place] [phone] Encounter for screening for lung cancer; Former smoker Discharge Disposition: Home or Self Care 07/20/2024 2:45 PM EDT Office Visit Walk-In Clinic - [address] [phone] Randy Paz NP Symptoms of upper respiratory infection (URI) (Primary Dx) 07/20/2024 Telephone Internal Medicine - [address] [phone] Joel Collado MD Sore Throat 07/11/2024 Telephone Lung Screening Program - [place] [address] [phone] Evonne Matta [place] Appointment (1st Notification) 07/04/2024 2:00 PM EDT Office Visit Internal Medicine - [address] [phone] Bhavik, Rain, MACHINIST SET UP Abdominal pain, unspecified abdominal location (Primary Dx); Diarrhea, unspecified type; Belching 07/04/2024 Telephone Bariatric Surgery [address] [phone] Melanie Olivares PA Advice Only (Severe stomach pain) 06/29/2024 Telephone Internal Medicine - [address] [phone] Joel Collado MD Hospital Follow-up 06/23/2024 10:30 AM EDT Consult Bariatric Surgery [address] [phone] Melanie Olivares PA Morbid obesity ([facility] V24, [facility] V28) (Primary Dx); HTN (hypertension), benign; MARINO and COPD overlap syndrome ([facility] V24, [facility] V28); Controlled type 2 diabetes mellitus with other diabetic kidney complication, unspecified whether autocad detailer insulin use ([facility] V24, [facility] V28) 05/25/2024 9:00 AM EDT Office Visit Internal Medicine - [facility] [address] [place] [phone] Joel Collado MD Controlled type 2 diabetes mellitus with stage 2 chronic kidney disease, without long-term current use of insulin ([facility] V24, [facility] V28) (Primary Dx); HTN (hypertension), benign; Pure hypercholesterolemi a; Irritable bowel syndrome, unspecified type from Last 3 Months Immunizations Name Administration [...] Haynes OTHER SURGICAL HISTORY 03/12/2015 Right PROCEDURE: AR PARTIAL EXCISION BONE CLAVICLE; COMMENT: Dr. Declan Haynes (distal clavical excision) TUBAL LIGATION PROCEDURE: HISTORICAL TUBAL LIGATION; COMMENT: and tubal BLADDER SURGERY 09/2015 PROCEDURE: HISTORICAL BLADDER SURGERY; COMMENT: bladder sling; Dr. Brannon OTHER SURGICAL HISTORY 08/2018 PROCEDURE: MAMMOGRAM Medical History Medical History Date Comments Diabetes ([facility] V24, [facility] V28) DX:Diabetes ([facility]) Hypertension DX:Hypertension Hyperlipemia DX:Hyperlipemia Obesity DX:Obesity Depression DX:Depression GERD (gastroesophageal reflux disease) DX:GERD (gastroesophageal reflux disease) Fibromyalgia 07/11/2015 DX:Fibromyalgia PTSD (post-traumatic stress disorder) 07/11/2015 DX:PTSD (post-traumatic stress disorder) TIA (transient ischemic attack) 04/17/2019 DX:TIA (transient ischemic attack); COMMENT: Left facial numbness, arm weakness 2/20 Type 2 diabetes mellitus, co ntrolled, with renal complications ([facility] V24, [facility] V28) 05/20/2021 DX:Type 2 diabetes mellitus, controlled, with renal complications ([facility]) COVID-19 virus infection 11/07/2021 DX:COVI D-19 virus infection Right rotator cuff tear 01/21/2016 DX:Right rotator cuff tear; COMMENT: Partial tear s/p repair 03/12/[address] Declan Haynes Family History Medical History Relation Name Comments Lung cancer Brother esophageal canc er Alcohol abuse Daughter Emphysema Father [place], prostate ca ncer Breast cancer Mother Dementia [...] Care Team (Late st Contact Info) Description 09/26/2024 4:25 PM EDT Office Visit Pulmonolgy - [place] [address] [facility] [address] [place] [phone] Jacqui Cuellar NP [address] [place] [address] 09/28/2024 10:15 AM EDT Office Visit Bariatric Surgery - [place] [address] [facility] [address] [place] [phone] Melanie Olivares PA [address] [facility] [address] [place] [address] 10/03/2024 9:20 AM EDT Office Visit [facility] [address] [place] [phone] Patrick Rosen MD [address] [place] [address] [address] [place] [address] 10/13/2024 10:30 AM EDT Appointment Radiology Department [address] [phone] Health Maintenance Due Date Last Done Comments [...] 02/16/2023 Medicare Annual Wellness Visit 02/17/2024 02/16/2023 Influenza Vaccine (#1) 2024 , 11/03/2022, 11/26/2021, Additional history exists Diabetes: Blood Sugar Control Test (HGBA1C) 11/24/2024 [...] Pneumococcal Vaccine: 50+ Years Completed 11/03/2022, 04/24/2012 HIB Vaccines Aged Out No longer eligi [...] of upper respiratory infection (URI) POC RAPID [id number], MOLECULAR Routine 07/20/2024 4:47 PM EDT Symptoms of upper respiratory infection (URI) STREP A PCR Routine 07/20/2024 3:31 PM EDT Symptoms of upper respiratory infection (URI) MICROALBUMIN CREATININE URINE RATIO Routine 05/25/2024 9:37 AM EDT Controlled type 2 diabetes mellitus with stage 2 chronic kidney disease, without long-term current use of insulin ([facility] V24, [facility] V28) COMPREHENSIVE METABOLIC PANEL Routine 05/25/2024 9:36 AM EDT Controlled type 2 diabetes mellitus with stage 2 chronic kidney disease, without long-term current use of insulin ([facility] V24, [facility] V28) HEMOGLOBIN A1C Routine 05/25/2024 9:36 AM EDT Controlled type 2 diabetes mellitus with stage 2 chronic kidney disease, without long-term current use of insulin ([facility] V24, [facility] V28) LIPID PANEL WITH REFLEX TO DIRECT LDL Routine 05/25/2024 9:36 AM EDT Controlled type 2 diabetes mellitus with stage 2 chronic kidney disease, without long-term current use of insulin ([facility] V24, [facility] V28) SCREENING MAMMOGRAPHY BI 2-VIEW BREAST INC CAD Routine 10/07/2023 2:09 PM EDT Encounter for screening mammogram for malignant neoplasm of breast DEPRESSION SCREENING Routine 02/16/2023 FALLS RISK ASSESSMENT [...] Signed Date: 07/26/2024 10:58 ET Workstation ID: [id number] Transcribed By: Self Edit Transcribed Date: 07/26/2024 [...] Signed Date: 07/26/2024 10:58 ET Workstation ID: [id number] Transcribed By: Self Edit Transcribed Date: 07/26/2024 10:47 ET Phil Weems MD IMG CT PROCEDURES Final Result * POC rapid strep A manually resulted (07/20/2024 4:48 PM EDT) [facility] Rapid Strep A Screen POC Negative Negative Swab Structure of anterior portion of neck / Unknown 07/20/2024 4:48 PM EDT Randy Paz NP POINT OF CARE TEST ENTER/EDIT ORDERABLES Final Result * Poc Rapid [id number], MOLECULAR (07/20/2024 4:47 PM EDT) Pathologist [facility] COVID-19/SARS- COV-2 Rapid POC Negative Negative Swab Nasopharyngeal structure / Unknown 07/20/2024 4:47 PM EDT Randy Paz NP POINT OF CARE TEST ENTER/EDIT ORDERABLES Final Result * Strep A molecular study (07/20/2024 3:31 PM EDT) [facility] GRP A Strep PCR Not Detected Not Detected LAB MICROBIOLOGY METHOD 07/20/2024 8:47 PM EDT [facility] Swab Structure of anterior portion of neck / Unknown Non-blood Collection / Unknown 07/20/2024 3:31 PM EDT 07/20/2024 3:31 PM EDT Randy Paz NP LAB MICROBIOLOGY - GENERAL OR DERABLES Final Result Performing Organization Address [facility]/ZIP Co de Phone Number [facility] [address] [place] [address], [place] [phone] * Microalbumin creatinine urine ratio (05/25/2024 9:37 AM EDT) [facility] Creatinine, Urine 38.0 mg/dL LAB CHEMISTRY METHOD 05/25/2024 4:02 PM EDT [facility] Microalb, Ur <5.0 0.0 - 29.0 mg/L LAB CHEMISTRY METHOD 05/25/2024 4:02 PM EDT [facility] Microalb/Creat Ratio <13 <30 mg/g creat LAB CHEMISTRY METHOD 05/25/2024 4:02 PM EDT [facility] Urine Urine specimen obtained by clean catch procedure / Unknown Non-blood Collection / Unknown 05/25/2024 9:37 AM EDT 05/25/2024 9:37 AM EDT Joel Collado MD LAB URINE ORDERABLES Final Res ult Performing Organization Address [facility]/ZIP Co de Phone Number [facility] [address] [place] [address], [place] [phone] * (ABNORMAL) Lipid panel with reflex to direct LDL (05/25/2024 9:36 AM EDT) Cholesterol 207(H) 0 - 200 mg/dL LAB CHEMISTRY METHOD 05/25/2024 12:56 PM EDT [facility] Triglycerides 210(H) 0 - 150 mg/dL LAB CHEMISTRY METHOD 05/25/2024 12:56 PM EDT [facility] HDL 60 >=40 mg/dL LAB CHEMISTRY METHOD 05/25/2024 12:56 PM EDT [facility] LDL Calculated 105(H) 0 - 100 mg/dL LAB CHEMISTRY METHOD 05/25/2024 12:56 PM EDT [facility] VLDL Cholesterol Dann 42 mg/dL LAB CHEMISTRY METHOD 05/25/2024 12:56 PM EDT [facility] Non HDL Chol. (LDL+VLDL) 147(H) <145 mg/dL LAB CHEMISTRY METHOD 05/25/2024 12:56 PM EDT [facility] Chol/HDL Ratio 3.5 0.0 - 4.4 LAB CHEMISTRY METHOD 05/25/2024 12:56 PM T [facility] Blood Venous blood specimen / Unknown Venipuncture / Unknown 05/25/2024 9:36 AM EDT 05/25/2024 9:36 AM EDT us Joel Collado MD LAB BLOOD ORDERABLES Final Res ult [facility] [address] [place] [address], * Hemoglobin A1c (05/25/2024 9:36 AM EDT) Hemoglobin A1C 6.1 <6.5 % LAB CHEMISTRY METHOD 05/25/2024 1:46 PM EDT [facility] Mean Bld Glu Estim. 128 mg/dL LAB CHEMISTRY METHOD 05/25/2024 1:46 PM EDT [facility] Blood Venous blood specimen / Unknown Venipuncture / Unknown 05/25/2024 9:36 AM EDT 05/25/2024 9:36 AM EDT us Joel Collado MD LAB BLOOD ORDERABLES Final Res ult [facility] [address] [place] [address], [place] [phone] * (ABNORMAL) Comprehensive metabolic panel (05/25/2024 9:36 AM EDT) Sodium 142 133 - 145 mmol/L LAB CHEMISTRY METHOD 05/25/2024 12:56 PM [facility] Potassium 3.7 3.5 - 5.5 mmol/L LAB CHEMISTRY METHOD 05/25/2024 12:56 PM [facility] Chloride 109 96 - 110 mmol/L LAB CHEMISTRY METHOD 05/25/2024 12:56 PM [facility] CO2 28 21 - 32 mmol/L LAB CHEMISTRY METHOD 05/25/2024 12:56 PM [facility] Anion Gap 5 3 - 11 LAB CHEMISTRY METHOD 05/25/2024 12:56 PM [facility] Glucose 110(H) 70 - 100 mg/dL LAB CHEMISTRY METHOD 05/25/2024 12:56 PM [facility] BUN 14 5 - 25 mg/dL LAB CHEMISTRY METHOD 05/25/2024 12:56 PM [facility] Creatinine 0.94 0.50 - 1.10 mg/dL LAB CHEMISTRY METHOD 05/25/2024 12:56 PM [facility] eGFR 67 >=60 mL/min/1. 73m2 LAB CHEMISTRY METHOD 05/25/2024 12:56 PM [facility] Comment:Calculation based on the Chronic Kidney Disease Epidemiology Collaboration (CKD-EPI) equation refit without adjustment for race. BUN/Creatinine Ratio 14.9 LAB CHEMISTRY METHOD 05/25/2024 12:56 PM EDT [facility] Calcium 9.1 8.5 - 10.5 mg/dL LAB CHEMISTRY METHOD 05/25/2024 12:56 PM T [facility] AST (SGOT) 16 10 - 42 unit/L LAB CHEMISTRY METHOD 05/25/2024 12:56 PM T [facility] ALT (SGPT) 17 10 - 60 unit/L LAB CHEMISTRY METHOD 05/25/2024 12:56 PM [facility] Alkaline Phosphatase 106 42 - 121 unit/L LAB CHEMISTRY METHOD 05/25/2024 12:56 PM [facility] Total Protein 7.0 6.0 - 8.0 g/dL LAB CHEMISTRY METHOD 05/25/2024 12:56 PM [facility] Albumin 3.5 3.2 - 5.0 g/dL LAB CHEMISTRY METHOD 05/25/2024 12:56 PM [facility] Total Bilirubin 0.2 0.0 - 1.4 mg/dL LAB CHEMISTRY METHOD 05/25/2024 12:56 PM [facility] Blood Venous blood specimen / Unknown Venipuncture / Unknown 05/25/2024 9:36 AM EDT 05/25/2024 9:36 AM EDT us Joel Collado MD LAB BLOOD ORDERABLES Final Res ult [facility] [address] [place] [address], * SCREENING MAMMOGRAPHY BI 2-VIEW BREAST INC [...] % Breast cancer risk category Low (<15%) Result [facility] Jennifer Camacho MACHINIST SET UP IMG XR PROCEDURES Final Result * Falls Risk Assessment (02/16/2023) Falls Risk Assessment abstracted Result [facility] Historical Provider HEALTH MAINTENANCE Final Result * Depression Screening (02/16/2023) Depression Screening abstracted Result [facility] Historical Provider HEALTH MAINTENANCE Final Result * DXA [...] (World Health Organization Fracture Risk Assessment) [facility] of Internal Medicine recommends using National [...] (World Health Organization Fracture Risk Assessment) [facility] of Internal Medicine recommendsusing National Osteoporosis [...] IMG DXA PROCEDURES Fin al Result * Colonoscopy (01/06/2022) [facility] Colonoscopy no interpretation , abstracted Anatomical Region Laterality Modality Other Historical Provider HEALTH MAINTENANCE Final Result * Hepatitis C Screening (05/22/2016) [facility] Hepatitis C Screening abstacted Historical Provider HEALTH MAINTENANCE Final Result from Last 3 Months or Most Recently Relevant to Health Maintenance [place] Care Teams Dried Fruit Washer Relationship Specialty Start Date End Date Joel Collado MD [address] [place] [id number] PCP - General Internal Medicine 12/12/19
== END 2024-08-24 13:33 | disposition home or self-care (01) ==
LOC: HO.RHES 12:56
PROVIDERS: PCP Internal Medicine; Visit Provider Internal Medicine Rheumatology
DX: M15.4 Erosive (osteo)arthritis (principal); Z79.1 Long term (current) use of non-steroidal anti-inflammatories (NSAID)
CPT/HCPCS: 99213; G2211

== ENCOUNTER → 2024-08-24 12:55 | Outpatient (BNVA) | payer MEDICARE, OTHER, SELFPAY | PROVIDERS: PCP Internal Medicine; Visit Provider Internal Medicine Rheumatology | DX: M15.4 Erosive (osteo)arthritis (principal); Z79.1 Long term (current) use of non-steroidal anti-inflammatories (NSAID) | CPT/HCPCS: 99212 ==

== ENCOUNTER 2024-09-07 13:00 | Outpatient (RCR) | payer MEDICARE, OTHER, SELFPAY ==
--- NOTE | 2024-07-26 13:58 | MHC.OT.EP ---
[address] [phone] Occupational Therapy Plan of Care Patient Name: Maria Luisa Mukherjee Date of Evaluation: 07/26/24 Diagnosis: B/L Hand OA Pain Location: Constant pain through hand/digits, specifically DIPs Left 9/10 Right 7/10 Pain Score: 9 Pain Scale Used: Numeric (0 - 10) Aggravating Factors: General use Alleviating Factors: Ibuprofen occasionally Has pre-yue thumb spica for CTS Assessment: 68 yo female w/ hx of B/L hand OA, referred to OT for conservative treatment and strengthening. On assessment today, she has good range in wrist and hands, but has some decreased strength and has numbness/tingling in B/L hands. She has difficulty with heavier home care and cooking needs, trouble with gripping, object manipulation and prolonged gripping. She has painful DIP nodules and atrophy in B/L thenar eminences, but also onset of nerve symptoms w/ CTS assessment. We will continue hand therapy services for education ion joint protection and activity modification, with addition of home program for maintaining range and improving functional strength for daily activities. Frequency and Duration: The patient will be seen 2x/wk for 3 weeks Short Term Goals: Ind w/ HEP Pt to bring rashmi equipment to trial activity modification Progress to strengthening Ind w/ heat.cold modalities for comfort and range Retirement Goals: Ind w/ joint protection and activity modification technqiues Left brick and blocker aid labor strength >35lb QuickDASH score <40 pts Treatment Plan: Therapeutic Exercise Therapeutic Activity Home Exercise Program Splinting Patient Education Edema Control ADL Training Paraffin Fluidotherapy MHP Cold Packs Joint Mobilization Soft Tissue Mobilization Kinesiotaping Electronically Signed By: Neris Carrera, OTR/L CHT Please Sign and return to therapist. Thank you once again for your referral.
--- NOTE | 2024-09-07 13:45 | MHC.OT.DC ---
[address] [phone] F: [phone] Occupational Therapy Discharge Note Patient Name: Maria Luisa Mukherjee Provider: Dr Mariano Juarez Diagnosis: B/L Hand OA Date of Evaluation: 07/26/24 Date of Discharge: 09/07/24 Treatments to Date: 6 Discharge Status: Independent with HEP Discharge Summary: 68 yo female was referred to OT w/ B/L hands pain consistent with arthritis and CTS. She has had brief course of OT for education of joint protection, pain management, home exercise and splint fabrication. She has good follow through w/ home program and nighttime orthosis wear, and has good understanding of self management techniques. Electronically Signed By: Neris Carrera OTR/L CHT Reviewed/agree with student documentation: Therapist: Please Sign and return to therapist, thank you for your referral.
== END 2024-09-07 13:46 | disposition home or self-care (01) ==
LOC: HO.OT 13:00
PROVIDERS: PCP Internal Medicine; Visit Provider Internal Medicine Rheumatology
DX: M19.041 Primary osteoarthritis, right hand (principal); M19.042 Primary osteoarthritis, left hand
CPT/HCPCS: 29130; 97110; 97140; 97165; 97760

== ENCOUNTER 2024-11-22 10:36 | Outpatient (REF) | payer MEDICARE, MEDICAID, SELFPAY ==
--- NOTE | 2024-11-22 10:40 | EMG_ITS ---
Chief complaint: Bilateral hand numbness, neck pain History of carpal tunnel release bilateral more than 30 years ago. Last EMG by Dr. Stoddard 06/29/2023, read as mild bilateral Carpal Tunnel Syndrome. Reason for referral: Evaluate for Carpal Tunnel Syndrome versus cervical radiculopathy Referred by: Pablo MOMIN Procedure done: Upper extremity NCS/EMG Precautions and/or limitations: None The limb temperature was monitored continuously and remained between 32-36 degrees C during the performance of the NCS. Nerve Conduction Studies Anti Sensory Summary Table ?Stim Site NR Onset (ms) Norm Onset (ms) Peak (ms) Norm Peak (ms) O-P Amp (?V) Norm O-P Amp Site1 Site2 Delta-0 (ms) Dist (cm) Luc (m/s) Norm Luc (m/s) Left Median Anti Sensory (2nd Digit) Wrist ? 3.0 3.6 <3.6 20.0 >10 Wrist 2nd Digit 3.0 14.0 47 Right Median Anti Sensory (2nd Digit) Wrist ? 2.6 3.2 <3.6 24.0 >10 Wrist 2nd Digit 2.6 14.0 54 Right Radial Anti Sensory (Thumb) Forearm ? 1.6 2.2 <3.1 10.4 Forearm Thumb 1.6 0.0 Left Ulnar Anti Sensory (5th Digit) Wrist ? 2.5 3.2 <3.7 18.0 >15.0 Wrist 5th Digit 2.5 14.0 56 Right Ulnar Anti Sensory (5th Digit) Wrist ? 2.6 3.2 <3.7 18.7 >15.0 Wrist 5th Digit 2.6 14.0 54 Motor Summary Table ?Stim Site NR Onset (ms) Norm Onset (ms) O-P Amp (mV) Norm O-P Amp iAmp (mV) Amp (1st) (%) Site1 Site2 Delta-0 (ms) Dist (cm) Luc (m/s) Norm Luc (m/s) Left Median Motor (Abd Poll Brev) Wrist ? 3.9 <3.9 9.7 >4.5 12.2 100.0 Elbow Wrist 3.5 19.0 54 >45 Elbow ? 7.4 9.0 10.8 92.8 Right Median Motor (Abd Poll Brev) Wrist ? 3.2 <3.9 10.5 >4.5 13.2 100.0 Elbow Wrist 3.5 19.0 54 >45 Elbow ? 6.7 10.2 12.6 97.1 Left Ulnar Motor (Abd Dig Minimi) Wrist ? 2.7 <3.0 8.3 >5 10.7 100.0 B Elbow Wrist 2.8 17.0 61 >45 B Elbow ? 5.5 7.9 10.4 95.2 A Elbow B Elbow 1.3 10.0 77 >45 A Elbow ? 6.8 7.9 10.3 95.2 Right Ulnar Motor (Abd Dig Minimi) Wrist ? 2.7 <3.0 5.9 >5 7.8 100.0 B Elbow Wrist 2.8 15.0 54 >45 B Elbow ? 5.5 6.8 8.7 115.3 A Elbow B Elbow 1.6 10.0 63 >45 A Elbow ? 7.1 6.1 7.8 103.4 EMG ?Side Muscle Nerve Root Ins Act Fibs Psw Amp Dur Poly Recrt Int Pat Comment Right 1stDorInt Ulnar C8-T1 Nml Nml Nml Nml Nml 0 Nml Complete Right FlexCarRad Median C6-7 Nml Nml Nml Nml Nml 0 Nml Complete Right Biceps Musculocut C5-6 Nml Nml Nml Nml Nml 0 Nml Complete Right Triceps Radial C6-7-8 Nml Nml Nml Nml Nml 0 Nml Complete Right Deltoid Axillary C5-6 Nml Nml Nml Nml Nml 0 Nml Complete Left 1stDorInt Ulnar C8-T1 Nml Nml Nml Nml Nml 0 Nml Complete Left FlexCarRad Median C6-7 Nml Nml Nml Nml Nml 0 Nml Complete Left Biceps Musculocut C5-6 Nml Nml Nml Nml Nml 0 Nml Complete Left Triceps Radial C6-7-8 Nml Nml Nml Nml Nml 0 Nml Complete Left Deltoid Axillary C5-6 Nml Nml Nml Nml Nml 0 Nml Complete Paraspinal EMG ?Side Muscle Nerve Root Ins Act Fibs Psw Comment Right Cervical Upper Rami Nml Nml Nml Right Cervical Mid Rami Nml Nml Nml Right Cervical Lower Rami Nml Nml Nml Left Cervical Upper Rami Nml Nml Nml Left Cervical Mid Rami Nml Nml Nml Left Cervical Lower Rami Nml Nml Nml FINDINGS: All motor and sensory nerves tested showed normal latencies, amplitudes and conduction velocities. Concentric needle EMG was performed in selected muscles of the bilateral upper extremities and cervical paraspinals. Study did not reveal signs of electric abnormalities as shown in the table above. IMPRESSION: 1. This is a normal study. 2. There is no electrodiagnostic evidence for median neuropathy, ulnar neuropathy, brachial plexopathy, or cervical radiculopathy. Thank you for your kind referral. Marce Alcazar MD, VERÓNICA Board Certified, [place] [employer] (ABPMR) Board Certified, [place] [employer] Electro[employer] (ABEM) CODIN [phone]
== END 2024-11-22 10:37 | disposition home or self-care (01) ==
LOC: HO.NEURO 10:36
PROVIDERS: PCP Internal Medicine
DX: R20.0 Anesthesia of skin (principal); R20.2 Paresthesia of skin
CPT/HCPCS: 95886; 95911

== ENCOUNTER → 2024-11-22 10:40 | Outpatient (BNV) | payer MEDICARE, MEDICAID, SELFPAY | PROVIDERS: PCP Internal Medicine; Visit Provider Physical Medicine & Rehabilitation | DX: R20.0 Anesthesia of skin (principal); M54.2 Cervicalgia | CPT/HCPCS: 95886; 95911 ==